=== PATIENT | male | born 1960 | race Caucasian/White ===

== ENCOUNTER 2017-03-07 12:27 | Emergency (ER) | payer MEDICARE, MEDICAID ==
[~2017-03-07] VITALS: Ht 167.6 cm; Wt 54.4 kg
[~2017-03-07 12:27] MED LIST: ALBUTEROL-200 PUFFS/ IH; ETODOLAC400 MG PO; FLEXERIL10 MG PO; KEPPRA 500 MG500 MG PO; LEVAQUIN 750 M750 MG PO; LEXAPRO 20 MG T20 MG PO; LISINOPRIL 10MG10 MG PO; NAPROSYN500 M1 PO; NEURONTIN 300M300 MG PO; NEURONTIN800 MG PO; OXYCODONE HCL10 M1 PO; PERCOCET 10 MG1 EACH PO; PERCOCET 325 MG1 TA3 PO; PRILOSEC40 MG PO; SIMVASTATIN20 MG PO; WELLBUTRIN 75MG75 MG PO; XANAX 1MG TABLET1 MG PO
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
[2017-03-07 12:58] LABS: LYMPH # 2.4 K/mm3 (0.7-4.5); LYMPH % 20.5 % (10-50)
[2017-03-07 13:08] LABS: BUN 14 mg/dL (7-18); GFR (ESTIMATED) 77 ML/MIN (>60)
--- OUTSIDE RECORDS SUMMARY | 2017-03-07 13:51 | External Medical Summary Rpt | CCD ---
Author Author , MARIE Organization MARIE Address Unknown Phone [email or web address] Care Team Providers Care Inside Wirer Name Role Phone AHMED ADN, AHMED ADN Unavailable Unavailable AHMED, GUY A, Unavailable Unavailable AHMED, GUY A [facility], Unavailable Unavailable [employer] AIKAT SHA, AIKAT SHA Unavailable Unavailable ALHAJERI ABD, Unavailable Unavailable ALHAJERI ABD ALLRAN JR HANK, ALLRAN Unavailable Unavailable JR HANK SAMMARINESE AMBULETT & Unavailable Unavailable AMBULANC, SAMMARINESE AMBULETT & AMBULANC SAMMARINESE AMBULETT & Unavailable Unavailable AMBULANC, SAMMARINESE AMBULETT & AMBULANC DERIK MARAVILLA Unavailable Unavailable OMAR ROSENBERG Unavailable Unavailable OMAR MAXWELL, Unavailable Unavailable ,PSC, OMAR MAXWELL MD,PSC SKY HINSON Unavailable Unavailable JAKE BENSALEM DOMNIIK, Unavailable Unavailable BENSALEM DOMINIK HAMILTON, HAMILTON Unavailable Unavailable HAMILTON ALL, HAMILTON ALL Unavailable Unavailable [facility] Unavailable Unavailable [facility] [place] Unavailable Unavailable [facility] Unavailable Unavailable SERVICE, [facility] Unavailable Unavailable [facility], [facility] Unavailable Unavailable CONSULTANTS O, [facility] AMARJIT TIJERINA, Unavailable Unavailable AMARJIT TIJERINA KAITYKAITY LONGORIA Unavailable Unavailable RYA DANO COATES Unavailable Unavailable FABRICE GATES, Unavailable Unavailable FABRICE MATSON [facility], Unavailable Unavailable [facility] HARDING BRONSON, HARDING BRONSON Unavailable Unavailable HARDING, PANCHITO A, Unavailable Unavailable HARDING, PANCHITO A [facility] Unavailable Unavailable AN[facility]ESIA P[facility], [facility] Unavailable Unavailable AND RE[facility], [facility] COOK JESSI, COOK JESSI Unavailable Unavailable NAZANIN REID, Unavailable Unavailable NAZANIN REID NISHI JR MICHAEL, NISHI Unavailable Unavailable JR MICHAEL DISANTIS TIANNA, Unavailable Unavailable DISANTIS TIANNA TONI, G T, TONI, G Unavailable Unavailable T [facility], [facility] Unavailable Unavailable ELEANOR OTOOLE, Unavailable Unavailable ELEANOR OTOOLE GLORIA, BURKE Unavailable Unavailable GLORIA GAL THO, GAL THO Unavailable Unavailable PAWAN CARLITOS, Unavailable Unavailable PAWAN CARLITOS GHALI GALI, GHALI GALI Unavailable Unavailable MCCARTHY DASHA, Unavailable Unavailable MCCARTHY DASHA MARIE HARVEY Unavailable Unavailable DEDRA YARELI RHO, YARELI Unavailable Unavailable RHO YARELI, SOUARV G, Unavailable Unavailable YARELI, SOURAV G SPENCERCHGISSEL, Unavailable Unavailable STAS Chance, STAS HIDALGO BARRY D, Unavailable Unavailable MALVIN DE LA O JASON A, Unavailable Unavailable CLEMONSSONJA MCCLAIN [facility] Unavailable Unavailable INC, [facility] Unavailable Unavailable HOSPITAL P, [facility] P EVELIO CRENSHAW, FRASER Unavailable Unavailable FLOWER VLADIMIR FRASER S, Unavailable Unavailable VLADIMIR FRASER S [facility], Unavailable Unavailable [facility] MILES MCKENNA Unavailable Unavailable JOAQUINA BOWMAN, Unavailable Unavailable JOAQUINA BOWMAN HUBER JUL Unavailable Unavailable CHING ALEMAN, CHING Unavailable Unavailable ASH MITA II ELIAZAR, MITA Unavailable Unavailable II ELIAZAR MELENDEZ-CROW GEOVANNY, Unavailable Unavailable MELENDEZ-CROW GEOVANNY MELENDEZ-CROW GEOVANNY, Unavailable Unavailable MELENDEZ-CROW GEOVANNY [facility] Unavailable Unavailable CLINIC, [facility] Unavailable Unavailable IMAGING [facility], [facility] TORSTEN RADHA, TORSTEN RADHA Unavailable Unavailable DMITRY C, DMITRY C Unavailable [facility]available [facility] Unavailable Unavailable [facility], [facility] Unavailable Unavailable HOLDING, [facility] LORNE JR DWI, LORNE Unavailable Unavailable JR DWI KRISTIAN ARRIOLA, Unavailable Unavailable KRISTIAN ARRIOLA MD, Unavailable Unavailable Tyron Briceño MD SAVANNAH ANT, SAVANNAH Unavailable Unavailable ANT [facility] Unavailable Unavailable SERVICES, [facility] Unavailable Unavailable ASSOCIAT, [facility] MERHAR GAR, MERHAR Unavailable Unavailable [facility] Unavailable Unavailable [facility], [facility] IN [facility]OS ITZ OLIVAREZ, Unavailable Unavailable ITZ OLIVAREZ GRAHAM MELISSA, GRAHAM MELISSA Unavailable Unavailable [facility] Unavailable Unavailable [facility], [facility], Unavailable Unavailable [facility] Unavailable Unavailable AMBULANCE SE, [facility] Unavailable Unavailable AMBULANCE SE, [facility] Unavailable Unavailable HEALTH, [facility] NICKELS TIANNA, NICKELS Unavailable Unavailable TIANNA NICKL III SAMANTHA, NICKL Unavailable Unavailable III SAMANTHA BRONSON MEHDI LOPEZ Unavailable Unavailable CONSULTING SRV, BRONSON HARDING MD CONSULTING SRV [facility], Unavailable Unavailable PLL[facility], [facility] PELLANT FLOWER, PELLANT Unavailable Unavailable FLOWER RENUSCH, RENUSCH Unavailable Unavailable RENUSCH RADHA, RENUSCH Unavailable Unavailable RADHA LUKE, LUCERO Unavailable Unavailable ANT MARCIO LUCERO M, Unavailable Unavailable MARCIO LUCERO M JR. REGINALD WALTON, Unavailable Unavailable JR. REGINALD WALTON GAN SAMANTHA, GAN Unavailable Unavailable SAMANTHA ERIC MAT, Unavailable Unavailable ERIC MAT SOKAN BAB, SOKAN BAB Unavailable Unavailable SOTINGEANU JAKE, Unavailable Unavailable SOTINGEANU [facility] Unavailable Unavailable [facility], Unavailable Unavailable [facility] CLARKE SCO, CLARKE Unavailable Unavailable SCO TAMNILEN, FERMIN, Unavailable Unavailable TAMJOSÉ MIGUEL ALBERTOET BORIS VERONIKA, BORIS Unavailable Unavailable VERONIKA MATTHEWS LUIS, MATTHEWS LUIS Unavailable Unavailable [facility] Unavailable Unavailable ASSIST, [facility], Unavailable Unavailable [facility] Unavailable Unavailable [facility], [facility] INTER VILLAFLOR OSI, Unavailable Unavailable VILLAFLOR OSI VILLAFLOR OSI, Unavailable Unavailable VILLAFLOR OSI VILLAFLOR, JAG M, Unavailable Unavailable VILLAFLOR, JAG M MIRIAM, Unavailable Unavailable MIRIAM WIGNAKUMAR, Unavailable Unavailable VELUPILLAI, WIGNAKUMAR, VELUPILLAI CABRAL JAM, CABRAL JAM Unavailable Unavailable JAMIE MAT, JAMIE MAT Unavailable Unavailable CHELSEA AYALA, Unavailable Unavailable CHELSEA AYALA Purpose Continuity of Care Document - 09-12-2008 through 2016 Problems Code Diagnosis DOS Provider Status I10 ESSENTIAL 10-29-2016 [facility], HYPERTENSIO 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 J441 CHRONIC 03-31-2016 [facility] OBSTRUCTIVE PHYSICIANS, PULMONARY [facility] DZ W/EXACERBAT ION R05 COUGH 03-31-2016 [facility] R079 CHEST PAIN 03-31-2016 [facility] UNSPECIFIED [facility] IM[facility]ING ASS Z720 TOBACCO USE 03-31-2016 [facility] G894 CHRONIC 03-25-2016 [facility] PAIN [facility] SYNDROME INC I2510 ASHD KAIBAB 03-25-2016 [facility] CORONARY [facility] ARTERY W/O INC ANGINA PECTORIS J449 CHRONIC 03-25-2016 [facility] OBSTRUCTIVE [facility] PULMONARY INC DISEASE UNS M549 DORSALGIA 03-14-2016 [facility] UNSPECIFIED PHYSICIANS, [facility] B74194 PERSONAL 03-14-2016 [facility] HISTORY OF [facility] NICOTINE INC DEPENDENCE K8590 ACUTE 02-21-2016 [facility] PANCREATITI SERV S WO FOUNDATION NECROSIS/IN FECTION UNSPEC I714 ABDOMINAL 02-01-2016 [facility] AORTIC [facility]ICAL ANEURYSM IMAGING ASS WITHOUT RUPTURE K838 OTHER 02-01-2016 [facility] SPECIFIED MEDICAL DISEASES OF IMAGING ASS BILIARY TRACT K868 OTHER 02-01-2016 [facility] SPECIFIED MEDICAL DISEASES OF IMAGING ASS PANCREAS B62022 ENCOUNTER 01-30-2016 [facility] FOR [facility] PREPROCEDUR INC AL LABORATORY EXAM G8929 OTHER 01-16-2016 [facility] CHRONIC PHYSICIANS PAIN GROUP M4694 UNS 01-16-2016 [facility] INFLAMMATOR PHYSICIANS Y GROUP SPONDYLOPAT HY THORACIC REGION Z61513 OTHER LONG 01-16-2016 [facility] TERM [facility] CURRENT INC DRUG THERAPY L0390 CELLULITIS 01-08-2016 [facility] UNSPECIFIED PHYSICIANS GROUP M5090 CERVICAL 01-08-2016 [facility] DISC PHYSICIANS DISORDER GROUP UNS UNS CERVICAL REGION R1012 LEFT UPPER 10-22-2015 [facility] QUADRANT SERV PAIN FOUNDATION L50491 PAIN IN ARM 10-14-2015 [facility] UNSPECIFIED AMBULANCE SE R1010 UPPER 10-14-2015 [facility] ABDOMINAL [facility] PAIN INC UNSPECIFIED O614BUG COMP 10-14-2015 [facility] AMBULANCE CARE UNS SE INITIAL ENCNTR M4802 SPINAL 09-22-2015 [facility] STENOSIS PHYSICIANS CERVICAL GROUP REGION M9983 OTHER 09-11-2015 [facility] BIOMECHANIC PHYSICIANS AL LESIONS GROUP OF LUMBAR REGION K8050 CALCULUS BD 09-06-2015 [facility] W/O SERV CHOLANGITIS FOUNDATION /CHOLECYST W/O OBST K831 OBSTRUCTION 09-06-2015 [facility] OF BILE SERV DUCT FOUNDATION R188 OTHER 09-05-2015 [facility] ASCITES SERV FOUNDATION R740 NONSPECIFIC 09-05-2015 [facility] ELEVATION SERV LEVELS FOUNDATION TRANSAMINAS E & LDH K859 ACUTE 09-04-2015 [facility] PANCREATITI N PHYSICIAN S SERVI UNSPECIFIED E785 HYPERLIPIDE 09-03-2015 [facility] UNSPECIFIED K567 ILEUS 09-03-2015 [facility] I259 CHRONIC 09-02-2015 [facility] ISCHEMIC SERV HEART FOUNDATION DISEASE UNSPECIFIED K8020 CALCULUS GB 09-02-2015 [facility] W/O PHYSICIANS, CHOLECYSTIT PLLC IS W/O OBSTRUCTION R7989 OTHER SPEC 09-02-2015 [facility] ABNORMAL MEDICAL FINDINGS IMAGING ASS BLOOD CHEMISTRY I422 OTHER 08-18-2015 [facility] HYPERTROPHI MEM HOSP C INC CARDIOMYOPA THY M488X6 OTHER 08-18-2015 [facility] SPECIFIED PHYSICIANS SPONDYLOPAT GROUP HIES LUMBAR REGION E860 DEHYDRATION 08-04-2015 [facility], PLLC R1033 PERIUMBILIC 08-04-2015 [facility] AL PAIN MEDICAL IMAGING ASS R110 NAUSEA 08-04-2015 [facility] AMBULANCE SE R112 NAUSEA WITH 08-04-2015 [facility] VOMITING PHYSICIANS, UNSPECIFIED PLLC Z955 PRESENCE OF 08-04-2015 [facility] P IMPLANT & GRAFT C54709 SPONDYLOSIS 06-30-2015 [facility] W/O MEDICAL MYELOPATH/R IMAGING ASS ADICULOPATH Y LUMB RGN M5126 OT 06-30-2015 [facility] INTERVERTEB MEDICAL RAL DISC IMAGING ASS DISPLACEMEN T LUMBAR RGN M546 PAIN IN 06-30-2015 [facility] THORACIC MEDICAL SPINE IMAGING ASS R0989 OT SPEC SX 05-25-2015 [facility] & SIGNS MEDICAL INVLV THE IMAGING ASS CIRC & RESP SYS M4692 UNS 05-03-2015 [facility] INFLAMMATOR PHYSICIANS Y GROUP SPONDYLOPAT HY CERVICAL REGION M5030 OT 05-03-2015 [facility] CERVICAL PHYSICIANS DISC GROUP DEGENERATIO N UNS CERV REGION M9981 OTHER 05-03-2015 [facility] BIOMECHANIC PHYSICIANS AL LESIONS GROUP OF CERVICAL REGION R9089 OT 05-03-2015 [facility] ABNORMAL PHYSICIANS FIND ON DX GROUP IMAGING [facility] NERV SYS M5032 [facility] CERV 04-21-2015 [place] DISC MEDICAL DEGENERATIO IMAGING ASS N MID-CERVICA L REGION 58130 BARRETTS 08-06-2013 [facility]OP[facility]AG[facility] PSC 48135 ATROPHIC 08-06-2013 NEW GASTRITIS [place] WITHOUT CLINIC PSC MENTION OF HEMORRHAGE 69178 ABDOMINAL 08-06-2013 [facility] PAIN, H UNSPECIFIED ANESTHESIA SITE PSC 496 CHRONIC 08-03-2013 [facility] OBSTRUCTION ASSOCIAT NEC 15706 SOLITARY 08-03-2013 [facility] PULMONARY RADIOLOGY NODULE ASSOCIAT 4414 ABDOMINAL 08-01-2013 [facility] ANEURYSM RADIOLOGY WITHOUT ASSOCIAT MENTION OF RUPTURE V4579 OTHER 08-01-2013 [facility] ACQUIRED RADIOLOGY ABSENCE OF ASSOCIAT ORGAN 59499 UNSPEC 07-21-2013 [facility] EPILEPSY [facility] WITHOUT RURAL MENTION HEALTH INTRACT EPILEPSY 4619 ACUTE 07-21-2013 [facility] SINUSITIS, [facility] UNSPECIFIED RURAL HEALTH 2724 OTHER AND 07-08-2013 [facility] UNSPECIFIED [facility] RURAL HYPERLIPIDE HEALTH ANGEL 4011 ESSENTIAL 07-08-2013 [facility] HYPERTENSIO [facility] N, BENIGN [facility] 53630 COR 07-08-2013 [facility] ATHEROSLERO [facility] UNSPEC RURAL TYPE VESSEL HEALTH KAIBAB/LUPILLO T 64629 ACUT 07-06-2013 [facility] LAR INFARCT UNS CONSULTANTS SITE EPIS O CARE UNS 304.70 304.70 04-10-2013 [place] OPIOID/OTHE [facility] DEP-UNSPEC 304.71 304.71 04-10-2013 [place] OPIOID/OTHE [facility] DEP-CONTIN 305.00 305.00 04-10-2013 [place] [facility] C 780.39 780.39 04-10-2013 [place] OTHER [facility] 7862 COUGH 04-10-2013 [facility] 7842 SWELLING 03-09-2013 [facility] MASS OR RADIOLOGY LUMP IN ASSOCIAT HEAD AND NECK 3384 CHRONIC 02-17-2013 [facility] PAIN [facility] SYNDROME [facility] 7210 CERVICAL 02-17-2013 [facility] SPONDYLOSIS [facility] WITHOUT [facility] MYELOPATHY [facility] 7231 CERVICALGIA 02-17-2013 [facility] 41663 HYPERTROPHY 10-13-2012 [facility] PROSTATE HEALTH W/O UR OBST CLINIC & OTH LUTS 7804 DIZZINESS 10-13-2012 [facility] GIDDINESS CLINIC 65956 INSOMNIA 10-13-2012 [facility] UNSPECIFIED HEALTH CLINIC 7224 DEGENERATIO 09-24-2012 [facility] N OF H SLEEP AND CERVICAL REHA INTERVERTEB RAL DISC 7234 BRACHIAL 09-24-2012 [facility] NEURITIS OR H SLEEP AND REHA RADICULITIS NOS V5417 AFTERCARE 09-24-2012 [facility] SERV TRAUMATIC FOUNDATIO FRACTURE [place]E V5489 OTHER 09-24-2012 [facility] AFTERCARE E8889 UNSPECIFIED 09-22-2012 [facility]IN[facility] 4400 ATHEROSCLER 09-16-2012 [facility] OSIS OF SERV AORTA FOUNDATIO 82030 PATHOLOGIC 09-16-2012 [facility] FRACTURE OF SERV VERTEBRAE FOUNDATIO 84140 OTHER 09-16-2012 [facility] CONVULSIONS SERV FOUNDATIO 02144 CLOS FX 09-16-2012 [facility] VERTEBRA UNS LEVL W/O SP CRD INJURY 90596 CLOS FX C3 09-16-2012 [facility] [place] SERV W/O MENTION FOUNDATIO SP CRD INJURY 16799 SUBARACH 09-16-2012 [facility] HEMOR [facility] SERV INJR W/O FOUNDATIO OPN ICW UNS SOC 18199 SUBARACH 09-16-2012 [facility] INJR W/O OPN ICW NO LOC 9582 SEC&RECURRE 09-16-2012 SAMMARINESE NT AMBULETT & HEMORRHAGE AMBULANC AN EARLY COMP TRAUMA V454 ARTHRODESIS 09-16-2012 [facility] 21773 OTH FORM 09-15-2012 [facility] RURAL EPILEPSY & HEALTH RECUR CLINIC SEIZUR NO INTRACT EPIL 69745 OTHER 09-15-2012 [facility] DISEASES OF RADIOLOGY LUNG NOT ASSOCIAT ELSEWHERE CLASSIFIED 01915 SWELLING OF 09-15-2012 [facility] LIMB RADIOLOGY ASSOCIAT 51542 ALTERED 09-15-2012 [facility] MENTAL HEALTH STATUS CLINIC 920 CONTUSION 09-15-2012 [facility] OF FACE RADIOLOGY SCALP AND ASSOCIAT NECK EXCEPT EYE 7048 OTHER 05-21-2012 [facility] SPECIFIED HEALTH DISEASE OF CLINIC HAIR&HAIR FOLLICLES 6820 CELLULITIS 05-14-2012 [facility] RURAL AND ABSCESS HEALTH OF FACE CLINIC 2811 OTHER 12-09-2011 [facility] VITAMIN B12 OSI DEFICIENCY ANEMIA 98190 OSTEOARTHRO 12-09-2011 [facility] S UNSPEC OSI WHETHER GEN/LOC UNSPEC SITE 56023 UNSPECIFIED 10-28-2011 [facility] DISORDER RADIOLOGY OF SHOULDER ASSOCIAT JOINT 9057 LATE EFF 10-28-2011 [facility], SPRAIN&STRA ACQUISITIONS LIBRARIAN IN W/O [facility] MENTION HOS TENDON INJURY V4589 OTHER 10-28-2011 [facility], POSTSURGICA ACQUISITIONS LIBRARIAN L STATUS [facility] OTHER HOS 69165 SINOATRIAL 10-07-2011 [facility] NODE OSI DYSFUNCTION 62929 OSTEOARTHRO 07-29-2011 [facility] S UNSPEC OSI WHETHER GEN/LOC SHLDR REGION 24129 PRECORDIAL 03-26-[address] MD CONSULTING SRV 2768 HYPOPOTASSE 12-10-2010 CAROLYNE ANGEL OSI 586 UNSPECIFIED 12-10-2010 [facility] FAILURE V1551 PERSONAL 12-10-2010 O[facility] HISTORY OF OSI TRAUMATIC FRACTURE 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 W/O MENTION SP CRD INJURY 7028 OTHER 11-21-2010 [facility] SPECIFIED SERV DERMATOSES FOUNDATIO 14863 CLOSED 11-12-2010 [facility] FRACTURE OF OSI HEAD OF RADIUS 7384 ACQUIRED 11-02-2010 [facility] SPONDYLOLIS SERV THESIS FOUNDATIO 42368 CLOS FX C6 11-02-2010 [facility]RA PHYSICIANS W/O MENTION ASSIST SP CRD INJURY 4019 UNSPECIFIED 11-01-2010 [facility] HYPERTENSIO INTER N 4580 ORTHOSTATIC 11-01-2010 [facility] HYPOTENSION INTER E8869 OTH & UNS 11-01-2010 [facility] FALL ON INTER SAME LEVEL 7802 SYNCOPE AND 10-31-2010 [facility] COLLAPSE SERV FOUNDATIO 39642 OTH NONSPC 10-31-2010 [facility] ABN FINDNG SERV RAD&OTH EXM FOUNDATIO BODY STRUCTURE V7281 PRE-OPERATI 10-31-2010 [facility] CARDIOVASCU FOUNDATIO LAR EXAMINATION 2761 HYPOSMOLALI 10-30-2010 [facility] TY AND/OR HOSPITAL HYPONATREMI A 58811 SWELLING OR 10-30-2010 [facility] MASS OF RADIOLOGY EYE ASSOCIAT 41409 OCCLUSION&S 10-30-2010 [facility] TENOS SERV CAROTID ART FOUNDATIO W/O MENTION INFARCT 44047 OCCLUSION&S 10-30-2010 [facility] TENOS VERT SERV ART W/O FOUNDATIO MENTION INFARCT 93558 OTHER 10-30-2010 [facility] DISEASES OF SERV NASAL FOUNDATIO CAVITY AND SINUSES 08526 DEGEN 10-30-2010 [facility] LUMBAR/LUMB SERV OSACRAL FOUNDATIO INTERVERTEB RAL DISC 7226 DEGENERATIO 10-30-2010 [facility] RAL DISC SITE UNSPEC 7230 SPINAL 10-30-2010 [facility] [place] STENOSIS IN RADIOLOGY CERVICAL REGION 39138 OTHER 10-30-2010 [facility] FATIGUE 7840 HEADACHE 10-30-2010 [facility] ASSOCIAT 42604 SHORTNESS 10-30-2010 [facility] 43047 URINARY 10-30-2010 [facility] 7937 NONSPC ABN 10-30-2010 [facility] FINDNG RAD RADIOLOGY & OTH EXM ASSOCIAT MUSCULSKELT L SYS 9210 BLACK EYE, 10-30-2010 [facility] NOT RADIOLOGY OTHERWISE ASSOCIAT SPECIFIED 12142 HEAD 10-30-2010 [facility] INJURY, RADIOLOGY UNSPECIFIED ASSOCIAT 58773 INJURY OF 10-30-2010 [facility] FACE AND RADIOLOGY NECK OTHER ASSOCIAT AND UNSPECIFIED 09245 OTHER 10-30-2010 [facility] INJURY OF RADIOLOGY OTHER SITES ASSOCIAT OF TRUNK E8490 PLACE OF 10-30-2010 [facility] OCCURRENCE, HOSPITAL HOME E8888 OTHER FALL 10-30-2010 [facility] 7869 OTH 08-27-2010 [facility] SYMPTOMS HOSPITAL INVOLVING RESPIRATORY SYSTEM&CHES T V5869 LONG-TERM 08-27-2010 [facility] (CURRENT) HOSPITAL USE OF OTHER MEDICATIONS 4739 UNSPECIFIED 08-17-2010 [facility] SINUSITIS [facility] 61223 HEMATURIA 08-17-2010 [place] UNSPECIFIED EMERGENCY SERVICES 47959 CHEST PAIN 08-17-2010 [facility] [place] UNSPECIFIED RADIOLOGY 02281 PAINFUL 08-17-2010 [place] RESPIRATION EMERGENCY SERVICES 7944 NONSPECIFIC 08-17-2010 [facility] HOSPITAL KIDNEY FUNCTION STUDY 7931 NONSPEC 07-09-2010 [facility] [place] FIND RAD RADIOLOGY OTH EXAM BODY STRUCT LUNG FIELD 9635 POISONING 04-19-2010 [facility] BY VITAMINS OSI NOT ELSEWHERE CLASSIFIED V0481 NEED 02-16-2010 [facility] PROPHYLACTI OSI C VACCINATION &INOCULATIO N FLU 49721 LOSS OF 02-14-2010 [facility] NKLIN GEOVANNY 04531 NAUSEA WITH 02-14-2010 [facility] VOMITING NKLIN GEOVANNY 78898 TRANSIENT 01-27-2010 [facility] IN ALTERATION [facility] 4139 OTHER AND 12-25-2009 CARDIOLOG[facility] UNSPECIFIED ASSOCIATES ANGINA OF MEGHAN PECTORIS 79589 SPONDYLOSIS 12-22-2009 [facility] UNSPEC OSI SITE W/O MENTION MYELOPATHY 2722 MIXED 12-20-2009 [facility] HYPERLIPIDE HOSPITAL ANGEL 3278 OTHER 12-07-2009 BRON[facility] ANDRADE MD SLEEP CONSULTING DISORDERS SRV 85393 HYPERSOMNIA 12-07-2009 [facility] HARDING MD UNSPECIFIED CONSULTING SRV 24320 DYSFNCT 12-05-2009 [facility] W/SLEEP HOSPITAL STGES/AROUS AL FRM SLEEP 58161 UNSPECIFIED 12-05-2009 [facility] V851 BODY MASS 12-05-2009 [facility] 19[facility]24 ADULT 91854 GENERALIZED 12-04-2009 [facility], ANXIETY JAG M DISORDER V173 FAMILY 11-14-2009 [facility] MEHDI HISTORY OF ISCHEMIC CONSULTING HEART SRV PSC DISEASE 2720 PURE 11-07-2009 [facility] 4920 EMPHYSEMATO 11-07-2009 [facility] [place] BLEB RADIOLOGY 486 PNEUMONIA, 10-05-2009 [facility]GANISM [facility] UNSPECIFIED ASSOCIATES PSC 514 PULMONARY 07-03-2009 [facility]AT HYPOSTASIS 3699 UNSPECIFIED 04-14-2009 [facility] VISUAL HOSPITAL LOSS 75208 UNSPECIFIED 04-14-2009 [facility] [place]ITAL [place]CTIVI TIS 23184 PAIN IN OR 04-14-2009 [place] [facility] FOUNDAT[facility] 34736 UNSPECIFIED 04-13-2009 [facility] SCLER[facility]IS [facility]OSPITAL 7220 DISPLCMT 03-14-2009 [facility] [place] CERV RADIOLOGY INTERVERT DISC WITHOUT MYELOPATHY 84676 DEGEN 03-14-2009 [facility]/TH [facility] INTERVERTEB [facility]AL [facility]C 7241 PAIN IN 03-14-2009 [facility] [place] THORACIC RADIOLOGY SPINE 2763 ALKALOSIS 01-14-2009 K[facility]STIAN ARRIOLA 74645 [facility] 01-14-2009 ABIDA ARRIOLA ACUT/CHRN W/O HEMOR PERF/OBST 5770 ACUTE 01-14-2009 [facility] PANCREATITI KRISTIAN Faye S 91572 DEHYDRATION 10-09-2008 WIGNAKUMAR, VELUPILLAI 5771 CHRONIC 10-09-2008 WIGNAKUMAR, PANCREATITI VELUPILLAI S 38351 ABDOMINAL 10-09-2008 WIGNAKUMAR, PAIN, VELUPILLAI EPIGASTRIC 60334 UNSPECIFIED 10-08-2008 [facility]OP[facility]AG[facility]IS [facility]OSPITAL 20124 CHRON/UNS 10-08-2008 [facility] W[facility] W/O MENTION OBST 10862 ACUT DUOD 10-08-2008 [facility] W/[facility] W/O MENTION ASSOC OBSTRUCTION 54700 UNS 10-08-2008 [facility] GASTRITIS&G [facility] ASTRODUODIT [facility] IS W/O MENTION HEMORR 5362 PERSISTENT 10-08-2008 [facility] MEDICINE [facility]OC 5368 DYSPEPSIA&O 10-08-2008 [facility] DISORDERS [facility] FUNCTION STOMACH 5533 DIAPHRAGMAT 10-08-2008 [facility] [place] [facility] W/O RADIOLOGY MENTION OBSTRUCTION /GANGREN 00341 OTHER 09-14-2008 [facility] SPECIFIED RADIOLOGY DISORDER OF ASSOCIATES INTESTINES PSC Allergies, Adverse Reactions, Alerts Type Allergy to substance Adverse Reaction to Substance Substance Reaction Severity STEROIDS Unknown Unknown Medications Na ND Rx Da Fi Fi Am Da Di Ph RX Ph St me C No te ll ll ou ys ag ar # ys at rm s nt no ma ic us Or Da si cy ia de te s n re d CL 00 11 0 No ON 90 -2 ID 45 3- Lo IN 65 20 ng E 66 13 er HC 1 L Ac 0. ti 1 ve MG TA BL ET Immunization Name Date Rout CVX Reac Dose Comm Prov Is Faci e tion ent ider Refu lity Give sed n IIV3 10-0 141 VILL No VILL 1-20 AFLO AFLO VACC 10 R R INE OSI SPLI T VIRU OSI S 0.5 ML DOSA GE IM USE Vital Signs 04-10-2013 17:13 Name Value Interpretat Reference Comment ion Range BP 84 mm[Hg] Diastolic BP Systolic 125 mm[Hg] Heart 90 /min Rate/Pulse O2% 97 % Respiratory 20 /min Rate 04-10-2013 14:51 Name Value Interpretat Reference Comment ion Range BP 92 mm[Hg] Diastolic BP Systolic 149 mm[Hg] Heart 90 /min Rate/Pulse O2% 97 % Respiratory 20 /min Rate Results Labs Lab Lab Date Result Refere Interp Status Commen Order Detail nces retati t Range on SYPHILIS IGG TEST (EIA) (02-15-2014 08:00) Test Kitchen Home Economist: Zenaida Ordonez MD FCAP Lab: [facility] [place] [facility] Services Lab Address: [address] [place] [address], [address] [place] [address] 02-15-2014 8:00 am Specimen Collection Start Date/Time: Assistant Plant Controller: Specimen [email or web address] 02-18-2014 9:14 am Date/Time: [facility]-18-2014 2:37 pm Results Rpt/Status Change Date/Time: This report contains patient information that must be protected in accordance with the Health Insurance Portability and Accountability Act. COLLECT NA complet OR 014 ed 08:00 ETHNICI W complet TY 014 ed 08:00 PURPOSE ROUTINE complet OF 014 ed EXAM 08:00 SPECIME BLOOD complet N 014 ed SOURCE 08:00 CHART [id number] complet NUMBER 014 ed 08:00 SYPHILI NON-ROBERTO complet S IGG 014 CTIVE ed TEST 08:00 (EIA) Comment: METHOD OF ANALYSIS: EIA Comment: NORMAL RANGE: NON-REACTIVE Comment: \E\.br\E\This report contains patient information that must be protected in accordance with the Health Insurance Portability and Accountability Act. Treponema pallidum IgG Ab [Presence] in Serum by Immunoassay (02-15-2014 08:00) Trepone NON-ROBERTO complet ma 014 CTIVE ed pallidu 08:00 m IgG Ab [Presen ce] in Serum by Immunoa ssay Treponema pallidum IgG Ab [Presence] in Serum by Immunoassay (02-15-2014 08:00) COLLECT NA complet OR 014 ed 08:00 ETHNICI W complet TY 014 ed 08:00 PURPOSE ROUTINE complet OF 014 ed EXAM 08:00 SPECIME BLOOD complet N 014 ed SOURCE 08:00 CHART [id number] complet NUMBER 014 ed 08:00 Trepone Pending complet ma 014 ed pallidu 08:00 m IgG Ab [Presen ce] in Serum by Immunoa ssay COMPREHENSIVE METABOLIC PANEL (04-10-2013 13:50) Glucose 97 74-106 complet 013 mg/dL ed Bld-mCn 13:50 c BUN 7 mg/dL 7-18 complet Bld-mCn 013 ed c 13:50 Creat 0.9 0.8-1.3 complet SerPl-m 013 mg/dL ed Cnc 13:50 Creat 79 50-200 complet Cl 013 ML/MIN ed predict 13:50 ed SerPl C-G-vRa te GFR/BSA 89 Greater complet .pred 013 ML/MIN than ed SerPl 13:50 60 Schwart z-vRate Sodium 138 136-145 complet SerPl-s 013 mmoL/L ed Cnc 13:50 Potassi 4.3 3.5-5.1 complet um 013 mmoL/L ed SerPl-s 13:50 Cnc Chlorid 101 98-107 complet e 013 mmoL/L ed SerPl-s 13:50 Cnc CO2 11-23-2 29 21.0-32 complet SerPl-s 013 mmoL/L .0 ed Cnc 13:50 Calcium 11-23-2 8.5 8.5-10. complet 013 mg/dL 1 ed SerPl-m 13:50 Cnc Prot 11-23-2 8.0 6.4-8.2 complet SerPl-m 013 gm/dL ed Cnc 13:50 Albumin 11-23-2 3.2 3.4-5.0 complet 013 gm/dL ed SerPl-m 13:50 Cnc Globuli 11-23-2 4.8 1.3-3.2 complet n 013 gm/dL ed Ser-mCn 13:50 c Albumin 11-23-2 0.7 UNK 1.1-1.8 complet /Glob 013 ed SerPl-m 13:50 Rto Bilirub 11-23-2 0.2 0.2-1.0 complet 013 mg/dL ed SerPl-m 13:50 Cnc AST 11-23-2 33 U/L 15-37 complet SerPl-c 013 ed Cnc 13:50 ALT 11-23-2 60 U/L 30-65 complet SerPl-c 013 ed Cnc 13:50 ALP 11-23-2 147 U/L 50-136 complet SerPl-c 013 ed Cnc 13:50 Acetamin SerPl-mCnc (04-10-2013 13:50) Acetami 11-23-2 0 ug/mL 10-30 complet n 013 ed SerPl-m 13:50 Cnc Ethanol Bld-mCnc (04-10-2013 13:50) Ethanol 11-23-2 0 mg/dL 0-99 complet 013 ed Bld-mCn 13:50 c Salicylates SerPl-mCnc (04-10-2013 13:50) Salicyl 11-23-2 5.0 2.8-20. complet ates 013 mg/dL 0 ed SerPl-m 13:50 Cnc CBC with AUTO DIFF (04-10-2013 13:50) WBC # 11-23-2 10.7 4.8-10. complet Bld 013 K/MM3 8 ed Auto 13:50 RBC # 11-23-2 4.61 4.6-6.2 complet Bld 013 M/mm3 ed Auto 13:50 Hgb 11-23-2 14.0 14.1-18 complet Bld-mCn 013 g/dL .0 ed c 13:50 Hct Fr 11-23-2 42.1 % 42.0-52 complet Bld 013 .0 ed 13:50 MCV RBC 11-23-2 91.1 fl 82.2-97 complet 013 .8 ed 13:50 MCH RBC 11-23-2 30.3 pg 27-31.2 complet Qn 013 ed Auto 13:50 MEAN 11-23-2 33.3 31.8-35 complet CORPUSC 013 g/dl .4 ed ULAR 13:50 HGB CONC RDW RBC 11-23-2 15.6 % 11.5-17 complet Auto 013 .5 ed 13:50 Platele 11-23-2 300 142-424 complet t Bld 013 K/mm3 ed Ql 13:50 Manual MEAN 11-23-2 7.2 fl 7.4-10. complet PLATELE 013 4 ed T 13:50 VOLUME Granulo 11-23-2 72.6 % 37.0-80 complet cytes 013 .0 ed Fr Bld 13:50 Auto LYMPH % 11-23-2 17.6 % 10-50 complet 013 ed 13:50 Monocyt 11-23-2 6.0 % 1.7-9.3 complet es Fr 013 ed Bld 13:50 Auto Eosinop 11-23-2 3.3 % 0.1-12. complet hil Fr 013 0 ed Bld 13:50 Auto Basophi 11-23-2 0.5 % 0.1-2.0 complet ls Fr 013 ed Bld 13:50 Auto Granulo 11-23-2 7.8 1.3-8.0 complet cytes # 013 K/mm3 ed Bld 13:50 Auto Lymphoc 11-23-2 1.9 0.7-4.5 complet ytes Fr 013 K/mm3 ed Bld 13:50 Auto Monocyt 11-23-2 0.6 0.1-1.0 complet es # 013 K/mm3 ed Bld 13:50 Auto Eosinop 11-23-2 0.4 0.0-0.4 complet hil # 013 K/mm3 ed Bld 13:50 Auto Basophi 11-23-2 0.1 0-0.2 complet ls # 013 K/MM3 ed Bld 13:50 Auto URINALYSIS/COMPLETE (04-10-2013 13:50) URINE 11-23-2 YELLOW YELLOW complet COLOR 013 ed 13:50 URINE 11-23-2 CLEAR CLEAR complet APPEARA 013 ed NCE 13:50 URINE 11-23-2 NEGATIV NEG complet GLUCOSE 013 E ed - 13:50 DIPSTIC K URINE 11-23-2 NEGATIV NEG complet BILIRUB 013 E ed IN - 13:50 DIPSTIC K URINE 11-23-2 NEGATIV NEG complet KETONE 013 E mg/dL ed 13:50 URINE 11-23-2 Less 1.005-1 complet SPECIFI 013 than or .030 ed C 13:50 equal GRAVITY to 1.005 URINE 11-23-2 1+ NEG complet BLOOD 013 ed 13:50 URINE 11-23-2 6.5 UNK 5.0-8.5 complet PH 013 ed 13:50 URINE 11-23-2 NEGATIV NEG complet PROTEIN 013 E mg/dL ed - 13:50 DIPSTIC K URINE 11-23-2 0.2 NEG complet UROBILI 013 E.U./dL ed NOGEN - 13:50 DIPSTIC K URINE 11-23-2 NEGATIV NEG complet NITRATE 013 E ed - 13:50 DIPSTIC K URINE 11-23-2 NEGATIV NEG complet LEUK 013 E ed ESTERAS 13:50 E URINE 11-23-2 OCC 0 complet RBC 013 rbc/hpf ed 13:50 URINE 11-23-2 OCC OCC complet SQUAMOU 013 #/hpf ed S CELLS 13:50 Procedures Procedure [place] [address] [place] ABDOMEN & 7 MEDICAL PELVIS IMAGING W/[place] [address] [facility] LIPASE 7 [facility] INC INC BLOOD 93219 [facility] COUNT 7 [facility] COMPLETE INC INC AUTO&[place] [address] [facility] B[facility] AMYLASE 7 [facility] INC INC COMPREHEN 07030 [facility] SIVE 7 [facility] METABOLIC INC INC PANEL DRUG TEST 95608 OMAR NELSON PRSMV 7 SHANE MAXWELL MD,PSC CHEMISTRY ANALYZERS COMPREHEN 41003 OMAR NAVARRO 7 CELIA [place] [address] NELSON NELSON GLUTAMYLT 7 EMILY MAXWELL MD,PSC GAMMA BLOOD 13707 NELSON NELSON COUNT 7 EM MAXWELL MD,PSC AUTO&AUTO DIFRNTL WBC COLLECTIO 91327 NELSON NELSON N VENOUS 7 ART MAXWELL [place] [address] NELSON NELSON PHOSPHORU 7 Thomas MAXWELL MD,PSC INORGANIC BILIRUBIN 55451 NELSON NELSON DIRECT 7 MD ALISSA,[place] [address] NELSON PELLANT TESTOSTER 6 FLOWER MAXWELL TOTAL ,PSC COLLECTIO 10614 NELSON PELLANT N VENOUS 6 FLOWER MAXWELL MD,PSC VENIPUNCT URE BLOOD 01735 NELSON PELLANT COUNT 6 FLOWER MAXWELL MD,PSC AUTO&[place] [address] NELSON PELLANT GLUTAMYLT 6 FLOWER MAXWELL MD,PSC GAMMA COMPREHEN 09894 NELSON PELLANT SIVE 6 FLOWER MAXWELL MD,PSC PANEL DRUG TEST G0479 NELSON PELLANT 6 FLOWER MAXWELL PRESUMP;I ,PSC NSTRUMENT ED CHEMISTRY ANLYZER COMPREHEN 63600 [facility] B[facility] SIVE 6 [facility] [place] [address] [facility] INFUSION 6 [facility] THER INC INC PROPH ADDL SEQUENTIA L TO 1 HR PRESSURIZ 28570 [facility] ED/NONPRE 6 [facility] SSURIZED [place] [address] [facility] INFUSION 6 [facility] THERAPY/P INC INC ROPHYLAXI S /DX 1ST TO 1 HR BLOOD 49918 [facility] COUNT 6 [facility] COMPLETE INC INC AUTO&AUTO DIFRNTL WBC RADIOLOGI 31156 [facility] C EXAM 6 [facility] CHEST 2 INC INC VIEWS FRONTAL&L ATERAL INJECTION J2405 [facility] 6 [facility] ONDANSETR INC INC ON HCL PER 1 MG THERAPEUT 85035 [facility] IC 6 [facility] PROPHYLAC INC INC TIC/DX INJECTION SUBQ/IM THERAPEUT 09117 [facility] IC 6 [facility] PROPHYLAC INC INC TIC/DX INJECTION SUBQ/IM LOCM Q9967 [facility] [phone] 6 [facility] MG/ML INC [place] [address] [facility] ANGIOGRAP 6 [facility] HY INC INC ABDOMEN W/CONTRAS T/[place] [address] ESSENCE HAMILTON ALL ABDOMEN 6 MEDICAL W/O IMAGING CONTRAST ASS MATERIAL COLLECTIO 11422 [facility] B[facility] N VENOUS 6 [facility] BLOOD INC INC VENIPUNCT URE BASIC 86567 [facility] METABOLIC 6 [facility] [place] [address] [facility] RETROPERI 6 [facility] TONEAL INC [place] W/[place] [address] ESSENCE HAM[place] ALL RETROPERI 6 MEDICAL TONEAL IMAGING REAL TIME ASS W/IMAGE LIMITED DRUG TST G0477 [facility] PRESUMP;C 6 [facility] PBL BEING INC INC READ DC OPT OBV ONLY GROUND A0425 [facility] [address] PER AMBULANCE AMBULANCE STATUTE SE SE MILE AMBULANCE A0429 [facility] SERVICE [address] [place] [address] AMBULANCE AMBULANCE EMERGENCY SE SE TRANSPORT GROUND A0425 [facility] [address] PER AMBULANCE AMBULANCE STATUTE SE SE MILE AMBULANCE A0429 [facility] [address] [place] [address] AMBULANCE AMBULANCE EMERGENCY SE SE TRANSPORT THERAPEUT 87659 [facility] IC 6 [facility] PROPHYLAC INC INC TIC/DX INJECTION SUBQ/IM DRUG TST G0477 [facility] PRESUMP;C 6 [facility] PBL BEING INC INC READ DC OPT OBV ONLY DRUG TST G0477 [facility] B[facility] PRESUMP;C 6 [facility] PBL BEING INC INC READ DC OPT OBV ONLY HOSPITAL 10416 [facility] DISCHARGE 6 DM DAY PHYSICIAN MANAGEMEN SERVI T > 30 MIN SBSQ 99875 [facility] 6 DM CARE/DAY PHYSICIAN 25 SERVI MINUTES SBSQ 73967 [facility] 6 DM CARE/DAY PHYSICIAN 25 SERVI MINUTES DIL PANC [id number] [facility] DUCT 6 Y Y [facility] DEV ASHLEY/ART OPENING ENDO EXCISION [id number] [facility] BILE 6 Y Y DUCT [facility] ASHLEY/ART OPENING ENDO DX DILATION [id number] [facility] BILE 6 Y Y DUCT [facility] DEVC ASHLEY/ART OP ENDO CMBN NDSC 05554 [facility] CATHJ 6 MEDICAL SCO BILIARY&P SERV NCRTC FOUNDATIO DUCTAL N SYS RS&I ERCP 35901 [place] NICKL III STENT 6 MEDICAL SAMANTHA PLACEMENT SERV FOUNDATIO BILIARY/P N ANCREATIC DUCT MRI 10406 [place] MELISSA ABDOMEN 6 MEDICAL W/O & SERV W/CONTRAS FOUNDATIO T N MATERIAL SBSQ 16746 [facility] 6 DM CARE/DAY PHYSICIAN 25 SERVI MINUTES SBSQ 00599 [facility] 6 DM CARE/DAY PHYSICIAN 35 SERVI MINUTES INITIAL 43333 [facility] 6 MEDICAL CARE/DAY SERV [place] [address] [place] ABDOMINAL 6 MEDICAL GLORIA REAL SERV TIME FOUNDATIO W/IMAGE N LIMITED INITIAL 28055 [facility] 6 DM MICHAEL CARE/DAY PHYSICIAN 70 SERVI MINUTES THER 24716 [facility] PROPH/DX 6 [facility] NJX EA INC INC SEQL IV PUSH SBST/[place] [address] [facility] INFUSION 6 [facility] THERAPY/P INC INC ROPHYLAXI S /DX 1ST TO 1 HR THERAPEUT 70577 [facility] IC 6 [facility] INJECTION INC INC IV PUSH EACH NEW DRUG LOCM Q9967 [facility] [phone] 6 [facility] MG/ML INC INC IODINE CONCENTRA TION PER ML INJECTION J2405 [facility] 6 [facility] ONDANSETR INC INC ON HCL PER 1 MG COMPREHEN 60606 [facility] SIVE 6 [facility] [place] [address] [facility] AMYLASE 6 [facility] INC INC BLOOD 82034 [facility] B[facility] COUNT 6 [facility] COMPLETE INC INC AUTO&[place] [address] [facility] PURCELLINEKE ABDOMEN & 6 MEDICAL JAKE PELVIS IMAGING W/[place] [address] [facility] LIPASE 6 [facility] INC INC AMBULANCE A0428 [facility] SERVICE 6 AMBULANCE AMBULANCE [facility] SERVICE SERVICE [facility] TRANSPORT GROUND A0425 [facility] MILEAGE 6 AMBULANCE AMBULANCE PER SERVICE SERVICE STATUTE MILE AMBULANCE A0429 [facility] SERVICE 6 [facility] AMBULANCE AMBULANCE EMERGENCY SE [place] [address] ESSENCE BACK ABDOMEN 6 MEDICAL REID W/O IMAGING CONTRAST ASS MATERIAL BLOOD 48743 [facility] COUNT 6 [facility] COMPLETE INC INC AUTO&AUTO DIFRNTL WBC COLLECTIO 38440 [facility] B[facility] N VENOUS 6 [facility] [place] [address] [facility] FREE 6 [facility] [place] [address] [facility] B[facility] THYROID 6 [facility] HOSP STIMULATI INC INC NG HORMONE TSH 3D 92015 ESSENCE NAZANIN RENDERING 6 MEDICAL REID W/INTERP IMAGING & ASS POSTPROCE SS SUPERVISI ON LIPID 88763 [facility] B[facility] PANEL 6 [facility] INC INC HEPATIC 87159 [facility] FUNCTION 6 [facility] PANEL INC INC BASIC 13410 [facility] METABOLIC 6 [facility] PANEL INC INC CALCIUM TOTAL ECG 12906 [facility] ROUTINE 6 [facility] ECG INC INC W/LEAST 12 LDS TRCG ONLY W/O I&R DRUG TST G0477 [facility] B[facility] PRESUMP;C 6 [facility] PBL BEING INC INC READ DC OPT OBV ONLY DRUG TEST G0481 [facility] DEFINITV [address] [address] ID INC INC METH P DAY 8-14 DRUG CL CV STRS 89341 [facility] TST 6 PHYSICIAN XERS&/OR S GROUP RX CONT ECG W/O I&R MYOCARDIA 07347 ESSENCE H[facility] ALL L SPECT 6 MEDICAL MULTIPLE IMAGING STUDIES ASS SBSQ 31294 [place] [address] PHYSICIAN GLORIA CARE/DAY S GROUP 15 MINUTES INITIAL [address] [place] [address] PHYSICIAN GLORIA CARE/DAY S GROUP [address] [place] [address] [facility] [place] ALL ABDOMEN & 6 MEDICAL PELVIS IMAGING W/CONTRAS ASS T MATERIAL ECG 19970 [facility] PRADHAN JR ROUTINE 6 [facility] W/LEAST P 12 LDS I&R ONLY ECG 14595 [facility] PRADHAN JR ROUTINE 6 [facility] W/LEAST P 12 LDS I&[place] [address] [facility] ALL ABDOMEN & 6 MEDICAL PELVIS IMAGING W/O ASS CONTRAST MATERIAL INITIAL 32751 [facility] 6 PHYSICIAN HANK CARE/DAY S GROUP 50 MINUTES GROUND A0425 [facility] MILEAGE [address] [place] [address] PER AMBULANCE AMBULANCE STATUTE SE SE MILE AMB A0427 [facility] SERVICE [address] [place] [address] ALS AMBULANCE AMBULANCE EMERGENCY SE SE TRANSPORT LEVEL 1 DRUG TST G0483 [facility] DEFINITV [address] [facility] [address] ID INC INC METH P DAY 22/MORE DR CL DRUG TST G0477 [facility] B[facility] PRESUMP;C 6 [facility] PBL BEING INC INC READ DC OPT OBV ONLY 3D 07594 ESSENCE BACK RENDERING 6 MEDICAL REID W/INTERP IMAGING & ASS POSTPROCE SS SUPERVISI ON MRI 07092 [place] NAZANIN SPINAL 6 MEDICAL REID CANAL IMAGING THORACIC ASS W/O CONTRAST MATRL MRI 87281 ESSENCE BACK SPINAL 6 MEDICAL REID CANAL IMAGING LUMBAR ASS W/O CONTRAST MATERIAL DRUG TST G0477 [facility] PRESUMP;C 6 [facility] PBL BEING INC INC READ DC OPT OBV ONLY F2 GENE 46094 [employer] ANALYSIS [employer] , [employer] , [employer] 61730X >A VARIANT ECG 20504 [facility] ROUTINE 6 [facility] ECG INC INC W/LEAST 12 LDS TRCG ONLY W/O I&R MTHFR 38917 [employer] GENE [employer] , [employer] ANALYSIS COMMON VARIANTS F5 55616 [employer] COAGULATI [employer] , [employer] ON FACTOR V ANAL LEIDEN VARIANT DUPLEX 87228 [facility] SCAN 6 [facility] EXTRACRAN INC INC IAL ART COMPL BI STUDY DRUG TST G0477 [facility] PRESUMP;C 6 [facility] PBL BEING INC INC READ DC OPT OBV ONLY E-STIM G0283 [facility] 1/> AREAS 5 [facility] OTH THAN INC INC WND CARE PART TX PLAN THERAPEUT 32700 [facility] IC PX 1/> 5 [facility] AREAS INC INC EACH 15 MIN EXERCISES APPL 23682 [facility] MODALITY 5 [facility] 1/> AREAS INC INC ELEC STIMJ UNATTENDE D APPLICATI 04186 [facility] ON 5 [facility] MODALITY INC INC 1/> AREAS HOT/COLD PACKS MANUAL 64371 [facility] THERAPY 5 [facility] TQS 1/> INC INC REGIONS EACH 15 MINUTES APPL 59136 [facility] MODALITY 5 [facility] 1/> AREAS INC INC ELEC STIMJ UNATTENDE D PHYSICAL 78508 [facility] B[facility] THERAPY 5 [facility] EVALUATIO INC INC N THERAPEUT 09670 [facility] IC PX 1/> 5 [facility] AREAS INC INC EACH 15 MIN EXERCISES E-STIM G0283 [facility] B[facility] 1/> AREAS 5 [facility] OTH THAN INC INC WND CARE PART TX PLAN CARRY MOV G8984 [facility] HANDLNG 5 [facility] OBJ FCN INC INC LERMA CUR TX REP INTRVL CAR MOV G8985 [facility] HDLG OBJ 5 [facility] PROJ GOAL INC INC TX OUTSET&RE P INTRVL 3D 58052 [facility] RENDERING 5 [facility] W/INTERP INC INC & POSTPROCE SS SUPERVISI ON MRI 08243 [facility] SPINAL 5 [facility] CANAL INC INC CERVICAL W/O CONTRAST MATRL ANES 61129 [facility] GAN UPPER GI 4 LTH SAMANTHA ENDOSCOPY ANESTHESI PROXIMAL A PSC TO DUODENUM SPECIAL 85970 GUDELIA ESCALANTE STAIN 4 [facility] 1 CLINIC MICROORGA PSC NISMS I&[place] [address] GUDELIA ESCALANTE SURG 4 [facility]INIC PSC GROSS&GLORIA ROSCOPIC EXAM RADEX ABD 00586 [facility] COMPL 4 FLOWER AQT ABD RADIOLOGY W/S/E/D ASSOCIAT V[place] [place] [address] [facility] ABDOMEN & 4 FLOWER PELVIS RADIOLOGY W/[place] PRQ 69693 [facility] ERIC TRLU 4 CULAR MAT CORONARY CONSULTAN STENT TS O W/ANGIO ONE ART/BRNCH ECHO 90966 [facility] TTHRC R-T 4 CULAR MAT 2D CONSULTAN W/WOM-MOD TS O E COMPL SPEC&COLR D CATH PLMT 51569 C[facility] ERIC L HRT & 4 CULAR MAT ARTS CONSULTAN W/NJX & TS O ANGIO IMG S&I INITIAL 94551 [facility] 4 CULAR MAT CARE/DAY CONSULTAN 70 TS O MINUTES RADIOLOGI 04790 ESSENCE Gotti 3 MEDICAL REID EXAMINATI IMAGING ON CHEST ASS SINGLE VIEW FRONTAL RADIOLOGI 42075 [facility] [place] YARELI C EXAM 3 RADIOLOGY RHO CHEST 2 VIEWS FRONTAL&L ATERAL RADIOLOGI 71286 [facility] C EXAM 3 FLOWER CHEST 2 RADIOLOGY VIEWS ASSOCIAT FRONTAL&[place] [address] [facility] HEAD/BRAI 3 FLOWER N W/O RADIOLOGY CONTRAST ASSOCIAT MATERIAL ELECTROEN 85815 MHC INC, MHC INC, CEPHALOGR 3 ACQUISITIONS LIBRARIAN ACQUISITIONS LIBRARIAN AM W/REC [facility] AWAKE&ASL CO HOS CO HOS EEP RADEX 43299 [facility] SPINE 3 Y Y CERVICAL [facility] 2 OR 3 VIEWS RADEX 08160 [place] SPINE 3 MEDICAL TIANNA CERVICAL SERV 2 [place] [address] [place] [address] [place] MERHAR THORACIC 3 MEDICAL GAR SPINE W/O SERV CONTRAST FOUNDATIO MATERIAL INJECTION J1953 [facility] 3 Y Y LEVETIRAC [facility] ETAM 10 MG INFUSION J7050 [facility] NORMAL 3 Y Y SALINE [facility] SOLUTION [address] [place] [address] [facility] INFUSION 3 Y Y THERAPY/P [facility] ROPHYLAXI S /DX 1ST TO 1 HR GROUND A0425 SAMMARINESE SAMMARINESE MILEAGE 3 AMBULETT AMBULETT PER & & STATUTE AMBULANC AMBULANC MILE INJECTION J2270 [facility] MORPHINE 3 Y Y SULFATE [facility] UP TO 10 MG THERAPEUT 67451 [facility] IC 3 Y Y INJECTION [facility] [place] [address] TITI MCCARTHY HEAD/BRAI 3 MEDICAL DASHA N W/[place] [address] [place] [facility] CERVICAL 3 MEDICAL GAR SPINE W/O SERV CONTRAST FOUNDATIO MATERIAL CT LUMBAR 137[address] [place] [facility] SPINE 3 MEDICAL GAR W/O SERV CONTRAST FOUNDATIO MATERIAL AMB [id number] [facility] SAM[facility]INESE SERVICE 3 [facility] AMBULETT ALS & & EMERGENCY AMBULANC AMBULANC TRANSPORT LEVEL 1 RADIOLOGI 63278 [facility] 3 JESSI CHEST 2 RADIOLOGY VIEWS ASSOCIAT FRONTAL&L ATERAL CT ORBIT 42985 [facility] SELLA/POS 3 JESSI T RADIOLOGY FOSSA/EAR ASSOCIAT W/[place] [address] ERVIN MATSON CERVICAL 3 JESSI SPINE W/O RADIOLOGY CONTRAST ASSOCIAT MATERIAL [facility] R[facility] 12 LDS I&[place] [address] ERVIN MATSON HEAD/BRAI 3 JESSI N W/O RADIOLOGY CONTRAST ASSOCIAT MATERIAL FLUOR 28155 [facility] II NEEDLE/CA 3 LTH SLEEP ELIAZAR TH AND REHA SPINE/PAR ASPINAL DX/THER ADDON MODERATE 00371 [facility] II SEDATJ 3 LTH SLEEP ELIAZAR SAME AND REHA PHYS/QHP 5/>YRS INIT 30 MIN NJX 34938 [facility] II DX/THER 3 LTH SLEEP ELIAZAR SBST AND REHA EPIDURAL/ SUBRACH CERV/THOR ACIC NJX 52417 [facility] II DX/THER 3 LTH SLEEP ELIAZAR SBST AND REHA EPIDURAL/ SUBRACH CERV/THOR ACIC MODERATE 56874 [facility]A II SEDATJ 3 LTH SLEEP ELIAZAR SAME AND REHA PHYS/QHP 5/>YRS INIT 30 MIN LOCM Q9966 [facility] [phone] [facility] MG/ML IODINE CONCENTRA TION PER ML FLUOR 23319 [facility]ON[facility] MITA II NEEDLE/CA 3 LTH SLEEP ELIAZAR TH AND REHA SPINE/PAR ASPINAL DX/THER ADDON TENS E0730 EMPI INC EMPI INC DEVICE 3 4/MORE LEADS MULTI NERVE STIMULATI ON TENS E0730 EMPI INC EMPI INC DEVICE 2 4/MORE LEADS MULTI NERVE STIMULATI ON RADIOLOGI 60363 ERVIN MATSON C EXAM 2 JESSI CHEST 2 RADIOLOGY VIEWS ASSOCIAT FRONTAL&L ATERAL FLUOR 37678 [facility] MITA II NEEDLE/CA 2 LTH SLEEP ELIAZAR TH AND REHA SPINE/PAR ASPINAL DX/[place] NJX 62663 [facility]A II DX/THER 2 LTH SLEEP ELIAZAR SBST AND REHA EPIDURAL/ SUBRACH CERV/THOR ACIC INJECTION J1030 [facility]OR VILLAFLOR 2 OSI OSI METHYLPRE DNISOLONE ACETATE 40 MG INJECTION J3420 VILLAFLOR VILLAFLOR VIT B-12 2 OSI OSI CYANOCOBA KAREN TO 1000 MCG THERAPEUT 38862 [facility] VILLAFLOR IC 2 OSI OSI PROPHYLAC TIC/DX INJECTION SUBQ/IM RADEX 55525 [facility] [place] NOW! [employer], [facility] [place] [facility], SHOULDER 2 ACQUISITIONS LIBRARIAN ACQUISITIONS LIBRARIAN COMPLETE SURESH SURESH MINIMUM 2 CO HOS CO HOS VIEWS INJECTION J1885 [employer], [facility] [place] [facility], 2 ACQUISITIONS LIBRARIAN ACQUISITIONS LIBRARIAN KETOROLAC SURESH SURESH CO HOS CO HOS TROMETHAM INE PER 15 MG INJECTION J1030 VILLAFLOR VILLAFLOR 2 OSI OSI METHYLPRE DNISOLONE ACETATE 40 MG INJECTION J3420 VILLAFLOR VILLAFLOR VIT B-12 2 OSI OSI CYANOCOBA KAREN TO 1000 MCG THERAPEUT 27530 V[facility]OR VILLAFLOR IC 2 OSI OSI PROPHYLAC TIC/DX INJECTION SUBQ/IM THERAPEUT 48528 VILLAFLOR VILLAFLOR IC 2 OSI OSI PROPHYLAC TIC/DX INJECTION SUBQ/IM INJECTION J3420 VILLAFLOR VILLAFLOR VIT B-12 2 OSI OSI CYANOCOBA KAREN TO 1000 MCG INJECTION J1030 VILLAFLOR VILLAFLOR 2 OSI OSI METHYLPRE DNISOLONE ACETATE 40 MG MODERATE 89146 [facility]A II SEDATJ 2 LTH SLEEP ELIAZAR SAME AND REHA PHYS/QHP 5/>YRS INIT 30 MIN NJX 04404 COMMONMICHELLE MITA II DX/THER 2 LTH SLEEP ELIAZAR SBST AND REHA EPIDURAL/ SUBRACH CERV/THOR ACIC ECG 83005 [facility] HARDING HARDING BRONSON ROUTINE 1 ECG CONSULTIN W/LEAST G SRV 12 LDS I&R ONLY THERAPEUT 61697 V[facility]AFLOR VILLAFLOR IC 1 OSI OSI PROPHYLAC TIC/DX INJECTION SUBQ/IM INJECTION J3420 [facility]OR VILLAFLOR VIT B-12 1 OSI OSI CYANOCOBA KAREN TO 1000 MCG INJECTION J3420 VILLAFLOR VILLAFLOR VIT B-12 1 OSI OSI CYANOCOBA KAREN TO 1000 MCG THERAPEUT 34550 VILLAFLOR VILLAFLOR IC 1 OSI OSI PROPHYLAC TIC/DX INJECTION SUBQ/IM RENAL 39347 SURESH PRINCE FUNCTION 1 CO [facility] COLLECTIO 24469 SURESH PRINCE N VENOUS 1 [facility] VENIPUNCT URE RADEX 79089 [place] TORSTEN RADHA SPINE 1 MEDICAL CERVICAL SERV 2 OR 3 FOUNDATIO VIEWS NASOPHARY 16516 [place] GAL THO NGOSCOPY 1 MEDICAL W/ENDOSCO SERV PE SPX FOUNDATIO ELECTROLY 86426 SURESH PRINCE TE PANEL 1 [facility] COLLECTIO 56263 SURESH PRINCE N VENOUS 1 [facility] VENIPUNCT URE RADEX 95384 TITI DISANTIS SPINE 1 MEDICAL TIANNA CERVICAL SERV 2 OR 3 FOUNDATIO VIEWS ANESTHESI 53942 [place] MARIE A 1 MEDICAL DEDRA EXTENSIVE SERV SPINE & FOUNDATIO SPINAL CORD OPTX&/RDC 45000 [facility] TJ VRT 1 [place] ASH FX&/DISLC PHYSICIAN PST 1 S ASSIST VRT SGM CR POSTERIOR 61332 [facility] 1 [place] [facility]SH SEGMENTAL PHYSICIAN S ASSIST INSTRUMEN TATION 3-6 VRT SEG OPTX&/RDC 28214 [facility] TJ VRT 1 [place] [facility]SH FX&/DISLC PHYSICIAN PST 1 S ASSIST VRT SGM EA ARTHRODES 49986 [facility] 1 [place] ASH PST/PSTLA PHYSICIAN T S ASSIST CERVICAL BELW C2 SGM ARTHRODES 43044 [facility] 1 [place] [facility] POSTERIOR PHYSICIAN /POSTEROL S ASSIST ATERAL EA ADDL INSJ 92774 [place] MARIE NON-TUNNE 1 MEDICAL DEDRA LED SERV CENTRAL FOUNDATIO VENOUS CATH AGE 5 YR/> ARTL 72666 [place] MARIE CATHJ/CAN 1 MEDICAL DEDRA NULJ SERV MNTR/FORBES FOUNDATIO SFUSION SPX PRQ RADEX 61143 TITI CABRAL JAM SPINE 1 1 MEDICAL VIEW SERV SPECIFY FOUNDATIO LEVEL SBSQ 27548 [facility] 1 Y OF N CARLITOS CARE/DAY [facility] 25 INTER MINUTES INITIAL 90806 [place] [facility] 1 MEDICAL CARE/DAY SERV 70 FOUNDATIO MINUTES ECHO 76281 [place] DERIK TTHRC R-T 1 MEDICAL ALI 2D SERV W/WOM-MOD FOUNDATIO E COMPL SPEC&COLR D ELECTROEN 93689 [place] CEPHALOGR 1 MEDICAL DOMINIK AM W/REC SERV AWAKE&GILBERT FOUNDATIO WSY INITIAL 54844 [facility] 1 MEDICAL RYA CARE/DAY SERV 30 [place] [address] SURESH PRINCE INFUSION 1 CO CO HYDRATION [facility] INITIAL 31 MIN-[address] [place] [address] [facility] HEAD/BRAI 1 FLOWER N W/[place] [address] [facility] CERVICAL 1 FLOWER SPINE W/O RADIOLOGY CONTRAST ASSOCIAT MATERIAL ECG 53788 [place] DMITRY C ROUTINE 1 MEDICAL ECG SERV W/LEAST FOUNDATIO 12 LDS I&R ONLY COLLECTIO 34994 SURESH PRINCE N VENOUS 1 CO CO BLOOD [facility] [place] [address] TITI ALHAJERI ANGIOGRAP 1 MEDICAL ABD HY NECK SERV W/CONTRAS FOUNDATIO T/[place] [address] [facility] MAXILLOFA 1 FLOWER CIAL W/O RADIOLOGY CONTRAST ASSOCIAT MATERIAL MRI 86783 [place] [facility] SPINAL 1 [facility] CERVICAL W/O CONTRAST [place] LUMBAR 93685 [place] NICKELS SPINE 1 MEDICAL TIANNA W/O SERV CONTRAST FOUNDATIO MATERIAL BLOOD 37143 SURESH PRINCE COUNT 1 CO CO COMPLETE [facility] AUTO&[place] W[place] [address] SURESH PRINCE INFUSION 1 CO CO THERAPY/P HOSPITAL HOSPITAL ROPHYLAXI S /DX 1ST [place] [address] [place] [address] [place] NICKELS THORACIC 1 MEDICAL TIANNA SPINE W/O SERV CONTRAST FOUNDATIO MATERIAL BLOOD 00868 SURESH PRINCE COUNT 1 [facility] MCRSCP W/MNL DIFRNTL WBC COUNT THER 26281 SURESH PRINCE PROPH/DX 1 [facility] NJX IV HOSPITAL HOSPITAL PUSH SINGLE/1S T SBST/DRUG COMPREHEN 36590 SURESH PRINCE SIVE 1 [facility] METABOLIC [facility] PANEL COMPREHEN 35880 BOJOSIE LEONEON SIVE 1 [facility] [place] [address] SULEMAON SULEMAON INFUSION 1 [facility] THERAPY/P HOSPITAL HOSPITAL ROPHYLAXI S /DX 1ST TO 1 HR THERAPEUT 18232 SHAUN LEONEON IC 1 [facility] INJECTION [facility] IV PUSH EACH NEW DRUG BLOOD 30906 SULE[facility]ON SULEMAON COUNT 1 [facility] HOSPITAL AUTO&[place] [address] SULE[facility] SULEMAON TROPONIN 1 [facility] FARTUN URNLS DIP 01163 BONAVJOTON [place] 1 [facility] STICK/TAB HOSPITAL HOSPITAL LET REAGENT AUTO MICROSCOP Y RADIOLOGI 34588 SULEMAON SULEMAON C EXAM 1 [facility] CHEST 2 [facility] VIEWS FRONTAL&L ATERAL DEMO&/GLENNY 83774 SULEMAON SULEMAON L OF PT 1 [facility] UTILIZ [facility] AERSL GEN/NEB/I NHLR/IP ECG 93181 [place] ROUTINE 1 [facility] W/LEAST 12 LDS TRCG ONLY W/O I&R CREATINE 74647 SULE[facility]ON SULEMAON KINASE 1 [facility] TOTAL [facility] COLLECTIO 16153 [place] SULEMAON N VENOUS 1 [facility] VENIPUNCT URE ECG 23796 MOOKIE DICKINSON ROUTINE 1 EMERGENCY ECG SERVICES W/LEAST 12 LDS I&R ONLY CREATINE 61715 [facility] DUNN KINASE MB 1 [facility] FRACTION [facility] [place] [place] [address] SHAUN DUNN INFUSION 1 [facility] HYDRATION [facility] EACH ADDITIONA L HOUR CT THORAX 14332 CNTR[place] JAMIE MAT W/O & 1 RADIOLOGY W/CONTRAS T MATERIAL LOCM Q9967 SHAUN DUNN 300-399 1 [facility] MG/ML [facility] IODINE CONCENTRA TION PER ML THERAPEUT 46126 VILLAFLOR VILLAFLOR IC 0 OSI OSI PROPHYLAC TIC/DX INJECTION SUBQ/IM THERAPEUT 77690 VILLAFLOR VILLAFLOR IC 0 OSI OSI PROPHYLAC TIC/DX INJECTION SUBQ/IM INJECTION J3420 VILLAFLOR VILLAFLOR VIT B-12 0 OSI OSI CYANOCOBA KAREN TO 1000 MCG ADMINISTR G0008 VILLAFLOR VILLAFLOR ATION OF 0 OSI OSI INFLUENZA VIRUS VACCINE IIV3 10173 VILLAFLOR VILLAFLOR VACCINE 0 OSI OSI SPLIT VIRUS 0.5 ML DOSAGE IM USE LIPID 86056 SURESH PRINCE PANEL 0 CO CO [facility] HEPATIC 18078 SURESH PRINCE FUNCTION 0 CO CO PANEL [facility] COLLECTIO 14414 SURESH PRINCE N VENOUS 0 CO CO BLOOD [facility] [place] [address] SURESH PRINCE THYROID 0 CO CO STIMULATI [facility] [place] [address] SURESH PRINCE FREE 0 CO CO THYROXINE [facility] CT THORAX 21385 SHAUN DUNN W/O 0 [facility] CONTRAST [facility] HOSPITAL MATERIAL INJECTION J3420 VILLAFLOR VILLAFLOR VIT B-12 0 OSI OSI CYANOCOBA KAREN TO 1000 MCG INJECTION 89257 CARDIOLOG SAVANNAH CARDIAC 0 Y ANT CATHJ L ASSOCIATE VENTR/L S OF [place] ATR ANGIOGRAP H L HRT 18208 CARDIOLOG SAVANNAH CATHETERI 0 Y ANT ZATION ASSOCIATE RETROGRAD [place] [address] CARDIOLOG SAVANNAH C-CATHJ 0 Y ANT F/SLCTV C ASSOCIATE ANGRPH S OF [place] I SI&R 80829 CARDIOLOG SAVANNAH F/NJX PX 0 Y ANT DURING ASSOCIATE C-CATHJ S OF [place] VENTR&/AT R ANGRPH I SI&R 52285 CARDIOLOG SAVANNAH F/NJX PX 0 Y ANT DURING ASSOCIATE C-CATHJ S OF [place] PULM&/OR SELECT INJECTION J1030 VILLAFLOR VILLAFLOR 0 OSI OSI METHYLPRE DNISOLONE ACETATE 40 MG BASIC 30879 SURESH PRINCE METABOLIC 0 CO [facility] CALCIUM TOTAL BLOOD 96421 SURESH PRINCE COUNT 0 CO [facility] MCRSCP W/MNL DIFRNTL WBC COUNT COLLECTIO 90450 SURESH PRINCE N VENOUS 0 [facility] VENIPUNCT URE BLOOD 43543 SURESH PRINCE COUNT 0 CO [facility] AUTO&AUTO DIFRNTL WBC ECG 50991 BRONSON HARDING HARDING BRONSON ROUTINE 0 MD ECG CONSULTIN W/LEAST G SRV 12 LDS W/I&R ECG 35690 BRONSON HARDING HARDING BRONSON ROUTINE 0 MD ECG CONSULTIN W/LEAST G SRV 12 LDS W/I&R POLYSOM 77405 BRONSON HARDING HARDING BRONSON 6/>YRS 0 MD SLEEP 4/> CONSULTIN ADDL G SRV NAY ATTND POLYSOM 59817 [place] 6/>YRS 0 COMMUNITY [facility] SLEEP 4/> [facility] ADDL NAY ATTND MYOCARDIA 37720 BRONSON HARDING HARDING, L SPECT 0 MD PANCHITO Treviño MULTIPLE CONSULTIN STUDIES G SRV PSC INJECTION J2785 BRONSON HARDING HARDING, 0 MD PANCHITO Treviño REGADENOS CONSULTIN ON 0.1 MG G SRV PSC CV STRS 31802 BRONSON HARDING HARDING, TST 0 MD PANCHITO Treviño XERS&/OR CONSULTIN RX CONT G SRV PSC ECG W/SI&R TECHNETIU A9500 BRONSON HARDING HARDING, M TC-99M 0 MD PANCHITO Treviño SESTAMIBI CONSULTIN DX [place] [address] [facility] REBOLLEDOGENERAL [facility] HEAD/BRAI 0 [facility] N W/O & HOSPITAL HOSPITAL W/CONTRAS T MATERIAL CREATININ 44554 [facility] E BLOOD 0 [facility] COLLECTIO 85265 [facility] N VENOUS 0 [facility] VENIPUNCT URE ECG 86548 BRONSON HARDING HARDING, ROUTINE 0 MD PANCHITO Treviño ECG CONSULTIN W/LEAST G SRV PSC 12 LDS I&[place] [address] [facility] UREA 0 [facility] QUANTITAT FARTUN CT THORAX 94427 [facility] 0 [facility] W/TRISTAR [facility] T MATERIAL LOCM Q9967 [facility] [phone] 0 [facility] MG/ML [facility] IODINE CONCENTRA TION PER ML ECG 66395 BRONSON HARDING HARDING BRONSON ROUTINE 0 MD ECG CONSULTIN W/LEAST G SRV 12 LDS W/I&R ECHO 44587 BRONSON HARDING HARDING BRONSON TTHRC R-T 0 2D CONSULTIN W/WOM-MOD G SRV E COMPL SPEC&COLR D RADIOLOGI 75492 [place] EVELIO EXAM 0 VLADIMIR S CHEST 2 RADIOLOGY VIEWS FRONTAL&L ASSOCIATE ATERAL S [facility] CT THORAX 76832 [place] FRASER, W/O 0 VLADIMIR S CONTRAST RADIOLOGY MATERIAL ASSOCIATE S [facility] 3D 48806 [facility], RENDERING 0 VLADIMIR S W/INTERP RADIOLOGY & POSTPROCE ASSOCIATE S PSC SUPERVISI ON RADIOLOGI 92014 [place] EVELIO EXAM 0 VLADIMIR S CHEST 2 RADIOLOGY VIEWS FRONTAL&L ASSOCIATE ATERAL S PSC RADIOLOGI 50686 [facility] EXAM 0 EIDER, CHEST 2 RADIOLOGY STAS VIEWS K FRONTAL&L ASSOCIATE ATERAL S PSC RADIOLOGI 87781 [facility] C EXAM 0 [place], CHEST 2 RADIOLOGY STAS VIEWS K FRONTAL&L ASSOCIATE ATERAL S PSC RADIOLOGI 93108 [place] Shen MATSON EXAM 0 FABRICE C CHEST 2 RADIOLOGY VIEWS FRONTAL&L ASSOCIATE ATERAL S PSC RADIOLOGI 13671 [place] DANO Gotti EXAM 0 JESSI CHEST 2 RADIOLOGY VIEWS ASSOCIAT FRONTAL&L ATERAL OBSERVATI 63398 [facility] BOWMAN, ON CARE 0 INPATIENT JOAQUINA H DISCHARGE MEDICINE ASSOC MANAGEMEN T INITIAL 94064 [facility] BOWMAN, OBSERVATI 0 INPATIENT JOAQUINA H ON MEDICINE CARE/DAY ASSOC 50 MINUTES RADIOLOGI 73142 [facility] Shen HUIZAR 0 RADIOLOGY SOURAV G EXAMINATI ON CHEST SINGLE VIEW FRONTAL RADIOLOGI 98746 [place] Shen MATSON EXAM 0 FABRICE Gotti CHEST 2 RADIOLOGY VIEWS FRONTAL&L ASSOCIATE ATERAL S PSC RADIOLOGI 93921 MARTINSDALEShen MARTÍNEZ 0 FABRICE Gotti EXAMINATI RADIOLOGY ON CHEST SINGLE ASSOCIATE VIEW S PSC FRONTAL MRI 89881 [facility] SPINAL [address] [place] [address] THORACIC W/O CONTRAST MATRL MRI [address] CERVICAL W/[place] [address] [place] CLEMONS, CERVICAL 9 RADIOLOGY SONJA A SPINE W/O CONTRAST MATERIAL BLOOD 39109 LAB AMANDA LAB AMANDA COUNT 9 AMERIC AMERIC COMPLETE HOLDING HOLDING AUTO&AUTO DIFRNTL WBC COLLECTIO 18422 LAB AMANDA LAB AMANDA N VENOUS 9 AMERIC AMERIC BLOOD [place] [address] LAB AMANDA LAB AMANDA GLUTAMYLT 9 AMERIC AMERIC RASE HOLDING HOLDING GAMMA TRANSFERA 34320 LAB AMANDA LAB AMANDA SE 9 AMERIC AMERIC ASPARTATE HOLDING HOLDING AMINO AST SGOT TRANSFERA 46315 LAB AMANDA LAB AMANDA SE 9 AMERIC AMERIC ALANINE HOLDING [place] [address] LAB AMANDA LAB AMANDA PHOSPHATA 9 AMERIC AMERIC SE HOLDING HOLDING ALKALINE BASIC 03967 LAB AMANDA LAB AMANDA METABOLIC 9 AMERIC AMERIC PANEL HOLDING HOLDING CALCIUM TOTAL RADEX ABD 52389 MARTINSDALEEVANGELISTA FRASER, COMPL 9 VLADIMIR S AQT ABD RADIOLOGY W/S/E/D VIEWS 1 ASSOCIATE VIEW S PSC RADIOLOGI 95290 AVELEVANGELISTA EVELIO, C EXAM 9 VLADIMIR S CHEST 2 RADIOLOGY VIEWS FRONTAL&L ASSOCIATE ATERAL [place] ABD 13083 [place] YARELI, COMPL 9 RADIOLOGY SOURAV G AQT ABD W/S/E/D VIEWS 1 [facility] [address] [place] FLAKO, DISCHARGE 9 [facility] DAY [facility] MIN/< SBSQ 70658 [facility] 9 [facility] CARE/DAY 35 MINUTES INITIAL 02948 [place] [facility] 9 [facility] CARE/DAY [address] [facility] W/O 9 [place], CONTRAST RADIOLOGY STAS MATERIAL K ASSOCIATE S [facility] RADEX ABD [address]60 [facility] COMPL 9 [place], AQT ABD RADIOLOGY TSAS W/S/E/D K VIEWS 1 ASSOCIATE VIEW [place] [address] [facility] ABDOMEN 9 E[place], W/O RADIOLOGY STAS CONTRAST K MATERIAL ASSOCIATE S [facility] ECG 86345 [facility] ROUTINE 9 [facility] W/LEAST 12 LDS TRCG ONLY W/O I&R ANES 16232 TITI OLIVAREZ, UPPER GI 9 ANESTHESI ITZ ENDOSCOPY A GROUP PROXIMAL PSC TO DUODENUM EGD 57273 WIGNAKUMA WIGNAKUMA TRANSORAL 9 R, R, CONTROL VELUPILLA VELUPILLA BLEEDING I I ANY METHOD OBSERVATI 62736 ESSENCE BOWMAN, ON CARE 9 INPATIENT JOAQUINA H DISCHARGE MEDICINE ASSOC [facility] G0378 [facility] DUNN OBSERVATI 9 [facility]OSPITAL SERVICE PER HOUR THERAPEUT 84757 [facility] IC 9 [facility] IV PUSH EACH NEW DRUG THER 08008 [facility] PROPH/DX 9 [facility] NJX IV HOSPITAL HOSPITAL PUSH SINGLE/1S T SBST/DRUG PROTHROMB 76171 SHAUN DUNN IN TIME 9 [facility] BLOOD 47069 WHEELER SULEMA COUNT 9 [facility] MCRSCP W/MNL DIFRNTL WBC COUNT INITIAL 12766 DAVID NAYLOR 9 INPATIENT JOAQUINA H ON MEDICINE CARE/DAY ASSOC 70 MINUTES COMPREHEN 76271 WHEELER SHAUN SIVE 9 [facility] PANEL INJECTION J2765 WHEELER [address] [facility] AMIDE HCL UP TO 10 [place] [address] [facility] LIPASE [address] [place] [address] [place] [address] CNTRL TITI JAIRON, ABDOMEN 9 RADIOLOGY MALVIN D W/CONTRAS T MATERIAL CREATINE 53704 WHEELER [facility] KINASE [address] [place] [address] HOSPITAL RADIOLOGI 22978 CNTRL TITI TUBBSICK, C EXAM 9 RADIOLOGY CHELSEA D CHEST 2 VIEWS FRONTAL&[place] [address] WHEELER [facility] TROPONIN 9 [facility] FARTUN CREATINE 24480 WHEELER [facility] KINASE MB 9 [facility] HOSPITAL ONLY CT PELVIS [address] W/[facility] [place] [address] WHEELER [facility] AMYLASE [address] [place] [address] [place] [address] WHEELER [facility] INFUSION [address] [place] [address] HOSPITAL EACH ADDITIONA L HOUR COLLECTIO 72788 [facility]EL[facility] N VENOUS 9 [facility] VENIPUNCT URE BLOOD 86553 WHEELER SHAUN COUNT [address] [place] [address] HOSPITAL AUTOMATED HI OSM Q9963 [facility] CONTRST [address] [place] [address] HOSPITAL [phone] MG/ML IODINE CONC ML RADEX ABD 00410 [facility] COM[facility] 9 [facility], AQT ABD RADIOLOGY STAS W/S/E/D K VIEWS 1 ASSOCIATE VIEW CH S PSC RADIOLOGI 54954 [facility] C EXAM 9 [place], CHEST 2 RADIOLOGY STAS VIEWS K FRONTAL&L ASSOCIATE ATERAL S PSC Encounters Encounter Start End Date Code Location Performer Type Date EMERGENCY 31506 [facility] 7 7 [facility] DEPARTMEN INC T VISIT MODERATE SEVERITY HOSPITAL [facility] 7 7 [facility] OUTPATIEN INC T EMERGENCY 28314 EDDIE KAPLANUSC DEPT 7 7 PHYSICIAN VISIT S, [facility] HIGH SEVERITY& THREAT FUNJ OFFICE 84918 OMAR WATSON OUTPATIEN 7 7 DEDRA MAXWELL T VISIT MD,[facility] 25 MINUTES OFFICE 75809 OMAR NELSON OUTPATIEN 7 7 Yunier MAXWELL VISIT ,[facility] 25 MINUTES OFFICE 86055 OMAR WATSON OUTPATIEN 7 7 DEDRA MAXWELL T VISIT ,[facility] 25 MINUTES OFFICE 30176 OMAR OSORIO OUTPATIEN 6 6 FLOWER MAXWELL MD,[facility] MINUTES EMERGENCY 90058 [facility] 6 6 [facility] VISIT MODERATE SEVERITY [facility]OSPITAL [facility] - 6 6 [facility] OUTPATIEN INC T EMERGENCY 40908 EDDIE LEDESMA 6 6 PHYSICIAN U [facility] S, [facility] T VISIT HIGH/URGE NT SEVERITY EMERGENCY 49366 EDDIE LEDESMA 6 6 PHYSICIAN U [facility] S, [facility] T VISIT HIGH/URGE NT SEVERITY EMERGENCY 37278 [facility] 6 6 [facility] T [facility]ISIT LOW/MODER SEVERITY HOSPITAL [facility] 6 6 [facility] OUTPATIEN INC T EMERGENCY 58435 EDDIE JOHNSON 6 6 PHYSICIAN RADHA [facility] S, [facility] T VISIT HIGH/URGE NT SEVERITY EMERGENCY 12736 [facility] 6 6 [facility] T VISIT LIMITED/M INOR PROB HOSPITAL [facility] - 6 6 [facility] OUTPATIEN [facility] T OFF[facility] 29244 TITI NICKL III OUTPATIEN 6 6 MEDICAL SAMANTHA T VISIT SERV 25 FOUNDATIO MINUTES N HOSPITAL [facility] - 6 6 [facility] OUTPATIEN INC T HOSPITAL [facility] - OTHER 6 6 MEM [facility]OS[facility] INC EMERGENCY 67836 [facility] 6 6 [facility] T VISIT LIMITED/M INOR PROB HOSPITAL [facility] - 6 6 [facility] OUTPATIEN [facility] T EMERGENCY 08778 EDDIE JOHNSON 6 6 PHYSICIAN RADHA NAVA S, [facility] T VISIT MODERATE SEVERITY HOSPITAL [facility] - 6 6 [facility] OUTPATIEN [facility] T OFFICE 74418 [facility]URKE OUTPATIEN 6 6 PHYSICIAN GLORIA T VISIT S GROUP 25 MINUTES HOSPITAL [facility] - OTHER 6 6 [facility] INC OFFICE 10721 [facility] OUTPATIEN 6 6 PHYSICIAN GLORIA T VISIT S GROUP 15 MINUTES EMERGENCY 79669 TITI OMARALI GALI 6 6 MEDICAL DEPARTMEN SERV T VISIT FOUNDATIO MODERATE N SEVERITY EMERGENCY 34653 [facility] 6 6 [facility] T VISIT LOW/MODER SEVERITY HOSPITAL [facility] - 6 6 [facility] OUTPATIEN INC T EMERGENCY 78751 EDDIE GILLESPIE 6 6 PHYSICIAN DEPARTMEN S, [facility] VIS[facility] MODERATE SEVERITY OFFICE 84016 JULIO WALTON, OUTPATIEN 6 6 JR. MONTELONGO T NEW 30 ORTHOPAED MINUTES [facility] SPORT OFFICE 91989 [facility]KE OUTPATIEN 6 6 PHYSICIAN GLORIA T VISIT S GROUP 15 MINUTES HOSPITAL [facility] - OTHER 6 6 [facility] OFF[facility] 74303 [facility] 6 6 PHYSICIAN GLORIA T VISIT S GROUP 25 MINUTES HOSPITAL [facility] - OTHER 6 6 [facility] 6 6 Y INPATIENT [facility] 6 Y INPATIENT HOSPITAL EMERGENCY 49248 [facility] DEPT 6 6 [facility]IT [facility] HIGH SEVERITY& THREAT [facility] - 6 6 [facility] OUTPATIEN [facility] OFFICE 92661 [facility] OUTPATIEN 6 6 PHYSICIAN GLORIA T VISIT S GROUP 15 MINUTES [facility] 6 6 [facility] EMERGENCY 86899 EDDIE LEDESMA DEPT 6 6 PHYSICIAN U JAKE VISIT S, [facility] HIGH SEVERITY& THREAT [facility] OTHER 6 6 [facility] OTHER 6 6 [facility] - 6 6 [facility] OUTPATIEN [facility] - 6 6 [facility] OTHER 6 6 [facility] OFF[facility] 33414 [facility] OUTPATIEN 5 5 PHYSICIAN GLORIA T VISIT S GROUP 15 MINUTES HOSP[facility] - 5 5 [facility] OUTPATIEN [facility] - 5 5 [facility] OUTPATIEN [facility] OFFICE 50349 [facility] [address], [place] [address] 4 [facility] OFFICE 89654 [facility] 4 4 [facility] T VISIT RURAL 15 HEALTH MINUTES CLINIC, [facility] 4 4 [facility] Emergency CARLOS Briceño MD (ER) 3 15:27 3 17:16 [facility] CLINIC, [facility] 3 3 [facility] OFFICE 92304 [facility] 3 3 [facility] T VISIT RURAL 15 HEALTH MINUTES CL[facility]IC, [facility] RURAL 3 3 [facility] OFFICE 66148 [facility] 3 3 [facility] T [facility]ISIT HEALTH 15 CLINIC MINUTES CRITICAL [facility], ACCESS [address] [place] [address] OFFICE 69714 [facility] 3 3 [facility] SLEEP ELIAZAR T VISIT AND [facility]HA 15 MINUTES HOSPITAL UNIVERSIT - 3 3 [facility] CLINIC, [facility] RURAL 3 3 [facility] OFFICE 34317 [facility] 3 3 [facility] T VISIT HEALTH 15 CLINIC MINUTES EMERGENCY 96159 TITI ANNE 3 3 MEDICAL SET DEPARTMEN SERV T VISIT FOUNDATIO HIGH/URGE NT SEVERITY [facility] - 3 3 [facility] - 3 3 [facility] T OFFICE 17179 [facility] 3 3 [facility] T [facility]ISIT HEALTH 15 CLINIC MINUTES CLINIC, [facility] 3 3 [facility] CL[facility], [facility] RURAL 2 2 [facility] OFFICE 99075 [facility] 2 2 [facility] T VISIT HEALTH 15 CLINIC MINUTES OFFICE 15388 [facility] 2 2 [facility] SLEEP ELIAZAR T VISIT AND REHA 15 MINUTES OFFICE 71329 [facility]UCERO OUTPATIEN 2 2 ULAR & ANT T VISIT THORACIC 15 ASS MINUTES CRITICAL [facility], ACCESS 2 2 [facility] OFFICE 26900 [facility] OUTPATIEN 2 2 LT SLEEP ELIAZAR T VISIT AND REHA 15 MINUTES EMERGENCY 32762 [facility], 2 2 ACQUISITIONS LIBRARIAN [facility] SURES[facility] T VISIT CO HOS MODERATE SEVERITY CRITICAL [facility] ACCESS 2 2 [facility] OFFICE 52506 [facility] 2 2 OSI OSI T VISIT 15 MINUTES OFFICE 51892 [facility] 1 1 [facility] SLEEP ELIAZAR T NEW 30 AND REHA MINUTES OFFICE 34862 [facility] OUT[facility] 1 1 OSI OSI T VISIT 25 MINUTES CRITICAL [facility] ACCESS 1 1 [facility] UNIVERSIT - 1 1 [facility] T OFFICE [address]34 [place] [facility] OUTPATIEN 1 1 MEDICAL T NEW 30 SERV MINUTES FOUNDATIO OFFICE 58732 [facility] OUT[facility] 1 1 OSI OSI T VISIT 40 MINUTES CRITICAL [facility] ACCESS 1 1 [facility] SURES[facility] - 1 1 [facility] [facility] T EMERGENCY 17757 [facility] DEPT 1 1 [facility] HIGH SEVERITY& THREAT FUNCJ EMERGENCY 23844 [facility] 1 1 [facility] T VISIT LIMITED/M INOR PROB CRITICAL [facility] ACCESS 1 1 [facility] EMERGENCY 03101 MOOKIE LEROY BAB DEPT 1 1 EMERGENCY VISIT SERVICES HIGH SEVERITY& THREAT [facility] T EMERGENCY 75670 [facility] 1 1 [facility] T VISIT HIGH/URGE NT SEVERITY OFFICE 10801 CARDIOVAS LUCERO OUTPATIEN 1 1 ULAR & ANT T VISIT THORACIC 15 ASS [facility] - 1 1 [facility] T [facility]ICE 68409 [facility] 0 0 OSI OSI T VISIT 15 MINUTES OFFICE 22199 MELENDEZ- MELENDEZ- OUTPATIEN 0 0 CROW CROW T NEW 45 GEOVANNY GEOVANNY MINUTES CRITICAL [facility] ACCESS 0 0 [facility] CRITICAL SURESH ACCESS 0 0 [facility] OFFICE 31086 CARDIOVAS LUCERO OUTPATIEN 0 0 ULAR & ANT T NEW 60 THORACIC MINUTES [facility] - 0 0 [facility] T CRITICAL SURESH ACCESS 0 0 [facility] OFFICE 87853 [facility] OUTPATIEN 0 0 MD T VISIT CONSULTIN 15 G SRV MINUTES OFFICE 85626 [facility] OUTPATIEN 0 0 MD T VISIT CONSULTIN 15 G SRV MINUTES [facility] - 0 0 [facility] T OFFICE 87855 [facility]ILL[facility]OR OUTPATIEN 0 0 , JAG M JAG M T VISIT 15 MINUTES OFFICE 34526 [facility]ILL[facility] OUTPATIEN 0 0 , JAG M , JAG M T VISIT 15 MINUTES OFFICE 49795 [facility] MD PANCHITO Treviño T VISIT CONSULTIN 15 G SRV PSC MINUTES [facility]OSP[facility] 0 [facility] T OFFICE 19645 [facility] OUTPATIEN 0 0 MD T VISIT CONSULTIN 25 G SRV MINUTES HOSPITAL UNIVERSIT - 9 9 [facility] T EMERGENCY 79365 [facility] 9 9 [facility] T VISIT LOW/MODER SEVERITY EMERGENCY 04654 TITI ITJERINA, 9 9 [facility] T VISIT FOUNDATIO MODERATE SEVERITY EMERGENCY 53647 [facility] 9 9 [facility] T VISIT LOW/MODER SEVERITY CRITICAL [facility] ACCESS 9 9 [facility] EMERGENCY 90870 [facility] ARRIOLA, 9 9 [facility] T VISIT MODERATE SEVERITY OFFICE 15932 [facility] 9 ELEANOR MAXWELL T VISIT 5 [facility] MINUTES . HOSPITAL WHEELER - 9 9 [facility] T OFF[facility] 63545 [facility] 9 9 MARCIO MAXWELL NEW 30 M.D.[facility] MINUTES . EMERGENCY 31258 [facility] ROHINI, DEPT 9 9 DM GUY VISIT EMERGENCY A [facility] [employer] [facility] SEVERITY& THREAT FUN [facility] 06248 [facility] 9 [facility] T VISIT HIGH/URGE NT SEVERITY [facility] 9 9 [facility] T EMERGENCY 93152 MELBA TSAI, 9 9 [facility] T VISIT HIGH/URGE NT SEVERITY
--- OUTSIDE RECORDS SUMMARY | 2017-03-07 13:51 | External Medical Summary Rpt | CCD ---
Author Author , MARIE Organization MARIE Address Unknown Phone [email or web address] Care Team Providers Care Housing Court Judge Name Role Phone AHMED ADN, AHMED ADN Unavailable Unavailable AHMED, GUY A, Unavailable Unavailable AHMED, GUY A [employer], Unavailable Unavailable [employer] AIKAT SHA, AIKAT SHA Unavailable Unavailable ALHAJERI ABD, Unavailable Unavailable ALHAJERI ABD ALLRAN JR HANK, ALLRAN Unavailable Unavailable JR HANK ARMENIAN AMBULETT & Unavailable Unavailable AMBULANC, ARMENIAN AMBULETT & AMBULANC ARMENIAN AMBULETT & Unavailable Unavailable AMBULANC, ARM[facility] AM[facility]TT & AMBULANC DERIK MARAVILLA Unavailable Unavailable OMAR ROSENBERG Unavailable Unavailable OMAR MAXWELL, Unavailable Unavailable ,PSC, OMAR MAXWELL MD,PSC SKY HINSON Unavailable Unavailable JAKE BENSALEM DOMINIK, Unavailable Unavailable BENSALEM DOMINIK HAMILTON, HAMILTON Unavailable Unavailable HAMILTON ALL, HAMILTON ALL Unavailable Unavailable [facility] Unavailable Unavailable [facility] [place] Unavailable Unavailable [facility]available Unavailable SERVICE, [facility] Unavailable Unavailable [...] YARELI RHO, YARELI Unavailable Unavailable RHO YARELI, SOURAV G, Unavailable Unavailable YARELI, SOURAV G SPENCERCHGISSEL, Unavailable Unavailable STAS Chance, STAS HIDALGO BARRY D, Unavailable Unavailable MALVIN DE LA O JASON A, Unavailable Unavailable CLEMONSSONJA MCCLAIN [facility] Unavailable Unavailable INC, [facility] Unavailable Unavailable HOSPITAL P, [facility] EVELIO CRENSHAW, FRASER Unavailable Unavailable FLOWER VLADIMIR FRASER S, Unavailable Unavailable VLADIMIR FRASER S [facility], Unavailable Unavailable [facility] MILES MCKENNA Unavailable Unavailable JOAQUINA BOWMAN, Unavailable Unavailable JOAQUINA BOWMAN HUBER JUL Unavailable Unavailable CHING ALEMAN, CHING Unavailable Unavailable ASH MITA II ELIAZAR, MITA Unavailable Unavailable II ELIAZAR MELENDEZ-CROW GEOVANNY, Unavailable Unavailable MELENDEZ-CROW GEOVANNY MELENDEZ-CROW GEOVANNY, Unavailable Unavailable MELENDEZ-CROW GEOVANNY [facility] Unavailable Unavailable CLINIC, [facility] Unavailable Unavailable IMAGING ASS, [facility] TORSTEN RADHA, TORSTEN RADHA [...] MD SAVANNAH ANT, SAVANNAH Unavailable Unavailable [facility] Unavailable Unavailable SERVICES, [facility] Unavailable Unavailable ASSOCIAT, [facility] MERHAR GAR, MERHAR Unavailable Unavailable [facility] Unavailable Unavailable [facility], [facility] ITZ OLIVAREZ, Unavailable Unavailable ITZ OLIVAREZ GRAHAM MELISSA, GRAHAM MELISSA Unavailable Unavailable [facility] Unavailable Unavailable [facility], [facility], Unavailable Unavailable [facility] Unavailable Unavailable AMBULANCE SE, [facility] Unavailable Unavailable AMBULANCE SE, [facility] Unavailable Unavailable HEALTH, [facility] NICKELS TIANNA, NICKELS Unavailable [...] Unavailable PH[facility]ICIAN [facility], [facility] Unavailable Unavailable [facility], Unavailable Unavailable [facility], CLARKE Unavailable Unavailable [facility]CO TAMNILEN, FERMIN, Unavailable Unavailable TAMJOSÉ MIGUEL ALBERTOET BORIS VERONIKA, BORIS Unavailable Unavailable VERONIKA MATTHEWS LUIS, MATTHEWS LUIS Unavailable Unavailable [facility] Unavailable Unavailable ASSIST, [facility], Unavailable Unavailable [facility] Unavailable [facility]available [facility], [facility] INTER VILLAFLOR OSI, Unavailable Unavailable VILLAFLOR OSI [...] I10 ESSENTIAL 10-29-2016 [facility] PRIMARY PHYSICIANS, HYPERTENSIO [facility] N K861 OTHER 10-29-2016 [place] CHRONIC [facility] PANCREATITI IMAGING ASS S R1032 LEFT LOWER 10-29-2016 [facility] QUADRANT PHYSICIANS, PAIN PLL R109 UNSPECIFIED 10-29-2016 [place] ABDOMINAL [facility]ICAL PAIN IMAGING ASS 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 ,PSC NEC [id number] FIELD GEOLOGIST 07-30-2016 OMAR CURRENT USE ALISSA OF OPIATE ,PSC ANALGESIC M542 CERVICALGIA 04-01-2016 OMAR MAXWELL MD,PSC M545 LOW BACK 04-01-2016 OMAR PAIN MD ALISSA,PSC M6250 MUSCLE 04-01-2016 OMAR WASTING & ALISSA, ATROPHY KENJI LOPEZ,PSC UNSPECIFIED SITE J189 PNEUMONIA 03-31-2016 [facility] UNSPECIFIED PHYSICIANS, ORGANISM [facility] J441 CHRONIC 03-31-2016 [facility] OBSTRUCTIVE PHYSICIANS, PULMONARY [facility] DZ W/EXACERBAT ION R05 COUGH 03-31-2016 [facility] R079 CHEST PAIN 03-31-2016 [place] UNSPECIFIED MEDICAL IMAGING ASS Z720 TOBACCO USE 03-31-2016 [facility] G894 CHRONIC 03-25-2016 [facility] PAIN [facility] SYNDROME INC I2510 ASHD YAVAPAI-APACHE 03-25-2016 [facility] CORONARY [facility] ARTERY W/O INC ANGINA PECTORIS J449 CHRONIC 03-25-2016 [facility] OBSTRUCTIVE [facility] PULMONARY INC DISEASE UNS M549 DORSALGIA 03-14-2016 [facility] UNSPECIFIED PHYSICIANS, [facility] M60700 PERSONAL 03-14-2016 [facility] HISTORY OF [facility] NICOTINE INC DEPENDENCE K8590 ACUTE 02-21-2016 [facility] MEDICAL PANCREATITI SERV S WO FOUNDATION NECROSIS/IN FECTION UNSPEC I714 ABDOMINAL 02-01-2016 [place] AORTIC MEDICAL ANEURYSM IMAGING ASS WITHOUT RUPTURE K838 OTHER 02-01-2016 [place] SPECIFIED MEDICAL DISEASES OF IMAGING ASS BILIARY TRACT K868 OTHER 02-01-2016 [place] SPECIFIED MEDICAL DISEASES OF IMAGING ASS PANCREAS S25541 ENCOUNTER 01-30-2016 [facility] FOR [facility] PREPROCEDUR INC AL LABORATORY EXAM G8929 OTHER 01-16-2016 [facility] CHRONIC PHYSICIANS PAIN GROUP M4694 UNS 01-16-2016 [facility] INFLAMMATOR PHYSICIANS Y GROUP SPONDYLOPAT HY THORACIC REGION M18838 OTHER LONG 01-16-2016 [facility] TERM [facility] CURRENT INC DRUG THERAPY L0390 CELLULITIS 01-08-2016 [facility] UNSPECIFIED PHYSICIANS GROUP M5090 CERVICAL 01-08-2016 [facility] DISC PHYSICIANS DISORDER GROUP UNS UNS CERVICAL REGION R1012 LEFT UPPER 10-22-2015 [facility] QUADRANT SERV PAIN FOUNDATION L25748 PAIN IN ARM 10-14-2015 [facility] UNSPECIFIED AMBULANCE SE R1010 UPPER 10-14-2015 [facility] ABDOMINAL [facility] PAIN INC UNSPECIFIED U618QUI COMP 10-14-2015 [facility] AMBULANCE CARE UNS SE INITIAL ENCNTR M4802 SPINAL 09-22-2015 [facility] STENOSIS PHYSICIANS CERVICAL GROUP REGION M9983 OTHER 09-11-2015 [facility] BIOMECHANIC PHYSICIANS AL LESIONS GROUP OF LUMBAR REGION K8050 CALCULUS BD 09-06-2015 [facility] W/O SERV CHOLANGITIS FOUNDATION /CHOLECYST W/O OBST K831 OBSTRUCTION 09-06-2015 [facility] MEDICAL OF BILE SERV DUCT FOUNDATION R188 OTHER 09-05-2015 [facility] ASCITES SERV FOUNDATION R740 NONSPECIFIC 09-05-2015 [facility] MEDICAL ELEVATION SERV LEVELS FOUNDATION TRANSAMINAS E & LDH K859 ACUTE 09-04-2015 [facility] N PHYSICIAN S SERVI UNSPECIFIED E785 HYPERLIPIDE 09-03-2015 [facility] UNSPECIFIED K567 ILEUS 09-03-2015 [facility] I259 CHRONIC 09-02-2015 [facility] MED[facility] ISCHEMIC SERV HEART FOUNDATION DISEASE UNSPECIFIED K8020 CALCULUS GB 09-02-2015 [facility] W/O PHYSICIANS, CHOLECYSTIT PLLC IS W/O OBSTRUCTION R7989 OTHER SPEC 09-02-2015 [place] ABNORMAL MEDICAL FINDINGS IMAGING ASS BLOOD CHEMISTRY I422 OTHER 08-18-2015 [facility] HYPERTROPHI [facility] HOS[facility] C INC CARDIOMYOPA THY M488X6 OTHER 08-18-2015 [facility] SPECIFIED PHYSICIANS SPONDYLOPAT GROUP HIES LUMBAR REGION E860 DEHYDRATION 08-04-2015 [facility] PHYSICIANS, PLLC R1033 PERIUMBILIC 08-04-2015 [place] AL PAIN MEDICAL IMAGING ASS R110 NAUSEA 08-04-2015 [facility] AMBULANCE SE R112 NAUSEA WITH 08-04-2015 [facility] VOMITING PHYSICIANS, UNSPECIFIED PLLC Z955 PRESENCE OF 08-04-2015 [facility] P IMPLANT & GRAFT Q52372 SPONDYLOSIS 06-30-2015 [place] W/O MEDICAL MYELOPATH/R IMAGING ASS ADICULOPATH Y LUMB RGN M5126 OT 06-30-2015 [place] INTERVERTEB MEDICAL RAL DISC IMAGING ASS DISPLACEMEN T LUMBAR RGN M546 PAIN IN 06-30-2015 [place] THORACIC MEDICAL SPINE IMAGING ASS R0989 OT SPEC SX 05-25-2015 [place] & SIGNS MEDICAL INVLV THE IMAGING ASS CIRC & RESP SYS M4692 UNS 05-03-2015 [facility] INFLAMMATOR PHYSICIANS Y GROUP SPONDYLOPAT HY CERVICAL REGION M5030 OT 05-03-2015 [facility] CERVICAL PHYSICIANS DISC GROUP DEGENERATIO N UNS CERV REGION M9981 OTHER 05-03-2015 [facility] BIOMECHANIC PHYSICIANS AL LESIONS GROUP OF CERVICAL REGION R9089 OT 05-03-2015 [facility] ABNORMAL PHYSICIANS FIND ON DX GROUP IMAGING [facility] NERV SYS M5032 [facility] CERV 04-21-2015 [place] DISC MEDICAL DEGENERATIO IMAGING ASS N MID-CERVICA L REGION 56134 BARRETTS 08-06-2013 [facility] PSC 64300 ATROPHIC 08-06-2013 NEW GASTRITIS [place] WITHOUT CLINIC PSC MENTION OF HEMORRHAGE 71075 ABDOMINAL 08-06-2013 [facility] PAIN, H UNSPECIFIED ANESTHESIA SITE PSC 496 CHRONIC 08-03-2013 [place] [facility] OBSTRUCTION ASSOCIAT NEC 10121 SOLITARY 08-03-2013 [place] PULMONARY RADIOLOGY NODULE ASSOCIAT 4414 ABDOMINAL 08-01-2013 [place] ANEURYSM RADIOLOGY WITHOUT ASSOCIAT MENTION OF RUPTURE V4579 OTHER 08-01-2013 [place] ACQUIRED RADIOLOGY ABSENCE OF ASSOCIAT ORGAN 14146 UNSPEC 07-21-2013 [facility] EPILEPSY PENDING SALE [facility] WITHOUT RURAL MENTION HEALTH INTRACT EPILEPSY 4619 ACUTE 07-21-2013 [facility] SINUSITIS, PENDING SALE TO [facility] UNSPECIFIED RURAL HEALTH 2724 OTHER AND 07-08-2013 [facility] UNSPECIFIED PENDING SALE TO [facility] RURAL HYPERLIPIDE HEALTH ANGEL 4011 ESSENTIAL 07-08-2013 [facility] HYPERTENSIO PENDING SALE TO [facility] N, BENIGN [facility] 38194 COR 07-08-2013 [facility] ATHEROSLERO PENDING SALE TO [facility] UNSPEC RURAL TYPE VESSEL HEALTH YAVAPAI-APACHE/LUPILLO T 92087 ACUT 07-06-2013 [facility] LAR INFARCT UNS CONSULTANTS SITE EPIS O CARE UNS 304.70 304.70 04-10-2013 [place] OPIOID/OTHE [facility] DEP-UNSPEC 304.71 304.71 04-10-2013 [place] OPIOID/OTHE [facility] DEP-CONTIN 305.00 305.00 04-10-2013 [place] [facility] C 780.39 780.39 04-10-2013 [place] OTHER [facility] 7862 COUGH 04-10-2013 [facility] 7842 SWELLING 03-09-2013 [place] MASS OR RADIOLOGY LUMP IN ASSOCIAT HEAD AND NECK 3384 CHRONIC 02-17-2013 [facility] PAIN PENDING SALE [facility] SYNDROME [facility] 7210 CERVICAL 02-17-2013 [facility] SPONDYLOSIS PENDING SALE [facility] WITHOUT [facility] FOR INCURABLES MYELOPATHY [facility] 7231 CERVICALGIA 02-17-2013 [facility] 74551 HYPERTROPHY 10-13-2012 [facility] PROSTATE HEALTH W/O UR OBST CLINIC & OTH LUTS 7804 DIZZINESS 10-13-2012 [facility] GIDDINESS CLINIC 84901 INSOMNIA 10-13-2012 [facility] UNSPECIFIED HEALTH CLINIC 7224 DEGENERATIO 09-24-2012 [facility] N OF H SLEEP AND CERVICAL REHA INTERVERTEB RAL DISC 7234 BRACHIAL 09-24-2012 [facility] NEURITIS OR H SLEEP AND REHA RADICULITIS NOS V5417 AFTERCARE 09-24-2012 [facility] HEALING SERV TRAUMATIC FOUNDATIO FRACTURE VERTEBRAE V5489 OTHER 09-24-2012 [facility] AFTERCARE E8889 UNSPECIFIED 09-22-2012 [facility] 4400 ATHEROSCLER 09-16-2012 [facility] OSIS OF SERV AORTA FOUNDATIO 59793 PATHOLOGIC 09-16-2012 [facility] FRACTURE OF SERV VERTEBRAE FOUNDATIO 03992 OTHER 09-16-2012 [facility] CONVULSIONS SERV FOUNDATIO 79703 CLOS FX 09-16-2012 [facility] VERTEBRA UNS LEVL W/O SP CRD INJURY 12011 CLOS FX C3 09-16-2012 [facility] VERTEBRA SERV W/O MENTION FOUNDATIO SP CRD INJURY 01498 SUBARACH 09-16-2012 [facility]ICAL HEMOR [facility] SERV INJR W/O FOUNDATIO OPN ICW UNS SOC 55037 SUBARACH 09-16-2012 [facility] INJR W/O OPN ICW NO LOC 9582 SEC&RECURRE 09-16-2012 ARMENIAN NT AMBULETT & HEMORRHAGE AMBULANC AN EARLY COMP TRAUMA V454 ARTHRODESIS 09-16-2012 [facility] 05795 OTH FORM 09-15-2012 [facility] EPILEPSY & HEALTH RECUR CLINIC SEIZUR NO INTRACT EPIL 38637 OTHER 09-15-2012 [place] DISEASES OF RADIOLOGY LUNG NOT ASSOCIAT ELSEWHERE CLASSIFIED 16529 SWELLING OF 09-15-2012 [place] LIMB RADIOLOGY ASSOCIAT 85120 ALTERED 09-15-2012 [facility] MENTAL HEALTH STATUS CLINIC 920 CONTUSION 09-15-2012 [place] OF FACE RADIOLOGY SCALP AND ASSOCIAT NECK EXCEPT EYE 7048 OTHER 05-21-2012 [facility] SPECIFIED HEALTH DISEASE OF CLINIC HAIR&HAIR FOLLICLES 6820 CELLULITIS 05-14-2012 [facility] AND ABSCESS HEALTH OF FACE CLINIC 2811 OTHER 12-09-2011 V[facility] VITAMIN B12 OSI DEFICIENCY ANEMIA 15838 OSTEOARTHRO 12-09-2011 [facility] S UNSPEC OSI WHETHER GEN/LOC UNSPEC SITE 42135 UNSPECIFIED 10-28-2011 [place] DISORDER RADIOLOGY OF SHOULDER ASSOCIAT JOINT 9057 LATE EFF 10-28-2011 [facility] SPRAIN&STRA ANIMAL BREEDER IN W/O [facility] MENTION HOS TENDON INJURY V4589 OTHER 10-28-2011 [facility], POSTSURGICA ANIMAL BREEDER L STATUS [facility] OTHER HOS 48091 SINOATRIAL 10-07-2011 [facility] NODE OSI DYSFUNCTION 19818 OSTEOARTHRO 07-29-2011 [facility] S UNSPEC OSI WHETHER GEN/LOC SHLDR REGION 11455 PRECORDIAL 03-26-[address] MD CONSULTING SRV 2768 HYPOPOTASSE 12-10-2010 CAROLYNE ANGEL OSI 586 UNSPECIFIED 12-10-2010 [facility] FAILURE V1551 PERSONAL 12-10-2010 OZ[facility] HISTORY OF OSI TRAUMATIC FRACTURE 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 58925 CLOS FX C5 11-30-2010 [facility] W/O MENTION SP CRD INJURY 7028 OTHER 11-21-2010 [facility] MEDICAL SPECIFIED SERV DERMATOSES FOUNDATIO 92484 CLOSED 11-12-2010 [facility] FRACTURE OF OSI HEAD OF RADIUS 7384 ACQUIRED 11-02-2010 [facility] MEDICAL SPONDYLOLIS SERV THESIS FOUNDATIO 01818 CLOS FX C6 11-02-2010 [facility] VERTEBRA PHYSICIANS W/O MENTION ASSIST SP CRD INJURY 4019 UNSPECIFIED 11-01-2010 [facility] HYPERTENSIO INTER N 4580 ORTHOSTATIC 11-01-2010 [facility] HYPOTENSION INTER E8869 OTH & UNS 11-01-[address] [facility] FALL ON INTER SAME LEVEL 7802 SYNCOPE AND 10-31-2010 [facility] COLLAPSE SERV FOUNDATIO 84270 OTH NONSPC 10-31-2010 [facility] MEDICAL ABN FINDNG SERV RAD&OTH EXM FOUNDATIO BODY STRUCTURE V7281 PRE-OPERATI 10-31-2010 [place] [facility] VE SERV CARDIOVASCU FOUNDATIO LAR EXAMINATION 2761 HYPOSMOLALI 10-30-2010 [facility] TY AND/OR HOSPITAL HYPONATREMI A 61302 SWELLING OR 10-30-2010 [place] MASS OF RADIOLOGY EYE ASSOCIAT 73953 OCCLUSION&S 10-30-2010 [facility] MEDICAL TENOS SERV CAROTID ART FOUNDATIO W/O MENTION INFARCT 14691 OCCLUSION&S 10-30-2010 [facility] MEDICAL TENOS VERT SERV ART W/O FOUNDATIO MENTION INFARCT 19547 OTHER 10-30-2010 [facility] MEDICAL DISEASES OF SERV NASAL FOUNDATIO CAVITY AND SINUSES 43609 DEGEN 10-30-2010 [facility] MEDICAL LUMBAR/LUMB SERV OSACRAL FOUNDATIO INTERVERTEB RAL DISC 7226 DEGENERATIO 10-30-2010 [facility] RAL DISC SITE UNSPEC 7230 SPINAL 10-30-2010 [facility] [place] STENOSIS IN RADIOLOGY CERVICAL REGION 75513 OTHER 10-30-2010 [facility] FAT[facility]UE 7840 HEADACHE 10-30-2010 [place] [facility] ASSOCIAT 79131 SHORTNESS 10-30-2010 [facility] 70695 URINARY 10-30-2010 [facility] 7937 NONSPC ABN 10-30-2010 [place] FINDNG RAD RADIOLOGY & OTH EXM ASSOCIAT MUSCULSKELT L SYS 9210 BLACK EYE, 10-30-2010 [place] NOT RADIOLOGY OTHERWISE ASSOCIAT SPECIFIED 96634 HEAD 10-30-2010 [place] INJURY, RADIOLOGY UNSPECIFIED ASSOCIAT 58412 INJURY OF 10-30-2010 [place] FACE AND RADIOLOGY NECK OTHER ASSOCIAT AND UNSPECIFIED 87561 OTHER 10-30-2010 [place] INJURY OF RADIOLOGY OTHER SITES ASSOCIAT OF TRUNK E8490 PLACE OF 10-30-2010 [facility] OCCURRENCE, HOSPITAL HOME E8888 OTHER FALL 10-30-2010 [facility] 7869 OTH 08-27-2010 [facility] SYMPTOMS HOSPITAL INVOLVING RESPIRATORY SYSTEM&CHES T V5869 LONG-TERM 08-27-2010 [facility] (CURRENT) HOSPITAL USE OF OTHER MEDICATIONS 4739 UNSPECIFIED 08-17-2010 [facility] 72398 HEMATURIA 08-17-2010 [facility] UNSPECIFIED EMERGENCY SERVICES 34220 CHEST PAIN 08-17-2010 [facility] [place] UNSPECIFIED RADIOLOGY 97309 PAINFUL 08-17-2010 [facility] RESPIRATION EMERGENCY SERVICES 7944 NONSPECIFIC 08-17-2010 [facility] HOSPITAL KIDNEY FUNCTION STUDY 7931 NONSPEC 07-09-2010 [facility] [place] FIND RAD RADIOLOGY OTH EXAM BODY STRUCT LUNG FIELD 9635 POISONING 04-19-2010 [facility] BY VITAMINS OSI NOT ELSEWHERE CLASSIFIED V0481 NEED 02-16-2010 [facility] PROPHYLACTI OSI C VACCINATION &INOCULATIO N FLU 35562 LOSS OF 02-14-2010 [facility] NKLIN GEOVANNY 92749 NAUSEA WITH 02-14-2010 [facility] VOMITING NKLIN GEOVANNY 03070 TRANSIENT 01-27-2010 [facility] 4139 OTHER AND 12-25-2009 CARDIOLOGY UNSPECIFIED ASSOCIATES ANGINA OF [place] 04711 SPONDYLOSIS 12-22-2009 [facility] UNSPEC OSI SITE W/O MENTION MYELOPATHY 2722 MIXED 12-20-2009 [facility] HYPERLIPIDE HOSPITAL ANGEL 3278 OTHER 12-07-2009 [facility] ANDRADE MD SLEEP CONSULTING DISORDERS SRV 69235 HYPERSOMNIA 12-07-2009 [facility] HARDING MD UNSPECIFIED CONSULTING SRV 23202 DYSFNCT 12-05-2009 [facility] W/SLEEP HOSPITAL STGES/AROUS AL FRM SLEEP 10546 UNSPECIFIED 12-05-2009 [facility] V851 BODY MASS 12-05-2009 [facility]OSPITAL 19-24 ADULT 88029 GENERALIZED 12-04-2009 V[facility], ANXIETY JAG M DISORDER V173 FAMILY 11-14-2009 [facility] MEHDI HISTORY OF ISCHEMIC CONSULTING HEART SRV PSC DISEASE 2720 PURE 11-07-2009 [facility] 4920 EMPHYSEMATO 11-07-2009 [facility] [place] US BLEB RADIOLOGY 486 PNEUMONIA, 10-05-2009 [place] ORGANISM RADIOLOGY UNSPECIFIED ASSOCIATES PSC 514 PULMONARY 07-03-2009 [place] CONGESTION RADIOLOGY AND ASSOCIAT HYPOSTASIS 3699 UNSPECIFIED 04-14-2009 [facility] VISUAL HOSPITAL LOSS 55331 UNSPECIFIED 04-14-2009 [facility] HOSPITAL CONJUNCTIVI TIS 43381 PAIN IN OR 04-14-2009 [place] [facility] AROUND EYE SERV FOUNDATIO 76290 UNSPECIFIED 04-13-2009 [facility] SCLERITIS HOSPITAL 7220 DISPLCMT 03-14-2009 [facility] [place] CERV RADIOLOGY INTERVERT DISC WITHOUT MYELOPATHY 91969 DEGEN 03-14-2009 [facility] THORACIC/TH [facility] ORACOLUST. [facility] INTERVERTEB RAL DISC 7241 PAIN IN 03-14-2009 [facility] [place] THORACIC RADIOLOGY SPINE 2763 ALKALOSIS 01-14-2009 KRISTIAN ARRIOLA 50314 [facility] 01-14-2009 ABIDA ARRIOLA ACUT/CHRN W/O HEMOR PERF/OBST 5770 ACUTE 01-14-2009 [facility] PANCREATITI KRISTIAN Faye S 78979 DEHYDRATION 10-09-2008 WIGNAKUMAR, VELUPILLAI 5771 CHRONIC 10-09-2008 WIGNAKUMAR, PANCREATITI VELUPILLAI S 33331 ABDOMINAL 10-09-2008 WIGNAKUMAR, PAIN, VELUPILLAI EPIGASTRIC 44293 UNSPECIFIED 10-08-2008 [facility] ESOPHAGITIS HOSPITAL 63744 CHRON/UNS 10-08-2008 [facility] W/[facility] W/O MENTION OBST 34616 ACUT DUOD 10-08-2008 [place] [facility] INPATIENT W/[facility] MEDICINE W/O MENTION ASSOC OBSTRUCTION 92405 UNS 10-08-2008 [facility]IS[facility] ASTRODUODIT [facility] IS W/O MENTION HEMORR 5362 PERSISTENT 10-08-2008 [place] VOMITING INPATIENT MEDICINE ASSOC 5368 DYSPEPSIA&O 10-08-2008 [facility] DISORDERS [facility] FUNCTION STOMACH 5533 DIAPHRAGMAT 10-08-2008 [facility] [place]EN W/O RADIOLOGY MENTION OBSTRUCTION /GANGREN 13880 OTHER 09-14-2008 [place] SPECIFIED RADIOLOGY DISORDER OF ASSOCIATES INTESTINES PSC [...] on SYPHILIS IGG TEST (EIA) (02-15-2014 08:00) Psychiatric Clinical Nurse Specialist: Zenaida Ordonez MD FCAP Lab: [facility] Division of Laboratory Services Lab Address: [address] [place] [address], [address] [place] [address] 02-15-2014 8:00 am Specimen Collection Start Date/Time: Case Finishing Machine Adjuster: Specimen [email or web address] 02-18-2014 9:14 am Date/Time: [facility]ing Physician[facility] 02-18-2014 2:37 pm Results Rpt/Status Change Date/Time: This report contains patient information that must be protected in accordance with the Health Insurance Portability and Accountability Act. COLLECT NA complet OR 014 ed 08:00 ETHNICI W complet TY 014 ed 08:00 PURPOSE ROUTINE complet OF 014 ed EXAM 08:00 SPECIME BLOOD complet N 014 ed SOURCE 08:00 CHART [id number] complet NUMBER 014 ed 08:00 SYPHILI NON-ROBERTO [...] complet N 014 ed SOURCE 08:00 CHART [id number] complet NUMBER 014 ed 08:00 Trepone Pending [...] Procedure [place] [address] [place] ABDOMEN & 7 MEDICAL PELVIS IMAGING W/[place] [address] [facility] L[facility]ASE 7 [facility] INC INC BLOOD 55702 [facility] COUNT 7 [facility] COMPLETE INC INC AUTO&[place] [address] [facility] B[facility] AMYLASE 7 [facility] INC INC COMPREHEN 49549 [facility] SIVE 7 [facility] METABOLIC INC INC PANEL DRUG TEST 47956 OMAR NELSON PRSMV 7 SHANE MAXWELL MD,PSC CHEMISTRY ANALYZERS COMPREHEN 25520 OMAR NAVARRO 7 CELIA MAXWELL [place] [address] NELSON NELSON GLUTAMYLT 7 EMILY MAXWELL MD,PSC GAMMA BLOOD 96390 NELSON NELSON COUNT 7 EM MAXWELL MD,PSC AUTO&AUTO DIFRNTL WBC COLLECTIO 83633 NELSON NELSON N VENOUS 7 ART MAXWELL [place] [address] NELSON NELSON PHOSPHORU 7 Thomas MAXWELL MD,PSC INORGANIC BILIRUBIN 10912 NELSON NELSON DIRECT 7 MD ALISSA,[place] [address] NELSON PELLANT TESTOSTER 6 FLOWER MAXWELL TOTAL ,PSC COLLECTIO 06050 NELSON PELLANT N VENOUS 6 FLOWER MAXWELL MD,PSC VENIPUNCT URE BLOOD 98301 NELSON PELLANT COUNT 6 FLOWER MAXWELL MD,PSC AUTO&[place] [address] NELSON PELLANT GLUTAMYLT 6 FLOWER MAXWELL MD,PSC GAMMA COMPREHEN 56413 NELSON PELLANT SIVE 6 FOLWER MAXWELL MD,PSC PANEL DRUG TEST G0479 NELSON PELLANT 6 FLOWER MAXWELL PRESUMP;I ,PSC NSTRUMENT ED CHEMISTRY ANLYZER COMPREHEN 75611 [facility] SIVE 6 [facility] [place] [address] [facility] INFUSION 6 [facility] THER INC INC PROPH ADDL SEQUENTIA L TO 1 HR PRESSURIZ 69126 [facility] ED/NONPRE 6 [facility] SSURIZED [place] [address] [facility] INFUSION 6 [facility] THERAPY/P INC INC ROPHYLAXI S /DX 1ST TO 1 HR BLOOD 27135 [facility] COUNT 6 [facility] COMPLETE INC INC AUTO&AUTO DIFRNTL WBC RADIOLOGI 47927 [facility] C EXAM 6 [facility] CHEST 2 INC INC VIEWS FRONTAL&L ATERAL INJECTION J2405 [facility] 6 [facility] ONDANSETR INC INC ON HCL PER 1 MG THERAPEUT 83422 [facility] IC 6 [facility] PROPHYLAC INC INC TIC/DX INJECTION SUBQ/IM THERAPEUT 59552 [facility] IC [facility] PROPHYLAC INC INC TIC/DX INJECTION SUBQ/IM LOCM Q9967 [facility] [phone] [facility] MG/ML INC [place] [address] [facility] ANGIOGRAP 6 [facility] HY INC INC ABDOMEN W/CONTRAS T/[place] [address] ESSENCE HAMILTON ALL ABDOMEN 6 MEDICAL W/O IMAGING CONTRAST ASS MATERIAL COLLECTIO 97687 [facility] B[facility] N VENOUS 6 [facility] BLOOD INC INC VENIPUNCT URE BASIC 75303 [facility] METABOLIC 6 [facility] [place] [address] [facility] B[facility] RETROPERI 6 [facility] TONEAL INC [place] W/[place] [address] ESSENCE HAMILTON ALL RETROPERI 6 MEDICAL TONEAL IMAGING REAL TIME ASS W/IMAGE LIMITED DRUG TST G0477 [facility] PRESUMP;C 6 [facility] PBL BEING INC INC READ DC OPT OBV ONLY GROUND A0425 [facility] [address] PER AMBULANCE AMBULANCE STATUTE SE SE MILE AMBULANCE A0429 [facility] SERVICE [address] [place] [address] AMBULANCE AMBULANCE EMERGENCY SE SE TRANSPORT GROUND A0425 [facility] [address] PER AMBULANCE AMBULANCE STATUTE SE SE MILE AMBULANCE A0429 [facility] SERVICE [address] [place] [address] AMBULANCE AMBULANCE EMERGENCY SE SE TRANSPORT THERAPEUT 86893 [facility] IC 6 [facility] PROPHYLAC INC INC TIC/DX INJECTION SUBQ/IM DRUG TST G0477 [facility] PRESUMP;C 6 [facility] PBL BEING INC INC READ DC OPT OBV ONLY DRUG TST G0477 [facility] B[facility] PRESUMP;C 6 [facility] PBL BEING INC INC READ DC OPT OBV ONLY HOSPITAL [address] [facility] DISCHARGE 6 DM DAY PHYSICIAN MANAGEMEN SERVI T > 30 MIN SBSQ 12190 [facility] 6 DM CARE/DAY PHYSICIAN 25 SERVI MINUTES SBSQ 16806 [facility] 6 DM CARE/DAY PHYSICIAN 25 SERVI MINUTES DIL PANC [id number] [facility] DUCT 6 Y Y [facility] DEV ASHLEY/ART OPENING ENDO EXCISION [id number] [facility] BILE 6 Y Y DUCT [facility] ASHLEY/ART OPENING ENDO DX DILATION [id number] [facility] BILE 6 Y Y DUCT [facility] ASHLEY/ART OP ENDO CMBN NDSC 36730 PR [facility] CATHJ 6 MEDICAL SCO BILIARY&P SERV NCRTC FOUNDATIO DUCTAL N SYS RS&I ERCP 69535 [place] NICKL III STENT 6 MEDICAL SAMANTHA PLACEMENT SERV FOUNDATIO BILIARY/P N ANCREATIC DUCT MRI 66503 [place] MELISSA ABDOMEN 6 MEDICAL W/O & SERV W/CONTRAS FOUNDATIO T N MATERIAL SBSQ 94983 [facility] 6 DM CARE/DAY PHYSICIAN 25 SERVI MINUTES SBSQ 07310 [facility] 6 DM CARE/DAY PHYSICIAN 35 SERVI MINUTES INITIAL 30680 [facility] 6 MEDICAL CARE/DAY SERV 30 [place] [address] [place] ABDOMINAL 6 MEDICAL GLORIA REAL SERV TIME FOUNDATIO W/IMAGE N LIMITED INITIAL 42454 [facility] 6 DM MICHAEL CARE/DAY PHYSICIAN 70 SERVI MINUTES THER 05196 [facility] PROPH/DX 6 [facility] NJX EA INC INC SEQL IV PUSH SBST/[place] [address] [facility] INFUSION 6 [facility] THERAPY/P INC INC ROPHYLAXI S /DX 1ST TO 1 HR THERAPEUT 64942 [facility] IC 6 [facility] INJECTION INC INC IV PUSH EACH NEW DRUG LOCM Q9967 [facility] [phone] [facility] MG/ML INC INC IODINE CONCENTRA TION PER ML INJECTION J2405 [facility] 6 [facility] ONDANSETR INC INC ON HCL PER 1 MG COMPREHEN 92361 [facility] SIVE 6 [facility] [place] [address] [facility] AMYLASE 6 MEM H[facility] INC INC BLOOD 93019 [facility] COUNT 6 [facility] H[facility] COMPLETE INC INC AUTO&[place] [address] [facility] PURCELLINEKE ABDOMEN & 6 MEDICAL JAKE PELVIS IMAGING [place] [address] [facility] LIPASE 6 [facility] HOSP INC INC AMBULANCE A0428 [facility] SERVICE 6 AMBULANCE AMBULANCE [facility] SERVICE SERVICE [facility] TRANSPORT GROUND A0425 [facility] MILEAGE 6 AMBULANCE AMBULANCE PER SERVICE SERVICE STATUTE MILE AMBULANCE A0429 [facility] SERVICE 6 [facility] AMBULANCE AMBULANCE EMERGENCY SE SE TRANSPORT MRI 41942 ESSENCE BACK ABDOMEN 6 MEDICAL REID W/O IMAGING CONTRAST ASS MATERIAL BLOOD 31418 [facility] COUNT 6 [facility] COMPLETE INC INC AUTO&AUTO DIFRNTL WBC COLLECTIO 13001 [facility] B[facility] N VENOUS 6 [facility] HOSP [place] [address] [facility] BER[facility] FREE 6 [facility] [place] [address] [facility] B[facility] THYROID 6 [facility] HOSP STIMULATI INC INC NG HORMONE TSH 3D 85069 ESSENCE NAZANIN RENDERING 6 MEDICAL REID W/INTERP IMAGING & ASS POSTPROCE SS SUPERVISI ON LIPID 79048 [facility] B[facility] PANEL 6 [facility] INC INC HEPATIC 62216 [facility] FUNCTION 6 [facility] PANEL INC INC BASIC 30254 [facility] METABOLIC 6 [facility] PANEL INC INC CALCIUM TOTAL ECG 20496 [facility] ROUTINE 6 [facility] ECG INC INC W/LEAST 12 LDS TRCG ONLY W/O I&R DRUG TST G0477 [facility] PRESUMP;C 6 [facility] PBL BEING INC INC READ DC OPT OBV ONLY DRUG TEST G0481 [facility] DEFINITV [address] [facility] [address] ID INC INC METH P DAY 8-14 DRUG CL CV STRS 50301 [facility] TST 6 PHYSICIAN XERS&/OR S GROUP RX CONT ECG W/O I&R MYOCARDIA 97543 ESSENCE HAMILTON ALL L SPECT 6 MEDICAL MULTIPLE IMAGING STUDIES ASS SBSQ 51042 [place] [address] PHYSICIAN GLORIA CARE/DAY S GROUP 15 MINUTES INITIAL 57263 [place] [address] PHYSICIAN GLORIA CARE/DAY S GROUP [address] [place] [address] [facility] HAMILTON ALL ABDOMEN & 6 MEDICAL PELVIS IMAGING W/CONTRAS ASS T MATERIAL ECG 26976 [facility] PRADHAN JR ROUTINE 6 [facility] W/LEAST P 12 LDS I&R ONLY ECG 91852 [facility] PRADHAN JR ROUTINE 6 [facility] W/LEAST P 12 LDS I&[place] [address] [facility] JO[facility] ALL ABDOMEN & 6 MEDICAL PELVIS IMAGING W/O ASS CONTRAST MATERIAL INITIAL 49459 [facility] 6 PHYSICIAN HANK CARE/DAY S GROUP 50 MINUTES GROUND A0425 [facility] PRINCE MILEAGE [address] [place] [address] PER AMBULANCE AMBULANCE STATUTE SE SE MILE AMB A0427 [facility] PRINCE SERVICE [address] [place] [address] ALS AMBULANCE AMBULANCE EMERGENCY SE SE TRANSPORT LEVEL 1 DRUG TST G0483 [facility] DEFINITV [address] [facility] [address] ID INC INC METH P DAY 22/MORE DR CL DRUG TST G0477 [facility] PRESUMP;C 6 [facility] PBL BEING INC INC READ DC OPT OBV ONLY 3D 15528 ESSENCE BACK RENDERING 6 MEDICAL REID W/INTERP IMAGING & ASS POSTPROCE SS SUPERVISI ON MRI 54474 [place] NAZANIN SPINAL 6 MEDICAL REID CANAL IMAGING THORACIC ASS W/O CONTRAST MATRL MRI 14403 ESSENCE BACK SPINAL 6 MEDICAL REID CANAL IMAGING LUMBAR ASS W/O CONTRAST MATERIAL DRUG TST G0477 [facility] PRESUMP;C 6 [facility] PBL BEING INC INC READ DC OPT OBV ONLY F2 GENE 05736 [employer]NALYS[employer] , [employer] [id number] >A VARIANT ECG 42535 [facility] ROUTINE 6 [facility] ECG INC INC W/LEAST 12 LDS TRCG ONLY W/O I&R MTHFR 70817 [employer] GENE [employer] , [employer] ANALYSIS COMMON VARIANTS F5 33401 [employer] COAGULATI [employer] , [employer] ON FACTOR V ANAL LEIDEN VARIANT DUPLEX 06051 [facility] SCAN 6 [facility] EXTRACRAN INC INC IAL ART COMPL BI STUDY DRUG TST G0477 [facility] PRESUMP;C 6 [facility] PBL BEING INC INC READ DC OPT OBV ONLY E-STIM G0283 [facility] B[facility] 1/> AREAS 5 [facility] OTH THAN INC INC WND CARE PART TX PLAN THERAPEUT 09498 [facility] IC PX 1/> 5 [facility] AREAS INC INC EACH 15 MIN EXERCISES APPL 12329 [facility] MODALITY 5 [facility] 1/> AREAS INC INC ELEC STIMJ UNATTENDE D APPLICATI 85463 [facility] ON 5 [facility] MODALITY INC INC 1/> AREAS HOT/COLD PACKS MANUAL 21439 [facility] THERAPY 5 [facility] TQS 1/> INC INC REGIONS EACH 15 MINUTES APPL 78288 [facility] MODALITY 5 [facility] 1/> AREAS INC INC ELEC STIMJ UNATTENDE D PHYSICAL 54558 [facility] THERAPY 5 [facility] EVALUATIO INC INC N THERAPEUT 39239 [facility] B[facility] IC PX 1/> 5 MEM [...] INC INC TX OUTSET&RE P INTRVL 3D 25078 [facility] RENDERING 5 [facility] W/INTERP INC INC & POSTPROCE SS SUPERVISI ON MRI 15774 [facility] SPINAL 5 [facility] CANAL INC INC CERVICAL W/O CONTRAST MATRL ANES 41310 [facility] GAN UPPER GI 4 LTH SAMANTHA ENDOSCOPY ANESTHESI PROXIMAL A PSC TO DUODENUM SPECIAL 87233 GUDELIA ESCALANTE STAIN 4 [facility] GROUP 1 CLINIC MICROORGA PSC NISMS I&[place] [address] GUDELIA ESCALANTE SURG 4 [facility] PATHOLOGY CLINIC PSC GROSS&GLORIA ROSCOPIC EXAM RADEX ABD 53095 [facility] COMPL 4 FLOWER AQT ABD RADIOLOGY W/S/E/D ASSOCIAT VIEWS [address] [place] [address] [facility] ABDOMEN & 4 FLOWER PELVIS RADIOLOGY W/CONTRAS ASSOCIAT T MATERIAL PRQ 54475 CARDIOVAS ERIC TRLU 4 CULAR MAT CORONARY CONSULTAN STENT TS O W/ANGIO ONE ART/BRNCH ECHO 35397 CARDIOVAS [facility] TTHRC R-T 4 CULAR MAT 2D CONSULTAN W/WOM-MOD TS O E COMPL SPEC&COLR D CATH PLMT 11896 CARDIOVAS ERIC L HRT & 4 CULAR MAT ARTS CONSULTAN W/NJX & TS O ANGIO IMG S&I INITIAL 42121 [facility] 4 CULAR MAT CARE/DAY CONSULTAN 70 TS O MINUTES RADIOLOGI 25328 ESSENCE Gotti 3 MEDICAL REID EXAMINATI IMAGING ON CHEST ASS SINGLE VIEW FRONTAL RADIOLOGI 72330 [facility] [place] YARELI C EXAM 3 RADIOLOGY RHO CHEST 2 VIEWS FRONTAL&L ATERAL RADIOLOGI 26066 [facility] C EXAM 3 FLOWER CHEST 2 RADIOLOGY VIEWS ASSOCIAT FRONTAL&[place] [address] [facility] HEAD/BRAI 3 FLOWER N W/O RADIOLOGY CONTRAST ASSOCIAT MATERIAL ELECTROEN 03727 MHC INC, MHC INC, CEPHALOGR 3 ANIMAL BREEDER ANIMAL BREEDER AM W/REC SURESH PRINCE AWAKE&ASL CO HOS CO HOS EEP RADEX 73852 [facility] SPINE 3 Y Y CERVICAL [facility] 2 OR 3 VIEWS RADEX 45448 [place] NICKELS SPINE 3 MEDICAL TIANNA CERVICAL SERV 2 [place] [address] [place] MERHAR THORACIC 3 MEDICAL GAR SPINE W/O SERV CONTRAST FOUNDATIO MATERIAL INJECTION J1953 [facility] 3 Y Y LEVETIRAC [facility] ETAM 10 MG INFUSION J7050 [facility] NORMAL 3 Y Y SALINE [facility] SOL[place] 250 [place] [address] [facility] INFUSION 3 Y Y THERAPY/P [facility] ROPHYLAXI S /DX 1ST TO 1 HR GROUND A0425 ARMENIAN ARMENIAN MILEAGE 3 AMBULETT AMBULETT PER & & STATUTE AMBULANC AMBULANC MILE INJECTION J2270 [facility] MORPHINE 3 Y Y SULFATE [facility] UP TO 10 MG THERAPEUT 06940 [facility] IC 3 Y Y INJECTION [facility] [place] [address] TITI MCCARTHY HEAD/BRAI 3 MEDICAL DASHA N W/[place] [address] [place] MERHAR CERVICAL 3 MEDICAL GAR SPINE W/O SERV CONTRAST FOUNDATIO MATERIAL CT LUMBAR [address]172 [place] MERHAR SPINE 3 MEDICAL GAR W/O SERV CONTRAST FOUNDATIO MATERIAL AMB A0427 ARMENIAN ARMENIAN SERVICE 3 AMBULETT AMBULETT ALS & & EMERGENCY AMBULANC AMBULANC TRANSPORT LEVEL 1 RADIOLOGI 73408 [facility] 3 JESSI CHEST 2 RADIOLOGY VIEWS ASSOCIAT FRONTAL&L ATERAL CT ORBIT 47155 [facility] SELLA/POS 3 JESSI T RADIOLOGY FOSSA/EAR ASSOCIAT W/[place] [address] ERVIN MATSON CERVICAL 3 JESSI SPINE W/O RADIOLOGY CONTRAST ASSOCIAT MATERIAL ECG 88938 [facility] R[facility] 3 [facility] HEALTH W/LEAST CLINIC 12 LDS I&[place] [address] ERVIN MATSON HEAD/BRAI 3 JESSI N W/O RADIOLOGY CONTRAST ASSOCIAT MATERIAL FLUOR 52585 COMMONWEA MITA II NEEDLE/CA 3 LTH SLEEP ELIAZAR TH AND REHA SPINE/PAR ASPINAL DX/THER ADDON MODERATE 50620 COMMON[facility]A MITA II SEDATJ 3 LTH SLEEP ELIAZAR SAME AND REHA PHYS/QHP 5/>YRS INIT 30 MIN NJX 62758 COMMONWEA MITA II DX/THER 3 LTH SLEEP ELIAZAR SBST AND REHA EPIDURAL/ SUBRACH CERV/THOR ACIC NJX 99996 COMMONWEA MITA II DX/THER 3 LTH SLEEP ELIAZAR SBST AND REHA EPIDURAL/ SUBRACH CERV/THOR ACIC MODERATE 31624 COMMONWEA MITA II SEDATJ 3 LTH SLEEP ELIAZAR SAME AND REHA PHYS/QHP 5/>YRS INIT [address] [facility] 200-299 3 [facility] MG/ML IODINE CONCENTRA TION PER ML FLUOR 17584 COMMONWEA MITA II NEEDLE/CA 3 LTH SLEEP ELIAZAR TH AND REHA SPINE/PAR ASPINAL DX/THER ADDON TENS E0730 EMPI INC EMPI INC DEVICE 3 4/MORE LEADS MULTI NERVE STIMULATI ON TENS E0730 EMPI INC EMPI INC DEVICE 2 4/MORE LEADS MULTI NERVE STIMULATI ON RADIOLOGI 72493 ERVIN MATSON C EXAM 2 JESSI CHEST 2 RADIOLOGY VIEWS ASSOCIAT FRONTAL&L ATERAL FLUOR 99117 COMMONWEA MITA II NEEDLE/CA 2 LTH SLEEP ELIAZAR TH AND REHA SPINE/PAR ASPINAL DX/[place]X 29167 COMMONWEA MITA II DX/THER 2 LTH SLEEP ELIAZAR SBST AND REHA EPIDURAL/ SUBRACH CERV/THOR ACIC INJECTION J1030 VILLAFLOR VILLAFLOR 2 OSI OSI METHYLPRE DNISOLONE ACETATE 40 MG INJECTION J3420 VILLAFLOR VILLAFLOR VIT B-12 2 OSI OSI CYANOCOBA KAREN TO 1000 MCG THERAPEUT 73198 VILLAFLOR VILLAFLOR IC 2 OSI OSI PROPHYLAC TIC/DX INJECTION SUBQ/IM RADEX 42820 [facility] [employer], [facility] INC, SHOULDER 2 ANIMAL BREEDER ANIMAL BREEDER COMPLETE SURESH SURESH MINIMUM 2 CO HOS CO HOS VIEWS INJECTION J1885 [employer], [facility] INC, 2 ANIMAL BREEDER ANIMAL BREEDER KETOROLAC SURESH SURESH CO HOS CO HOS TROMETHAM INE PER 15 MG INJECTION J1030 VILLAFLOR VILLAFLOR 2 OSI OSI METHYLPRE DNISOLONE ACETATE 40 MG INJECTION J3420 VILLAFLOR VILLAFLOR VIT B-12 2 OSI OSI CYANOCOBA KAREN TO 1000 MCG THERAPEUT 53138 VILLAFLOR VILLAFLOR IC 2 OSI OSI PROPHYLAC TIC/DX INJECTION SUBQ/IM THERAPEUT 24283 VILLAFLOR VILLAFLOR IC 2 OSI OSI PROPHYLAC TIC/DX INJECTION SUBQ/IM INJECTION J3420 VILLAFLOR VILLAFLOR VIT B-12 2 OSI OSI CYANOCOBA KAREN TO 1000 MCG INJECTION J1030 VILLAFLOR VILLAFLOR 2 OSI OSI METHYLPRE DNISOLONE ACETATE 40 MG MODERATE 09681 COMMONWEA MITA II SEDATJ 2 LTH SLEEP ELIAZAR SAME AND REHA PHYS/QHP 5/>YRS INIT 30 MIN NJX 18407 COMMONMICHELLE MITA II DX/THER 2 LTH SLEEP ELIAZAR SBST AND REHA EPIDURAL/ SUBRACH CERV/THOR ACIC ECG 58182 [facility]ON[facility] HARDING HARDING BRONSON ROUTINE 1 ECG CONSULTIN W/LEAST G SRV 12 LDS I&R ONLY THERAPEUT 08853 VILLAFLOR VILLAFLOR IC 1 OSI OSI PROPHYLAC TIC/DX INJECTION SUBQ/IM INJECTION J3420 VILLAFLOR VILLAFLOR VIT B-12 1 OSI OSI CYANOCOBA KAREN TO 1000 MCG INJECTION J3420 VILLAFLOR VILLAFLOR VIT B-12 1 OSI OSI CYANOCOBA KAREN TO 1000 MCG THERAPEUT 28702 VILLAFLOR VILLAFLOR IC 1 OSI OSI PROPHYLAC TIC/DX INJECTION SUBQ/IM RENAL 76843 SURESH PRINCE FUNCTION 1 CO CO [facility]PITAL COLLECTIO 25565 SURESH PRINCE N VENOUS 1 [facility] VENIPUNCT URE RADEX 10137 [place] TORSTEN RADHA SPINE 1 MEDICAL CERVICAL SERV 2 OR 3 FOUNDATIO VIEWS NASOPHARY 34043 [place] GAL THO NGOSCOPY 1 MEDICAL W/ENDOSCO SERV PE SPX FOUNDATIO ELECTROLY 99029 SURESH PRINCE TE PANEL 1 [facility] COLLECTIO 62651 SURESH PRINCE N VENOUS 1 [facility] VENIPUNCT URE RADEX 07297 TITI DISANTIS SPINE 1 MEDICAL TIANNA CERVICAL SERV 2 OR 3 FOUNDATIO VIEWS ANESTHESI 58228 [place] MARIE A 1 MEDICAL DEDRA EXTENSIVE SERV SPINE & FOUNDATIO SPINAL CORD OPTX&/RDC 17011 [facility] TJ VRT 1 [place] ASH FX&/DISLC PHYSICIAN PST 1 S ASSIST VRT SGM CR POSTERIOR 65368 [facility] 1 [place] ASH SEGMENTAL PHYSICIAN S ASSIST INSTRUMEN TATION 3-6 VRT SEG OPTX&/RDC 44476 [facility] TJ VRT 1 [place] ASH FX&/DISLC PHYSICIAN PST 1 S ASSIST VRT SGM EA ARTHRODES 41358 [facility] IS 1 [place] ASH PST/PSTLA PHYSICIAN T S ASSIST CERVICAL BELW C2 SGM ARTHRODES 19266 [facility] IS 1 [place] ASH POSTERIOR PHYSICIAN /POSTEROL S ASSIST ATERAL EA ADDL INSJ 19984 [place] MARIE NON-TUNNE 1 MEDICAL DEDRA LED SERV CENTRAL FOUNDATIO VENOUS CATH AGE 5 YR/> ARTL 39144 [place] MARIE CATHJ/CAN 1 MEDICAL DEDRA NULJ SERV MNTR/FORBES FOUNDATIO SFUSION SPX PRQ RADEX 04343 TITI CABRAL JAM SPINE 1 1 MEDICAL VIEW SERV SPECIFY FOUNDATIO LEVEL SBSQ 57138 [facility] 1 Y OF N CARLITOS CARE/DAY [facility] 25 INTER MINUTES INITIAL 77960 [place] [facility] 1 MEDICAL CARE/DAY SERV 70 FOUNDATIO MINUTES ECHO 01417 [place] DERIK TTHRC R-T 1 MEDICAL ALI 2D SERV W/WOM-MOD FOUNDATIO E COMPL SPEC&COLR D ELECTROEN 45902 [place] BENSAL[place] CEPHALOGR 1 MEDICAL DOMINIK AM W/REC SERV AWAKE&GILBERT FOUNDATIO WSY INITIAL 04343 [facility] 1 MEDICAL RYA CARE/DAY SERV 30 [place] [address] SURESH PRINCE INFUSION 1 CO CO HYDRATION [facility]OSPITAL INITIAL 31 MIN-[address] [place] [address] [facility] HEAD/BRAI 1 FLOWER N W/[place] [address] [facility] CERVICAL 1 FLOWER SPINE W/O RADIOLOGY CONTRAST ASSOCIAT MATERIAL ECG 78438 [place] DMITRY C ROUTINE 1 MEDICAL ECG SERV W/LEAST FOUNDATIO 12 LDS I&R ONLY COLLECTIO 63858 SURESH PRINCE N VENOUS 1 CO CO BLOOD [facility] [place] [address] TITI ALHAJERI ANGIOGRAP 1 MEDICAL ABD HY NECK SERV W/CONTRAS FOUNDAT[place] T/[place] [address] [facility] MAXILLOFA 1 FLOWER CIAL W/O RADIOLOGY CONTRAST ASSOCIAT MATERIAL MRI 34095 [place] [facility] SPINAL 1 [facility] CERVICAL W/O CONTRAST MATRL CT LUMBAR 49624 [place] NICKELS SPINE 1 MEDICAL TIANNA W/O SERV CONTRAST FOUNDATIO MATERIAL BLOOD 52135 SURESH PRINCE COUNT 1 CO CO COMPLETE [facility] AUTO&[place] [address] SURESH PRINCE INFUSION 1 CO CO THERAPY/P HOSPITAL HOSPITAL ROPHYLAXI S /DX [address] [place] [address] [place] [address] [place] NICKELS THORACIC 1 MEDICAL TIANNA SPINE W/O SERV CONTRAST FOUNDATIO MATERIAL BLOOD 13636 SURESH PRINCE COUNT 1 [facility] MCRSCP W/MNL DIFRNTL WBC COUNT THER 39819 SURESH PRINCE PROPH/DX 1 [facility] NJX IV HOSPITAL HOSPITAL PUSH SINGLE/1S T SBST/DRUG COMPREHEN 73222 SURESH PRINCE SIVE 1 [facility] METABOLIC [facility]OSPITAL PANEL COMPREHEN 59674 BOJOSIE LEONEON SIVE [address] [facility] [place] [address] SULEMAON SULEMAON INFUSION 1 [facility] THERAPY/P HOSPITAL HOSPITAL ROPHYLAXI S /DX 1ST TO 1 HR THERAPEUT 23751 SHAUN LEONEON IC 1 [facility] INJECTION [facility] IV PUSH EACH NEW DRUG BLOOD 71746 SULEMAON SULEMAON COUNT 1 [facility] AUTO&[place] [address] SULEMAON SULEMAON TROPONIN 1 [facility] FARTUN URNLS DIP 00390 BONAVJOTON [place] 1 [facility] STICK/TAB HOSPITAL HOSPITAL LET REAGENT AUTO MICROSCOP Y RADIOLOGI 30157 SULEMAON SULEMAON C EXAM 1 [facility] CHEST 2 [facility] VIEWS FRONTAL&L ATERAL DEMO&/GLENNY 19674 SULEMAON SULEMAON L OF PT 1 [facility] UTILIZ [facility]OSPITAL AERSL GEN/NEB/I NHLR/IP ECG 80835 [place] ROUTINE 1 [facility] W/LEAST 12 LDS TRCG ONLY W/O I&R CREATINE 09260 SULEMAON SULEMAON KINASE 1 [facility] [place] TOTAL [facility] COLLECTIO 63266 [place] SULEMAON N VENOUS 1 [facility] VENIPUNCT URE ECG 12212 MOOKIE DICKINSON ROUTINE 1 EMERGENCY ECG SERVICES W/LEAST 12 LDS I&R ONLY CREATINE 81902 [facility] KINASE MB 1 [facility] [place]RA[place] [facility] [place] [place] [address] SHAUN DUNN INFUSION 1 [facility] [place] HYDRATION [facility] EACH ADDITIONA L HOUR CT THORAX 62160 [place]TR[place] JAMIE MAT W/O & 1 RADIOLOGY W/CONTRAS T MATERIAL LOCM Q9967 SHAUN DUNN [phone] [facility] [place] MG/ML [facility] IODINE CONCENTRA TION PER ML THERAPEUT 88140 VILLAFLOR VILLAFLOR IC 0 OSI OSI PROPHYLAC TIC/DX INJECTION SUBQ/IM THERAPEUT 05165 VILLAFLOR VILLAFLOR IC 0 OSI OSI PROPHYLAC TIC/DX INJECTION SUBQ/IM INJECTION J3420 VILLAFLOR VILLAFLOR VIT B-12 0 OSI OSI CYANOCOBA KAREN TO 1000 MCG ADMINISTR G0008 VILLAFLOR VILLAFLOR ATION OF 0 OSI OSI INFLUENZA VIRUS VACCINE IIV3 30895 VILLAFLOR VILLAFLOR VACCINE 0 OSI OSI SPLIT VIRUS 0.5 ML DOSAGE IM USE LIPID 86198 SURESH PRINCE PANEL 0 CO CO [facility] HEPATIC 17427 SURESH PRINCE FUNCTION 0 CO CO PANEL [facility] COLLECTIO 13510 SURESH PRINCE N VENOUS 0 CO CO BLOOD [facility] [place] [address] SURESH PRINCE THYROID 0 CO CO STIMULATI [facility] [place] [address] SURESH PRINCE FREE 0 CO CO THYROXINE [facility] CT THORAX 19659 SHAUN DUNN W/O 0 [facility] [place] CONTRAST [facility] MATERIAL INJECTION J3420 VILLAFLOR VILLAFLOR VIT B-12 0 OSI OSI CYANOCOBA KAREN TO 1000 MCG INJECTION 48231 CARDIOLOG SAVANNAH CARDIAC 0 Y ANT CATHJ L ASSOCIATE VENTR/L S OF [place] ATR ANGIOGRAP H L HRT 40680 CARDIOLOG SAVANNAH CATHETERI 0 Y ANT ZATION ASSOCIATE [place] [address] CARDIOLOG SAVANNAH C-CATHJ 0 Y ANT F/SLCTV C ASSOCIATE ANGRPH S OF [place] I SI&R 74474 CARDIOLOG SAVANNAH F/NJX PX 0 Y ANT DURING ASSOCIATE C-CATHJ S OF [place] VENTR&/AT R ANGRPH I SI&R 37187 CARDIOLOG SAVANNAH F/NJX PX 0 Y ANT DURING ASSOCIATE C-CATHJ S OF [place] PULM&/OR SELECT INJECTION J1030 VILLAFLOR VILLAFLOR 0 OSI OSI METHYLPRE DNISOLONE ACETATE 40 MG BASIC 96586 SURESH PRINCE METABOLIC 0 CO [facility] CALCIUM TOTAL BLOOD 42455 SURESH PRINCE COUNT 0 CO [facility] MCRSCP W/MNL DIFRNTL WBC COUNT COLLECTIO 12750 SURESH PRINCE N VENOUS 0 CO [facility] VENIPUNCT URE BLOOD 83712 SURESH PRINCE COUNT 0 CO [facility] AUTO&AUTO DIFRNTL WBC ECG 40793 BRONSON HARDING HARDING BRONSON ROUTINE 0 MD ECG CONSULTIN W/LEAST G SRV 12 LDS W/I&R ECG 38291 BRONSON HARDING HARDING BRONSON ROUTINE 0 MD ECG CONSULTIN W/LEAST G SRV 12 LDS W/I&R POLYSOM 00979 BRONSON HARDING HARDING BRONSON 6/>YRS 0 MD SLEEP 4/> CONSULTIN ADDL G SRV NAY ATTND POLYSOM 51319 [place] 6/>YRS 0 [facility] SLEEP 4/> [facility] ADDL NAY ATTND MYOCARDIA 78034 BRONSON HARDING HARDING, L SPECT 0 MD PANCHITO Treviño MULTIPLE CONSULTIN STUDIES G SRV PSC INJECTION J2785 BRONSON HARDING HARDING, 0 MD PANCHITO Treviño REGADENOS CONSULTIN ON 0.1 MG G SRV PSC CV STRS 42653 BRONSON HARDING HARDING, TST 0 MD PANCHITO Treviño XERS&/OR CONSULTIN RX CONT G SRV PSC ECG W/SI&R TECHNETIU A9500 BRONSON HARDING HARDING, M TC-99M 0 MD PANCHITO Trevñio SESTAMIBI CONSULTIN [place] [address] [facility] REBOLLEDOS[facility] HEAD/BRAI 0 [facility] [place] [facility] W/O & [facility]PITAL HOSPITAL W/CONTRAS T MATERIAL CREATININ 20321 [facility] E BLOOD 0 [facility] COLLECTIO 34127 [facility] N VENOUS 0 [facility] VENIPUNCT URE ECG 23586 BRONSON HARDING HARDING, ROUTINE 0 MD PANCHITO Treviño ECG CONSULTIN W/LEAST G SRV PSC 12 LDS I&[place] [address] [facility] UREA 0 [facility] QUANTITAT FARTUN CT THORAX 12773 [facility] 0 [facility] W/[facility] T MATERIAL LOCM Q9967 [facility] [phone] [facility] MG/ML [facility] IODINE CONCENTRA TION PER ML ECG 30931 BRONSON HARDING HARDING BRONSON ROUTINE 0 MD ECG CONSULTIN W/LEAST G SRV 12 LDS W/I&R ECHO 49417 BRONSON HARDING HARDING BRONSON TTHRC R-T 0 2D CONSULTIN W/WOM-MOD G SRV E COMPL SPEC&COLR D RADIOLOGI 49319 [place] EVELIO EXAM 0 VLADIMIR S CHEST 2 RADIOLOGY VIEWS FRONTAL&L ASSOCIATE ATERAL S [facility] CT THORAX 86738 [place] FRASER, W/O 0 VLADIMIR S CONTRAST RADIOLOGY MATERIAL ASSOCIATE S [facility] 3D 57167 [facility], RENDERING 0 VLADIMIR S W/INTERP RADIOLOGY & POSTPROCE ASSOCIATE S PSC SUPERVISI ON RADIOLOGI 56502 [place] EVELIO EXAM 0 VLADIMIR S CHEST 2 RADIOLOGY VIEWS FRONTAL&L ASSOCIATE ATERAL S PSC RADIOLOGI 43441 [facility] EXAM 0 EIDER, CHEST 2 RADIOLOGY STAS VIEWS K FRONTAL&L ASSOCIATE ATERAL S PSC RADIOLOGI 40282 [facility] C EXAM 0 EIDER, CHEST 2 RADIOLOGY STAS VIEWS K FRONTAL&L ASSOCIATE ATERAL S PSC RADIOLOGI 58437 [place] Shen MATSON EXAM 0 FABRICE C CHEST 2 RADIOLOGY VIEWS FRONTAL&L ASSOCIATE ATERAL S PSC RADIOLOGI 14203 [place] DANO Gotti EXAM 0 JESSI CHEST 2 RADIOLOGY VIEWS ASSOCIAT FRONTAL&L ATERAL OBSERVATI 77988 [facility] BOWMAN, ON CARE 0 INPATIENT JOAQUINA H DISCHARGE MEDICINE ASSOC MANAGEMEN T INITIAL 09300 [facility] BOWMAN, OBSERVATI 0 INPATIENT JOAQUINA H ON MEDICINE CARE/DAY ASSOC 50 MINUTES RADIOLOGI 81089 [facility] Shen HUIZAR 0 RADIOLOGY SOURAV G EXAMINATI ON CHEST SINGLE VIEW FRONTAL RADIOLOGI 35058 [place] Shen MATSON EXAM 0 FABRICE Gotti CHEST 2 RADIOLOGY VIEWS FRONTAL&L ASSOCIATE ATERAL S PSC RADIOLOGI 11808 [place] CITYShen MARTÍNEZ 0 FABRICE Gotti EXAMINATI RADIOLOGY ON CHEST SINGLE ASSOCIATE VIEW S PSC FRONTAL MRI 71795 [facility] SPINAL [address] [place] [address] THORACIC W/O CONTRAST MATRL MRI [address] CERVICAL W/[place] [address] [place] CLEMONS, CERVICAL 9 RADIOLOGY SONJA A SPINE W/O CONTRAST MATERIAL BLOOD 78650 LAB AMANDA LAB AMANDA COUNT 9 AMERIC AMERIC COMPLETE HOLDING HOLDING AUTO&AUTO DIFRNTL WBC COLLECTIO 70293 LAB AMANDA LAB AMANDA N VENOUS 9 AMERIC AMERIC BLOOD [place] [address] LAB AMANDA LAB AMANDA GLUTAMYLT 9 AMERIC AMERIC RASE HOLDING HOLDING GAMMA TRANSFERA 24368 LAB AMANDA LAB AMANDA SE 9 AMERIC AMERIC ASPARTATE HOLDING HOLDING AMINO AST SGOT TRANSFERA 37570 LAB AMANDA LAB AMANDA SE 9 AMERIC AMERIC ALANINE HOLDING [place] [address] LAB AMANDA LAB AMANDA PHOSPHATA 9 AMERIC AMERIC SE HOLDING HOLDING ALKALINE BASIC 50547 LAB AMANDA LAB AMANDA METABOLIC 9 AMERIC AMERIC PANEL HOLDING HOLDING CALCIUM TOTAL RADEX ABD 18543 [place] CITY[place]ANGELISTA FRASER, COMPL 9 VLADIMIR S AQT ABD RADIOLOGY W/S/E/D VIEWS 1 ASSOCIATE VIEW S PSC RADIOLOGI 85229 AVELEVANGELISTA EVELIO, C EXAM 9 VLADIMIR S CHEST 2 RADIOLOGY VIEWS FRONTAL&L ASSOCIATE ATERAL [place] ABD [address]49 [place] YARELI, COMPL 9 RADIOLOGY SOURAV G AQT ABD W/S/E/D VIEWS 1 [facility] 18357 [facility]EN[facility] FLAKO, DISCHARGE 9 [facility]/< SBSQ 06702 [facility] 9 [facility] CARE/DAY 35 MINUTES INITIAL 12463 [facility] 9 [facility] CARE/DAY [address] PELVIS 94813 [facility] W/O 9 EIDER, CONTRAST RADIOLOGY STAS MATERIAL K ASSOCIATE S [facility] RADEX ABD 84160 [facility] COMPL 9 EIDER, AQT ABD RADIOLOGY STAS W/S/E/D K VIEWS 1 ASSOCIATE [place] [address] [facility] ABDOMEN 9 EIDER, W/O RADIOLOGY STAS CONTRAST K MATERIAL ASSOCIATE S [facility] ECG 11660 [facility] ROUTINE 9 [facility] W/LEAST 12 LDS TRCG ONLY W/O I&R ANES 27690 TITI OLIVAREZ, UPPER GI 9 ANESTHESI ITZ ENDOSCOPY A GROUP PROXIMAL PSC TO DUODENUM EGD 44433 WIGNAKUMA WIGNAKUMA TRANSORAL 9 R, R, CONTROL VELUPILLA VELUPILLA BLEEDING I I ANY METHOD OBSERVATI 34484 ESSENCE BOWMAN, ON CARE 9 INPATIENT JOAQUINA H DISCHARGE MEDICINE ASSOC [facility] G0378 [facility] DUNN OBSERVATI 9 [facility] SERVICE PER HOUR THERAPEUT 25210 [facility] IC 9 [facility] IV PUSH EACH NEW DRUG THER 45871 [facility] PROPH/DX 9 [facility] NJX IV HOSPITAL HOSPITAL PUSH SINGLE/1S T SBST/DRUG PROTHROMB 84359 SHAUN DUNN IN TIME 9 [facility] BLOOD 67023 [facility] SULEMA COUNT 9 [facility]OSP[facility] MCRSCP W/MNL DIFRNTL WBC COUNT INITIAL 00291 DAVID NAYLOR 9 INPATIENT JOAQUINA H ON MEDICINE CARE/DAY ASSOC 70 MINUTES COMPREHEN [address] [place] [address]UN SIVE [address] [facility]OSPITAL PANEL INJECTION J2765 [facility] [address] [facility] AMIDE HCL UP TO 10 [place] [address] [facility] LIPASE [address] [place] [address] [place] [address] CNTRL TITI JAIRON, ABDOMEN 9 RADIOLOGY MALVIN D W/CONTRAS T MATERIAL CREATINE 23204 [facility] KINASE [address] [place] [address] HOSPITAL RADIOLOGI 47303 CNTR[facility] TITI TUBBSICK, C EXAM 9 RADIOLOGY CHELSEA D CHEST 2 VIEWS FRONTAL&[place] [address] [facility] TROPONIN 9 [facility] FARTUN CREATINE 19972 [facility] KINASE MB 9 [facility] H[facility] ONLY CT PELVIS [address] W/[facility] [place] [address] [place] AMYLASE [address] [place] [address] [place] [address] [place] INFUSION [address] [place] [address] HOSPITAL EACH ADDITIONA L HOUR COLLECTIO 19624 [facility] N VENOUS 9 [facility] HOSPITAL VENIPUNCT URE BLOOD 22931 [facility] SHAUN COUNT [address] [place] [address] HOSPITAL AUTOMATED HI OSM Q9963 [facility] CONTRST [address] [place] [address] HOSPITAL [phone] MG/ML IODINE CONC ML RADEX ABD 55927 [facility] 9 E[facility], AQT ABD RADIOLOGY STAS W/S/E/D K VIEWS 1 ASSOCIATE VIEW CH S PSC RADIOLOGI 14855 [facility] C EXAM 9 EIDER, CHEST 2 RADIOLOGY STAS VIEWS K FRONTAL&L ASSOCIATE ATERAL S PSC Encounters Encounter Start End Date Code Location Performer Type Date EMERGENCY 62530 [facility] 7 7 [facility] DEPARTMEN INC T VISIT MODERATE SEVERITY HOSPITAL [facility] 7 7 [facility] OUTPATIEN INC T EMERGENCY 25144 EDDIE KAPLANUSC DEPT 7 7 PHYSICIAN VISIT S, [facility] HIGH SEVERITY& THREAT FUNJ OFFICE 42892 OMAR WATSON OUTPATIEN 7 7 DEDRA MAXWELL T VISIT MD,[facility] 25 MINUTES OFFICE 33721 OMAR NELSON OUTPATIEN 7 7 Yunier MAXWELL VISIT ,[facility] 25 MINUTES OFFICE 98825 OMAR WATSON OUTPATIEN 7 7 DERDA MAXWELL T VISIT ,[facility] 25 MINUTES OFFICE 98020 OMAR OSORIO OUTPATIEN 6 6 FLOWER MAXWELL MD,[facility] MINUTES EMERGENCY 73988 [facility] 6 6 [facility] T VISIT MODERATE SEVERITY HOSPITAL [facility] - 6 6 [facility] OUTPATIEN INC T EMERGENCY 57355 EDDIE LEDESMA 6 6 PHYSICIAN U [facility] S, [facility] T VISIT HIGH/URGE NT SEVERITY EMERGENCY 81014 EDDIE LEDESMA 6 6 PHYSICIAN U [facility] S, [facility] T VISIT HIGH/URGE NT SEVERITY EMERGENCY 68731 [facility] 6 6 [facility] T VISIT LOW/MODER SEVERITY HOSPITAL [facility] - 6 6 [facility] OUTPATIEN INC T EMERGENCY 88532 EDDIE JOHNSON 6 6 PHYSICIAN RADHA [facility] S, [facility] T VISIT HIGH/URGE NT SEVERITY EMERGENCY 91021 [facility] 6 6 [facility] T VISIT LIMITED/M INOR PROB HOSPITAL [facility] - 6 6 [facility] OUTPATIEN [facility] T OFFICE 95593 TITI NICKL III OUTPATIEN 6 6 MEDICAL SAMANTHA T VISIT SERV 25 FOUNDATIO MINUTES N HOSPITAL [facility] - 6 6 [facility] OUTPATIEN INC T HOSPITAL [facility] - OTHER 6 6 MEM [facility]OS[facility] INC EMERGENCY 50688 [facility] 6 6 [facility] T VISIT LIMITED/M INOR PROB HOSPITAL [facility] - 6 6 [facility] OUTPATIEN [facility] T EMERGENCY 71824 EDDIE JOHNSON 6 6 PHYSICIAN RADHA NAVA S, [facility] T VISIT MODERATE SEVERITY HOSPITAL [facility] - 6 6 [facility] OUTPATIEN [facility] T OFFICE 62102 [facility] BURKE OUTPATIEN 6 6 PHYSICIAN GLORIA T VISIT S GROUP 25 MINUTES HOSPITAL [facility] - OTHER 6 6 [facility] INC OFFICE 54497 [facility] OUTPATI[facility] 6 6 PHYSICIAN GLORIA T VISIT S GROUP 15 MINUTES EMERGENCY 72398 TITI OMARALI GALI 6 6 MEDICAL DEPARTMEN SERV T VISIT FOUNDATIO MODERATE N SEVERITY EMERGENCY 43344 [facility] 6 6 [facility] T VISIT LOW/MODER SEVERITY HOSPITAL [facility] - 6 6 [facility] OUTPATIEN INC T EMERGENCY 76918 EDDIE GILLESPIE 6 6 PHYSICIAN DEPARTMEN S, [facility] T VISIT MODERATE SEVERITY OFFICE 78870 JULIO WALTON, OUTPATIEN 6 6 JR. MONTELONGO T NEW 30 ORTHOPAED MINUTES [facility] SPORT OFFICE 53372 [facility] BURKE OUTPATIEN 6 6 PHYSICIAN GLORIA T VISIT S GROUP 15 MINUTES HOSPITAL [facility] - OTHER 6 6 MEM [facility]P [facility] OFFICE 92882 [facility] 6 PHYSICIAN GLORIA T VISIT S GROUP 25 MINUTES HOSPITAL [facility] - OTHER 6 6 [facility] UNIVERSIT 6 6 Y INPATIENT [facility] H[facility]PITAL [facility] 6 Y INPATIENT HOSPITAL EMERGENCY 39823 [facility] DEPT 6 6 MEM [facility]OSP VISIT [facility] HIGH SEVERITY& THREAT [facility] - 6 6 [facility] OUTPATIEN [facility] OFFICE 76243 [facility] 6 6 PHYSICIAN GLORIA T VISIT S GROUP 15 MINUTES [facility] - 6 6 [facility] EMERGENCY 46074 EDDIE LEDESMA DEPT 6 6 PHYSICIAN U JAKE VISIT S, [facility] HIGH SEVERITY& THREAT [facility] - OTHER 6 6 [facility] - OTHER 6 6 [facility] - 6 6 [facility] OUTPATIEN [facility] - 6 6 [facility]PATIEN [facility] HOSPITAL [facility] - OTHER 6 6 [facility] OFFICE 40943 [facility] OUT[facility] 5 5 PHYSICIAN GLORIA T VISIT S GROUP 15 MINUTES HOSPITAL [facility] - 5 5 [facility] OUTPATIEN [facility] HOSPITAL [facility] - 5 5 [facility] OUTPATIEN [facility] OFFICE 82784 [facility] S[facility] TO [facility] T [address], [place] [address] 4 [facility] OFFICE 54001 [facility] 4 4 PENDING [facility] TO [facility] T VISIT RURAL 15 HEALTH MINUTES CLINIC, [facility] 4 4 [facility] Emergency CARLOS Briceño MD (ER) 3 15:27 3 17:16 [facility] CLINIC, [facility] 3 3 [facility] OFFICE 04565 [facility] 3 3 PENDING [facility] T VISIT RURAL 15 HEALTH MINUTES [facility] 3 3 [facility] OFF[facility] 26366 [facility] 3 3 [facility] T VISIT HEALTH 15 CLINIC MINUTES CR[facility]ICAL [facility], ACCESS [address] [place] [address] OFFICE 01136 [facility] 3 3 [facility] SLEEP ELIAZAR T VISIT AND REHA 15 MINUTES HOSPITAL UNIVERSIT - 3 3 [facility] CL[facility], [facility] 3 3 [facility] OFFICE 93063 [facility] 3 3 [facility] T VISIT HEALTH 15 CLINIC MINUTES EMERGENCY 47757 TITI ANNE 3 3 MEDICAL SET DEPARTMEN SERV T VISIT FOUNDATIO HIGH/URGE NT SEVERITY [facility] - 3 3 [facility] 3 3 [facility] T OFFICE 40339 [facility] 3 3 RURAL T VISIT HEALTH 15 CLINIC MINUTES [facility] 3 3 [facility] 2 2 [facility] OFFICE 81655 [facility] 2 2 RURAL T VISIT HEALTH 15 CLINIC MINUTES OFFICE 80339 [facility] OUTPATIEN 2 2 [facility] SLEEP ELIAZAR T VISIT AND REHA 15 MINUTES OFFICE 30837 CARDIOVAS LUCERO OUTPATIEN 2 2 ULAR & ANT T VISIT THORACIC 15 ASS MINUTES CRITICAL [facility], ACCESS 2 2 [facility] OFFICE 85705 [facility] OUTPATIEN 2 2 LT SLEEP ELIAZAR T VISIT AND REHA 15 MINUTES EMERGENCY 99750 [facility], 2 2 ANIMAL BREEDER [facility] SURESH T VISIT CO HOS MODERATE SEVERITY CRITICAL [facility], ACCESS 2 2 [facility] OFFICE 47936 [facility] OUTPATIEN 2 2 OSI OSI T VISIT 15 MINUTES OFFICE 77721 [facility] OUTPATIEN 1 1 [facility] SLEEP ELIAZAR T NEW 30 AND REHA MINUTES OFFICE 16550 [facility] OUTPATIEN 1 1 OSI OSI T VISIT 25 MINUTES CRITICAL SURES[facility] ACCESS 1 1 [facility] UNIVERSIT - 1 1 [facility] T OFFICE 28677 [place] [facility] OUTPATIEN 1 1 MEDICAL T NEW 30 SERV MINUTES FOUNDATIO OFFICE 08114 [facility] OUTPATIEN 1 1 OSI OSI T VISIT 40 MINUTES CRITICAL S[facility] ACCESS 1 1 [facility] SURESH - 1 1 [facility] T EMERGENCY 09599 [facility] DEPT 1 1 [facility] HIGH SEVERITY& THREAT FUNCJ EMERGENCY 94083 [facility] 1 1 [facility] T VISIT LIMITED/M INOR PROB CRITICAL SURESH ACCESS 1 1 [facility] EMERGENCY 01219 MOOKIE LEROY BAB DEPT 1 1 EMERGENCY VISIT SERVICES HIGH SEVERITY& THREAT [facility] 1 [facility] T EMERGENCY 87332 [facility] 1 1 [facility] T VISIT HIGH/URGE NT SEVERITY OFFICE 03175 CARDIOVAS LUCERO OUTPATIEN 1 1 ULAR & ANT T VISIT THORACIC 15 ASS [facility] [place] - 1 1 [facility] T OFFICE 77430 [facility] 0 0 OSI OSI T VISIT 15 MINUTES OFFICE 63144 MELENDEZ- MELENDEZ- OUTPATIEN 0 0 CROW CROW T NEW 45 GEOVANNY GEOVANNY MINUTES CRITICAL S[facility] ACCESS 0 0 [facility] CRITICAL SURESH ACCESS 0 0 [facility] OFFICE 93715 CARDIOVAS LUCERO OUTPATIEN 0 0 ULAR & ANT T NEW 60 THORACIC MINUTES [facility] - 0 0 [facility] T CRITICAL SURESH ACCESS 0 0 [facility] OFFICE 04201 [facility] BRONSON OUTPATIEN 0 0 MD T VISIT CONSULTIN 15 G SRV MINUTES OFFICE 15814 [facility] BRONSON OUTPATIEN 0 0 MD T VISIT CONSULTIN 15 G SRV MINUTES [facility] - 0 0 [facility] T OFFICE 87800 [facility] OUTPATIEN 0 0 , JAG M JAG M T VISIT 15 MINUTES OFFICE 14861 [facility] OUTPATIEN 0 0 , JAG M , JAG M T VISIT 15 MINUTES OFFICE 26640 [facility], [facility] 0 0 MD PANCHITO Treviño T VISIT CONSULTIN 15 G SRV PSC MINUTES [facility] T OFFICE 99863 [facility] BRONSON OUTPATIEN 0 0 MD T VISIT CONSULTIN 25 G SRV MINUTES HOSPITAL UNIVERSIT - 9 9 [facility] T EMERGENCY 81480 [facility] 9 9 [facility] T VISIT LOW/MODER SEVERITY EMERGENCY 30828 TITI TIJERINA, 9 9 [facility] T VISIT FOUNDATIO MODERATE SEVERITY EMERGENCY 92900 [facility] 9 9 [facility] T VISIT LOW/MODER SEVERITY CRITICAL SURES[facility] ACCESS 9 9 [facility] EMERGENCY 88871 SURESH ARRIOLA, 9 9 [facility] T VISIT MODERATE SEVERITY OFFICE 60829 [facility]Y [facility] 9 9 ELEANOR MAXWELL T VISIT 5 M.D.P.S.C MINUTES . HOSPITAL [facility] - 9 9 [facility] T OFFICE 80244 [facility] 9 9 MARCIO MAXWELL NEW 30 M.D.P.S.C MINUTES . EMERGENCY 80821 [facility] ROHINI, DEPT 9 9 DM GUY VISIT EMERGENCY A HIGH PHYS INC SEVERITY& THREAT FUN [facility]GENCY 65704 [facility] 9 [facility] T VISIT HIGH/URGE NT SEVERITY [facility] 9 9 [facility] T EMERGENCY 07103 MELBA TSAI, 9 9 [facility] T VISIT HIGH/URGE NT SEVERITY
--- OUTSIDE RECORDS SUMMARY | 2017-03-07 13:59 | External Medical Summary Rpt | CCD ---
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 Name Role Phone AHMED ADN, AHMED ADN Unavailable Unavailable AHMED, GUY A, Unavailable Unavailable AHMED, GUY A [facility], Unavailable Unavailable [facility] AIKAT SHA, AIKAT SHA Unavailable Unavailable ALHAJERI ABD, Unavailable Unavailable ALHAJERI ABD ALLRAN JR HANK, ALLRAN Unavailable Unavailable JR HANK DJIBOUTIAN AMBULETT & Unavailable Unavailable AMBULANC, DJIBOUTIAN AMBULETT & AMBULANC DJIBOUTIAN AMBULETT & Unavailable Unavailable AMBULANC, DJIBOUTIAN AMBULETT & AMBULANC DERIK MAYER, DERIK Unavailable Unavailable OMAR ROSENBERG Unavailable Unavailable OMAR MAXWELL, Unavailable Unavailable ,PSC, OMAR MAXWELL MD,PSC SKY HINSON Unavailable Unavailable JAKE BENSALEM DOMINIK, Unavailable Unavailable BENSALEM DOMINIK HAMILTON, HAMILTON Unavailable Unavailable HAMILTON ALL, HAMILTON ALL Unavailable Unavailable [facility] Unavailable Unavailable HOSPITAL, [facility] [place] Unavailable Unavailable [facility] Unavailable Unavailable SERVICE, [facility] Unavailable Unavailable [facility], [facility] Unavailable Unavailable CONSULTANTS O, [facility] AMARJIT TIJERINA, Unavailable Unavailable AMARJIT TIJERINA CLARKE Unavailable Unavailable FABRICE GATES, Unavailable Unavailable FABRICE MATSON [facility], Unavailable Unavailable [facility] HARDING BRONSON, HARDING BRONSON Unavailable Unavailable HARDING, PANCHITO A, Unavailable Unavailable HADRING, PANCHITO A [facility] Unavailable Unavailable ANESTHESIA [facility], [facility] Unavailable Unavailable AND REHA, [facility] AND REHA PAM RODRIGEZ Unavailable Unavailable NAZANIN REID, Unavailable Unavailable NAZANIN REID NISHI MICHAEL, NISHI Unavailable Unavailable JR MICHAEL DISANTIS TIANNA, Unavailable Unavailable DISANTIS TIANNA Mary MUÑOZ, Mary MUÑOZ Unavailable Unavailable T [facility], [facility] Unavailable Unavailable ELEANOR OTOOLE, Unavailable Unavailable ELEANOR OTOOLE GLORIA, BURKE Unavailable Unavailable GLORIA GAL THO, GAL THO Unavailable Unavailable PAWAN URBINA, Unavailable Unavailable PAWAN TALBERT, SERVANDO GALI Unavailable Unavailable MARIE HARVEY Unavailable Unavailable DEDRA DOWNS RHO, YARELI Unavailable Unavailable RHO YARELI, SOURAV G, Unavailable Unavailable YARELI, SOURAV G ROCKY BARROS, Unavailable Unavailable SPENCERCHNEBLAIRE HIDALGO, Unavailable Unavailable STAS Chance, STAS HIDALGO BARRY D, Unavailable Unavailable MALVIN DE LA O JASON A, Unavailable Unavailable SONJA CLEMONS [facility] Unavailable Unavailable INC, [facility] Unavailable Unavailable HOSPITAL P, [facility] P EVELIO GARNICA Unavailable Unavailable FLOWER VLADIMIR FRASER, Unavailable Unavailable VLADIMIR FRASER [facility], Unavailable Unavailable [facility] MILES MCKENNA Unavailable Unavailable JOAQUINA BOWMAN, Unavailable Unavailable JOAQUINA BOWMAN HUBER JUL Unavailable Unavailable CHING ASH, CHING Unavailable Unavailable ASH MITA II ELIAZAR, MITA Unavailable Unavailable II ELIAZAR MELENDEZ-CROW GEOVANNY, Unavailable Unavailable MELENDEZ-CROW GEOVANNY MELENDEZ-CROW GEOVANNY, Unavailable Unavailable MELENDEZ-CROW GEOVANNY [facility] Unavailable Unavailable CLINIC, [facility] SHAYNE BELLA CHA Unavailable Unavailable [facility] Unavailable Unavailable IMAGING ASS, [facility] DMITRY C, DMITRY C Unavailable [facility]available [facility] Un[facility], [facility] Unavailable Un[facility], [facility] Unavailable Unavailable HOLDING, [facility] LORNE JR DWI, LORNE Unavailable Unavailable JR DWI KRISTIAN ARRIOLA, Unavailable Unavailable KRISTIAN ARRIOLA ANT, SAVANNAH Unavailable Unavailable ANT [facility] Unavailable Unavailable SERVICES, [facility] Unavailable Unavailable ASSOCIAT, [facility] COST ENGINEER [facility] Unavailable Unavailable CO [facility], [facility] ITZ OLIVAREZ, Unavailable Unavailable ITZ OLIVAREZ MELISSA, SANTOS TORRES Unavailable Unavailable [facility] Unavailable Unavailable [facility], [facility], Unavailable Unavailable [facility] Unavailable Unavailable AMBULANCE SE, [facility] SE [facility] Unavailable Unavailable AMBULANCE SE, [facility]BULANCE SE [facility] Unavailable Unavailable HEALTH, [facility] NICKELS TIANNA, NICKELS Unavailable Unavailable TIANNA NICKL III SAMANTHA, NICKL Unavailable Unavailable III SAMANTHA O'KEEFFE SHA, Unavailable Unavailable O'KEEFFE SHA BRONSON HARDING MD Unavailable Unavailable CONSULTING SRV, BRONSON HARDING MD CONSULTING SRV [facility], Unavailable Unavailable PLL[facility], [facility] PELLANT FLOWER, PELLANT Unavailable Unavailable FLOWER RENUSCH, RENUSCH Unavailable Unavailable RENUSCH RADHA, RENUSCH Unavailable Unavailable RADHAThomas LUCERO ANT, LUCERO Unavailable Unavailable ANT MARCIO LUCERO, Unavailable Unavailable MARCIO LUCERO JR. JAM, Unavailable Unavailable JR. REGINALD WALTON SAMANTHA, GAN Unavailable Unavailable SAMANTHA ERIC MAT, Unavailable Unavailable ERIC MAT SOKAN BAB, SOKAN BAB Unavailable Unavailable SOTINGEANU JAKE, Unavailable Unavailable SOTINGEANU JA[facility] Un[facility] Un[facility]IAN SERVI, [facility] Unavailable Unavailable [facility] SCO, CLARKE Unavailable Unavailable SCO TAMAREN, FERMIN, Unavailable Unavailable TAMNILEN, FERMIN BORIS VERONIKA, BORIS Unavailable Unavailable VERONIKA MATTHEWS LUIS, MATTHEWS LUIS Unavailable Unavailable [facility] Unavailable Unavailable ASSIST, [facility], Unavailable Unavailable [facility] Unavailable Unavailable [facility] INTER VILLAFLOR OSI, Unavailable Unavailable VILLAFLOR OSI VILLAFLOR OSI, Unavailable Unavailable VILLAFLOR OSI VILLAFLOR, JAG M, Unavailable Unavailable VILLAFLOR, JAG M MIRIAM, Unavailable Unavailable MIRIAM WIGNAKUMAR, Unavailable Unavailable VELUPILLAI, WIGNAKUMAR, VELUPILLAI MISHA MONTELONGO, MISHA MONTELONGO Unavailable Unavailable JAMIE MAT, JAMIE MAT Unavailable Unavailable CHELSEA AYALA, Unavailable Unavailable CHELSEA AYALA Purpose Continuity of Care Document - 09-12-2008 through 2016 Problems Code Diagnosis DOS Provider Status I10 ESSENTIAL 10-29-2016 [facility], HYPERTENSIO [facility] N K861 OTHER 10-29-2016 [facility] CHRONIC [facility] PANCREATITI IMAGING ASS S R1032 LEFT LOWER 10-29-2016 [facility], PAIN PLLC R109 UNSPECIFIED 10-29-2016 [facility] ABDOMINAL [facility]ICAL PAIN IMAGING ASS M961 POSTLAMINEC 09-24-2016 LULU KUO MD,PSC NEC X81345 OIL WELL PUMPER 07-30-2016 OMAR CURRENT USE NIKHIL MAXWELL OPIATE ,PSC ANALGESIC M542 CERVICALGIA 04-01-2016 OMAR MAXWELL MD,PSC M545 LOW BACK 04-01-2016 OMAR PAIN MD ALISSA,PSC M6250 MUSCLE 04-01-2016 OMAR WASTING & ALISSA ATROPHY KENJI LOPEZ,[facility] UNSPECIFIED SITE J189 PNEUMONIA 03-31-2016 [facility] UNSPECIFIED PHYSICIANS, ORGANISM PLL J441 CHRONIC 03-31-2016 [facility] OBSTRUCTIVE PHYSICIANS, PULMONARY PLLC DZ W/EXACERBAT ION R05 COUGH 03-31-2016 [facility] R079 CHEST PAIN 03-31-2016 [facility] UNSPECIFIED [facility]ICAL IMAGING ASS Z720 TOBACCO USE 03-31-2016 [facility] INC G894 CHRONIC 03-25-2016 [facility] PAIN [facility] SYNDROME INC I2510 ASHD ROSEBUD 03-25-2016 [facility] CORONARY [facility] ARTERY W/O INC ANGINA PECTORIS J449 CHRONIC 03-25-2016 [facility] OBSTRUCTIVE [facility] PULMONARY INC DISEASE UNS M549 DORSALGIA 03-14-2016 [facility] UNSPECIFIED PHYSICIANS, [facility] Q00385 PERSONAL 03-14-2016 [facility] HISTORY OF [facility] NICOTINE INC DEPENDENCE K8590 ACUTE 02-21-2016 [facility] PANCREATITI SERV S WO FOUNDATION NECROSIS/IN FECTION UNSPEC I714 ABDOMINAL 02-01-2016 [facility] AORTIC MEDICAL ANEURYSM IMAGING ASS WITHOUT RUPTURE K838 OTHER 02-01-2016 [facility] SPECIFIED MEDICAL DISEASES OF IMAGING ASS BILIARY TRACT K868 OTHER 02-01-2016 [facility] SPECIFIED MEDICAL DISEASES OF IMAGING ASS PANCREAS E84456 ENCOUNTER 01-30-2016 [facility] FOR [facility] PREPROCEDUR INC AL LABORATORY EXAM G8929 OTHER 01-16-2016 [facility] CHRONIC PHYSICIANS PAIN GROUP M4694 UNS 01-16-2016 [facility] INFLAMMATOR PHYSICIANS Y GROUP SPONDYLOPAT HY THORACIC REGION B67790 OTHER LONG 01-16-2016 [facility] TERM [facility] CURRENT INC DRUG THERAPY L0390 CELLULITIS 01-08-2016 [facility] UNSPECIFIED PHYSICIANS GROUP M5090 CERVICAL 01-08-2016 [facility] DISC PHYSICIANS DISORDER GROUP UNS UNS CERVICAL REGION R1012 LEFT UPPER 10-22-2015 [facility] SERV PAIN FOUNDATION V21652 PAIN IN ARM 10-14-2015 [facility] UNSPECIFIED AMBULANCE SE R1010 UPPER 10-14-2015 [facility] ABDOMINAL [facility] PAIN INC UNSPECIFIED H312RXE COMP 10-14-2015 [facility] MEDICAL AMBULANCE CARE UNS SE INITIAL ENCNTR M4802 SPINAL 09-22-2015 [facility] STENOSIS PHYSICIANS CERVICAL GROUP REGION M9983 OTHER 09-11-2015 [facility] BIOMECHANIC PHYSICIANS AL LESIONS GROUP OF LUMBAR REGION K8050 CALCULUS BD 09-06-2015 [facility] W/O SERV CHOLANGITIS FOUNDATION /CHOLECYST W/O OBST K831 OBSTRUCTION 09-06-2015 [facility]ICAL OF BILE SERV DUCT FOUNDATION R188 OTHER 09-05-2015 [facility] ASCITES SERV FOUNDATION R740 NONSPECIFIC 09-05-2015 [facility] ELEVATION SERV LEVELS FOUNDATION TRANSAMINAS E & LDH K859 ACUTE 09-04-2015 [facility] PANCREAT[facility]I N PHYSICIAN S SERVI UNSPECIFIED E785 HYPERLIPIDE 09-03-2015 [facility] UNSPECIFIED K567 ILEUS 09-03-2015 [facility] I259 CHRONIC 09-02-2015 [facility] ISCHEMIC SERV HEART FOUNDATION DISEASE UNSPECIFIED K8020 CALCULUS GB 09-02-2015 [facility] W/O PHYSICIANS, CHOLECYSTIT PLLC IS W/O OBSTRUCTION R7989 OTHER SPEC 09-02-2015 [facility] ABNORMAL MEDICAL FINDINGS IMAGING ASS BLOOD CHEMISTRY I422 OTHER 08-18-2015 [facility] INC CARDIOMYOPA THY M488X6 OTHER 08-18-2015 [facility] SPECIFIED PHYSICIANS SPONDYLOPAT GROUP HIES LUMBAR REGION E860 DEHYDRATION 08-04-2015 [facility], PLLC R1033 PERIUMBILIC 08-04-2015 [facility] AL PAIN MEDICAL IMAGING ASS R110 NAUSEA 08-04-2015 [facility] AMBULANCE SE R112 NAUSEA WITH 08-04-2015 [facility] VOMITING PHYSICIANS, UNSPECIFIED PLLC Z955 PRESENCE OF 08-04-2015 [facility] IMPLANT & GRAFT O37728 SPONDYLOSIS 06-30-2015 [facility] W/O MEDICAL MYELOPATH/R IMAGING ASS ADICULOPATH Y LUMB RGN M5126 OTH 06-30-2015 [facility] INTERVERTEB MEDICAL RAL DISC IMAGING ASS DISPLACEMEN T LUMBAR RGN M546 PAIN IN 06-30-2015 [facility] THORACIC MEDICAL SPINE IMAGING ASS R0989 OT SPEC SX 05-25-2015 [place] & SIGNS MEDICAL INVLV THE IMAGING ASS CIRC & RESP SYS M4692 UNS 05-03-2015 [facility] INFLAMMATOR PHYSICIANS Y GROUP SPONDYLOPAT HY CERVICAL REGION M5030 OT 05-03-2015 [facility] CERVICAL PHYSICIANS DISC GROUP DEGENERATIO N UNS CERV REGION M9981 OTHER 05-03-2015 [facility] BIOMECHANIC PHYSICIANS AL LESIONS GROUP OF CERVICAL REGION R9089 OT 05-03-2015 [facility] ABNORMAL PHYSICIANS FIND ON DX GROUP IMAGING [facility] NERV SYS M5032 OT CERV 04-21-2015 [place] DISC MEDICAL DEGENERATIO IMAGING ASS N MID-CERVICA L REGION 28089 BARRETTS 08-06-2013 [facility] PSC 41761 ATROPHIC 08-06-2013 [facility] GASTRITIS [place] WITHOUT CLINIC PSC MENTION OF HEMORRHAGE 05433 ABDOMINAL 08-06-2013 [facility] PAIN, H UNSPECIFIED ANESTHESIA SITE PSC 496 CHRONIC 08-03-[address] [facility] OBSTRUCTION ASSOCIAT NEC 07402 SOLITARY 08-03-2013 [facility] PULMONARY [facility] NODULE ASSOCIAT 4414 ABDOMINAL 08-01-2013 [facility] ANEURYSM RADIOLOGY WITHOUT ASSOCIAT MENTION OF RUPTURE V4579 OTHER 08-01-2013 [facility] ACQUIRED RADIOLOGY ABSENCE OF ASSOCIAT ORGAN 40571 UNSPEC 07-21-2013 [facility] EPILEPSY [facility] WITHOUT RURAL MENTION HEALTH INTRACT EPILEPSY 4619 ACUTE 07-21-2013 [facility] SINUSITIS, [facility] UNSPECIFIED RURAL HEALTH 2724 OTHER AND 07-08-2013 [facility] UNSPECIFIED [facility] RURAL HYPERLIPIDE HEALTH ANGEL 4011 ESSENTIAL 07-08-2013 [facility] HYPERTENSIO [facility] N, BENIGN [facility] 37092 COR 07-08-2013 [facility] ATHEROSLERO [facility] UNSPEC RURAL TYPE VESSEL HEALTH ROSEBUD/LUPILLO T 66751 ACUT 07-06-2013 [facility] LAR INFARCT UNS CONSULTANTS SITE EPIS O CARE UNS 7862 COUGH 04-10-2013 [facility] 7842 SWELLING 03-09-2013 [facility] MASS OR RADIOLOGY LUMP IN ASSOCIAT HEAD AND NECK 3384 CHRONIC 02-17-2013 [facility] PAIN [facility] SYNDROME [facility] 7210 CERVICAL 02-17-2013 [facility] SPONDYLOSIS [facility] WITHOUT RURAL MYELOPATHY HEALTH 7231 CERVICALGIA 02-17-2013 [facility] 43652 HYPERTROPHY 10-13-2012 [facility] W/O UR OBST CLINIC & OTH LUTS 7804 DIZZINESS 10-13-2012 [facility] AND HEALTH GIDDINESS CLINIC 33802 INSOMNIA 10-13-2012 [facility] UNSPECIFIED HEALTH CLINIC 7224 DEGENERATIO 09-24-2012 [facility] N OF H SLEEP AND CERVICAL REHA INTERVERTEB RAL DISC 7234 BRACHIAL 09-24-2012 [facility] NEURITIS OR H SLEEP AND REHA RADICULITIS NOS V5417 AFTERCARE 09-24-2012 [facility]AL[facility] SERV TRAUMATIC FOUNDATIO FRACTURE VERTE[place]RAE V5489 OTHER 09-24-2012 [facility] AFTERCARE E8889 UNSPECIFIED 09-22-2012 [facility] 4400 ATHEROSCLER 09-16-2012 [place] [facility] OSIS OF SERV AORTA FOUNDATIO 63384 PATHOLOGIC 09-16-2012 [facility] FRACTURE OF SERV VERTEBRAE FOUNDATIO 90487 OTHER 09-16-2012 [facility] CONVULSIONS SERV FOUNDATIO 32995 CLOS FX 09-16-2012 [facility] VERTEBRA UNS LEVL W/O SP CRD INJURY 18775 CLOS FX C3 09-16-2012 [facility] [place] SERV W/O MENTION FOUNDATIO SP CRD INJURY 72261 SUBARACH 09-16-2012 [facility] SERV INJR W/O FOUNDATIO OPN ICW UNS SOC 64790 SUBARACH 09-16-2012 [facility] INJR W/O OPN ICW NO LOC 9582 SEC&RECURRE 09-16-2012 [facility] NT AMBULETT & HEMORRHAGE AMB[facility]ANC AN EARLY COMP TRAUMA V454 ARTHRODESIS 09-16-2012 [facility] 52420 OT FORM 09-15-2012 [facility] EPILEPSY & HEALTH RECUR CLINIC SEIZUR NO INTRACT EPIL 63295 OTHER 09-15-2012 [facility] DISEASES OF RADIOLOGY LUNG NOT ASSOCIAT ELSEWHERE CLASSIFIED 91006 SWELLING OF 09-15-2012 [facility] LIMB RADIOLOGY ASSOCIAT 36201 ALTERED 09-15-2012 [facility] MENTAL HEALTH STATUS CLINIC 920 CONTUSION 09-15-2012 [facility] OF FACE RADIOLOGY SCALP AND ASSOCIAT NECK EXCEPT EYE 7048 OTHER 05-21-2012 [facility] SPECIFIED HEALTH DISEASE OF CLINIC HAIR&HAIR FOLLICLES 6820 CELLULITIS 05-14-2012 [facility] OF FACE CLINIC 2811 OTHER 12-09-2011 [facility] VITAMIN B12 OSI DEFICIENCY ANEMIA 13377 OSTEOARTHRO 12-09-2011 [facility] S UNSPEC OSI WHETHER GEN/LOC UNSPEC SITE 41627 UNSPECIFIED 10-28-2011 [facility] DISORDER RADIOLOGY OF SHOULDER ASSOCIAT JOINT 9057 LATE EFF 10-28-2011 [facility], SPRAIN&STRA COST ENGINEER IN W/O [facility] MENTION HOS TENDON INJURY V4589 OTHER 10-28-2011 [facility], POSTSURGICA COST ENGINEER L STATUS [facility] OTHER HOS 08324 SINOATRIAL 10-07-2011 [facility] NODE OSI DYSFUNCTION 79649 OSTEOARTHRO 07-29-2011 [facility] S UNSPEC OSI WHETHER GEN/LOC SHLDR REGION 26386 PRECORDIAL 03-26-[address] MD CONSULTING SRV 2768 HYPOPOTASSE 12-10-2010 [facility] ANGEL OSI 586 UNSPECIFIED 12-10-2010 [facility] FAILURE V1551 PERSONAL 12-10-2010 [facility] HISTORY OF OSI TRAUMATIC FRACTURE 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 79981 CLOS FX C5 11-30-2010 [facility] W/O MENTION SP CRD INJURY 7028 OTHER 11-21-2010 [facility] SPECIFIED SERV DERMATOSES FOUNDATIO 05817 CLOSED 11-12-2010 [facility] FRACTURE OF OSI HEAD OF RADIUS 7384 ACQUIRED 11-02-2010 [facility] SPONDYLOLIS SERV THESIS FOUNDATIO 35219 CLOS FX C6 11-02-2010 [facility]RA PHYSICIANS W/O MENTION ASSIST SP CRD INJURY 4019 UNSPECIFIED 11-01-2010 [facility] HYPERTENSIO INTER N 4580 ORTHOSTATIC 11-01-2010 [facility] HYPOTENSION INTER E8869 OTH & UNS 11-01-2010 [facility] INTER SAME LEVEL 7802 SYNCOPE AND 10-31-2010 [facility] COLLAPSE SERV FOUNDATIO 77591 OTH NONSPC 10-31-2010 [facility] ABN FINDNG SERV RAD&OTH EXM FOUNDATIO BODY STRUCTURE V7281 PRE-OPERATI 10-31-2010 [facility] VE SERV CARDIOVASCU FOUNDATIO LAR EXAMINATION 2761 HYPOSMOLALI 10-30-2010 [facility] TY AND/OR HOSPITAL HYPONATREMI A 27759 SWELLING OR 10-30-2010 [facility] MASS OF RADIOLOGY EYE ASSOCIAT 26745 OCCLUSION&S 10-30-2010 [place] [facility] TENOS SERV CAROTID ART FOUNDATIO W/O MENTION INFARCT 31922 OCCLUSION&S 10-30-2010 [place] [facility] TENOS VERT SERV ART W/O FOUNDATIO MENTION INFARCT 64669 OTHER 10-30-2010 [place] [facility] DISEASES OF SERV NASAL FOUNDATIO CAVITY AND SINUSES 70191 DEGEN 10-30-2010 [place] [facility] LUMBAR/LUMB SERV OSACRAL FOUNDATIO INTERVERTEB RAL DISC 7226 DEGENERATIO 10-30-2010 [facility] INTERVADVENTHEALTH CELEBRATION RAL DISC SITE UNSPEC 7230 SPINAL 10-30-2010 [facility] [place] STENOSIS IN RADIOLOGY CERVICAL REGION 52367 OTHER 10-30-2010 [facility] FATIGUE 7840 HEADACHE 10-30-2010 [facility]AT 98383 SHORTNESS 10-30-2010 [facility] 47474 URINARY 10-30-[address] [facility] 7937 NONSPC ABN 10-30-2010 [facility] FINDNG RAD RADIOLOGY & OTH EXM ASSOCIAT MUSCULSKELT L SYS 9210 BLACK EYE, 10-30-2010 [facility] NOT RADIOLOGY OTHERWISE ASSOCIAT SPECIFIED 58364 HEAD 10-30-2010 [facility] INJURY, RADIOLOGY UNSPECIFIED ASSOCIAT 52569 INJURY OF 10-30-2010 [facility] FACE AND RADIOLOGY NECK OTHER ASSOCIAT AND UNSPECIFIED 73243 OTHER 10-30-2010 [facility] INJURY OF RADIOLOGY OTHER SITES ASSOCIAT OF TRUNK E8490 PLACE OF 10-30-2010 [facility] OCCURRENCE, HOSPITAL HOME E8888 OTHER FALL 10-30-2010 [facility] 7869 OTH 08-27-2010 [facility] INVOLVING RESPIRATORY SYSTEM&CHES T V5869 LONG-TERM 08-27-2010 [facility] (CURRENT) HOSPITAL USE OF OTHER MEDICATIONS 4739 UNSPECIFIED 08-17-2010 [facility] SINUSITIS [facility] 81174 HEMATURIA 08-17-2010 [facility] UNSPECIFIED [facility]ERGENCY SERVICES 24586 CHEST PAIN 08-17-2010 [facility] [place] UNSPECIFIED RADIOLOGY 65453 PAINFUL 08-17-2010 [facility] RESPIRATION EMERGENCY SERVICES 7944 NONSPECIFIC 08-17-2010 [facility] KIDNEY FUNCTION STUDY 7931 NONSPEC 07-09-2010 [facility] [place] FIND RAD RADIOLOGY OTH EXAM BODY STRUCT LUNG FIELD 9635 POISONING 04-19-2010 [facility] BY VITAMINS OSI NOT ELSEWHERE CLASSIFIED V0481 NEED 02-16-2010 [facility] PROP[facility] C VACCINATION &INOCULATIO N FLU 94578 LOSS OF 02-14-2010 [facility] WEIGHT RAMESH SMALL 72508 NAUSEA WITH 02-14-2010 [facility] VOMITING RAMESH SMALL 11421 TRANSIENT 01-27-2010 [facility] 4139 OTHER AND 12-25-2009 [facility] UNSPECIFIED ASSOCIATES ANGINA OF [place] 29154 SPONDYLOSIS 12-22-2009 [facility] UNSPEC OSI SITE W/O MENTION MYELOPATHY 2722 MIXED 12-20-2009 [facility] HYPERLIPIDE HOSPITAL ANGEL 3278 OTHER 12-07-2009 BRONSON ANDRADE MD SLEEP CONSULT[place]ORDERS SRV 44214 HYPERSOMNIA 12-07-2009 BRONSON HARDING MD UNSPECIFIED CONSULTING SRV 08540 DYSFNCT 12-05-2009 [facility] W/SLEEP HOSPITAL STGES/AROUS AL FRM SLEEP 72485 UNSPECIFIED 12-05-2009 [facility] V851 BODY MASS 12-05-2009 [facility] HOSP[facility] 19-24 ADULT 85190 GENERALIZED 12-04-2009 [facility], ANXIETY JAG M DISORDER V173 FAMILY 11-14-2009 BRONSON HARDING HISTORY OF ISCHEMIC CONSULTING HEART SRV PSC DISEASE 2720 PURE 11-07-2009 [facility] HYPERCHOLES [facility] 4920 EMPHYSEMATO 11-07-2009 [facility] [place] US BLEB RADIOLOGY 486 PNEUMONIA, 10-05-2009 [facility] ORGANISM RADIOLOGY UNSPECIFIED ASSOCIATES PSC 514 PULMONARY 07-03-2009 [facility] CONGESTION RADIOLOGY AND ASSOCIAT HYPOSTASIS 3699 UNSPECIFIED 04-14-2009 [facility] VISUAL HOSPITAL LOSS 24387 UNSPECIFIED 04-14-2009 [facility] HOSPITAL CONJUNCTIVI TIS 66645 PAIN IN OR 04-14-2009 [place] [facility] FOUNDATIO 32853 UNSPECIFIED 04-13-2009 [facility] SCLER[facility]IS HOSPITAL 7220 DISPLCMT 03-14-2009 [facility] [place] CERV RADI[facility] INTERVERT DISC WITHOUT MYELOPATHY 99159 DEGEN 03-14-2009 [facility]TE[facility] 7241 PAIN IN 03-14-2009 [facility] [place] THORACIC [facility] SPINE 2763 ALKALOSIS 01-14-2009 [facility] AR[facility] 91402 PEPTC ULCR 01-14-2009 [facility] ACUT/CHRN W/O HEMOR PERF/OBST 5770 ACUTE 01-14-2009 RICA ARRIOLAATITI KRISTIAN Faye S 85009 DEHYDRATION 10-09-2008 WIGNAKSMITA, VELUPILLAI 5771 CHRONIC 10-09-2008 WIG[facility]SM[facility], PANCREATITI VELUPILLAI S 90118 ABDOMINAL 10-09-2008 WIGNAKSMITA, PAIN, VELUPILLAI EPIGASTRIC 78306 UNSPECIFIED 10-08-2008 [facility] ESOPHAGITIS [facility] 74824 CHRON/UNS 10-08-2008 [facility] W/O MENTION OBST 92669 ACUT DUOD 10-08-2008 [facility] W/O MENTION ASSOC OBSTRUCTION 67227 UNS 10-08-2008 [facility]STR[facility]&G [facility] ASTRODUODIT [facility] IS W/O MENTION HEMORR 5362 PERSISTENT 10-08-2008 [facility] 5368 DYSPEPSIA&O 10-08-2008 [facility] FUNCTION STOMACH 5533 DIAPHRAGMAT 10-08-2008 [facility] [place] [facility] W/O RADIOLOGY MENTION OBSTRUCTION /GANGREN 18158 OTHER 09-14-2008 [facility] DISORDER OF [facility]OC[facility] INTESTINES [facility] Immunization Name Date Rout CVX Reac Dose Comm Prov Is Faci e tion ent ider Refu lity Give sed n IIV3 10-0 141 VILL No VILL 1-20 AFLO AFLO VACC 10 R R INE OSI SPLI T VIRU OSI S 0.5 ML DOSA GE IM USE Procedures Procedure [place] [address] [facility] B[facility] 36277 [facility] COUNT [facility] COMPLETE [facility] AUTO&AUTO DIFRNTL WBC COMPREHEN 19318 [facility] SIVE 7 [facility] [place] [address] [facility] & 7 MEDICAL PELVIS IMAGING W/[place] [address] [facility] LIPASE 7 [facility] [facility] INC BILIRUBIN 07940 NELSON NELSON DIRECT 7 MD ALISSA,[place] [address] NELSONVENITA NELSON PHOSPHORU 7 Thomas MAXWELL MD,[facility] INORGANIC COLLECTIO 35465 NELSONVENITA NELSON N VENOUS 7 ART MAXWELL MD,[facility] VENIPUNCT URE DRUG TEST 58629 NELSON NELSON PRSMV 7 SHANE MAXWELL MD,[facility] CHEMISTRY ANALYZERS COMPREHEN 59964 OMAR NELSON SIVE 7 CELIA MAXWELL MD,PSC PANEL BLOOD 39052 OMAR NELSON COUNT 7 EM MAXWELL MD,PSC AUTO&[place] [address] NELSONVENITA NELSON GLUTAMYLT 7 EMILY MAXWELL MD,[facility] GAMMA BLOOD 53062 OMAR PELLANT COUNT 6 FLOWER MAXWELL MD,PSC AUTO&AUTO DIFRNTL WBC COMPREHEN 82626 OMAR PELLANT SIVE 6 FLOWER MAXWELL MD,[facility] PANEL DRUG TEST G0479 NELSON PELLANT 6 FLOWER MAXWELL MD,[facility] NSTRUMENT [place] [address] NELSON PELLANT GLUTAMYLT 6 FLOWER MAXWELL MD,[facility] [place] [address] NELSON PELLANT TESTOSTER 6 FLOWER MAXWELL MD,PSC COLLECTIO 56341 NELSON PELLANT N VENOUS 6 FLOWER MAXWELL MD,PSC VENIPUNCT URE PRESSURIZ 47044 [facility] BERGMAN ED/NONPRE 6 [facility] SSURIZED [place] [address] [facility]ERGM[facility] INFUSION 6 [facility] THERAPY/P INC INC ROPHYLAXI S /DX 1ST TO 1 [place] [address] [facility] INFUSION 6 [facility] THER INC INC PROPH ADDL SEQUENTIA L TO 1 HR RADIOLOGI 25940 [facility] NAZANIN C EXAM 6 MEDICAL REID CHEST 2 IMAGING VIEWS ASS FRONTAL&L ATERAL COMPREHEN 02192 [facility]ERGM[facility] SIVE 6 [facility] METABOLIC INC INC PANEL BLOOD 52352 [facility]GM[facility] COUNT 6 [facility] COMPLETE INC INC AUTO&AUTO DIFRNTL WBC THERAPEUT 57294 [facility]GM[facility] IC 6 [facility] PROPHYLAC INC INC TIC/DX INJECTION SUBQ/IM INJECTION J2405 [facility] BERGMAN 6 [facility] ONDANSETR INC INC ON HCL PER 1 MG THERAPEUT 46736 [facility]GM[facility] IC 6 [facility] PROPHYLAC INC INC TIC/DX INJECTION SUBQ/IM LOCM Q9967 [facility]ERGMAN [phone] 6 [facility] MG/ML INC [place] [address] [facility] BERGMAN ANGIOGRAP 6 [facility] HY INC INC ABDOMEN W/CONTRAS T/[place] [address] ESS[facility] ALL ABDOMEN 6 MEDICAL W/O IMAGING CONTRAST ASS MATERIAL BASIC 07653 PACHECO PACHECO METABOLIC 6 [facility] PANEL INC INC CALCIUM TOTAL COLLECTIO 16308 [facility] BERGMAN N VENOUS 6 [facility] [place] [address] PACHECO PACHECO RETROPERI 6 [facility] TONEAL INC [place] [address] ESSENCE [facility] ALL RETROPERI 6 MEDICAL TONEAL IMAGING REAL TIME ASS W/IMAGE LIMITED DRUG TST G0477 [facility]ERGM[facility] PRESUMP;C 6 [facility] PBL BEING INC INC READ DC OPT OBV ONLY GROUND A0425 SURESH PRINCE MILEAGE [address] [place] [address] PER AMBULANCE AMBULANCE STATUTE SE SE MILE AMBULANCE A0429 [facility] PR[facility] SERVICE [address] [place] [address] AMBULANCE AMBULANCE EMERGENCY SE SE TRANSPORT AMBULANCE A0429 [facility] PR[facility] SERVICE [address] [place] [address] AMBULANCE AMBULANCE EMERGENCY SE SE TRANSPORT THERAPEUT 11621 [facility] BERGMAN IC 6 [facility] PROPHYLAC INC INC TIC/DX INJECTION SUBQ/IM GROUND A0425 SURESH PRINCE MILEAGE [address] [place] [address] PER AMBULANCE AMBULANCE STATUTE SE SE MILE DRUG TST G0477 [facility] BERGMAN PRESUMP;C 6 [facility] PBL BEING INC INC READ DC OPT OBV ONLY DRUG TST G0477 [facility] BERGMAN PRESUMP;C 6 [facility] PBL BEING INC INC READ DC OPT OBV ONLY HOSPITAL [address] [facility] 6 DM DAY PHYSICIAN MANAGEMEN SERVI T > 30 MIN SBSQ 04032 [facility] 6 DM CARE/DAY PHYSICIAN 25 SERVI MINUTES SBSQ 16019 [facility] 6 DM CARE/DAY PHYSICIAN 25 SERVI MINUTES ERCP 54028 [place] NICKL III STENT 6 MEDICAL SAMANTHA PLACEMENT SERV FOUNDATIO BILIARY/P N ANCREATIC DUCT CMBN NDSC 52315 [place] TRICIA CATHJ 6 MEDICAL SCO BILIARY&P SERV NCRTC FOUNDATIO DUCTAL N SYS RS&I DILATION [id number] [facility] COM BILE 6 Y Y DUCT [facility] DE[facility] ASHLEY/ART OP ENDO DIL PANC [id number] [facility] DUCT [address] [facility] DEV ASHLEY/ART OPENING ENDO EXCISION [id number] [facility] BILE [address] [facility] ASHLEY/ART [place] [address] [place] MELISSA ABDOMEN 6 MEDICAL W/O & SERV W/CONTRAS FOUNDATIO T N MATERIAL SBSQ 28435 [place] [address] DM CARE/DAY PHYSICIAN 25 SERVI MINUTES INITIAL 55052 [facility] 6 MEDICAL CARE/DAY SERV 30 FOUNDATIO MINUTES N SBSQ 08685 [place] [address] DM CARE/DAY PHYSICIAN 35 [place] [address] [place] YA ABDOMINAL 6 MEDICAL GLORIA REAL SERV TIME FOUNDATIO W/IMAGE N LIMITED INITIAL 15988 [facility] 6 DM MICHAEL CARE/DAY PHYSICIAN 70 SERVI MINUTES AMBULANCE A0428 [facility] SERVICE 6 AMBULANCE AMBULANCE [facility] SERVICE SERVICE [place] [address] [facility] BERGMAN LIPASE 6 [facility] INC INC BLOOD 37464 [facility] BERGM[facility] COUNT 6 [facility] COMPLETE INC INC AUTO&AUTO DIFRNTL WBC COMPREHEN 01184 [facility]ERGMAN SIVE 6 [facility] METABOLIC INC INC PANEL LOCM Q9967 [facility] BERGMAN [phone] 6 [facility] MG/ML INC INC IODINE CONCENTRA TION PER ML GROUND A0425 [facility] 6 AMBULANCE AMBULANCE PER SERVICE SERVICE STATUTE MILE AMBULANCE A0429 SURES[facility] PRINCE SERVICE 6 [facility] AMBULANCE AMBULANCE EMERGENCY SE SE TRANSPORT THER 22654 PAC[facility] BERGMAN PROPH/DX 6 [facility] NJX EA INC INC SEQL IV P[place] SBST/[place] [address] PAC[facility]CO BERGMAN AMYLASE 6 [place] [address] [facility] BERGM[facility] INFUSION 6 [facility] THERAPY/P INC INC ROPHYLAXI S /DX 1ST TO 1 HR THERAPEUT 70453 [facility] B[facility] IC 6 [facility] INJECTION [place] [address] [facility] ABDOMEN & 6 MEDICAL JAKE PELVIS IMAGING W/CONTRAS ASS T MATERIAL INJECTION J2405 [facility] BERGMAN 6 [facility] ONDANSETR INC INC ON HCL PER 1 MG BASIC 54732 [facility] BERGM[facility] METABOLIC 6 [facility] PANEL INC INC CALCIUM TOTAL MRI 13295 [facility] ABDOMEN 6 MEDICAL REID W/[place] [address] [facility] BERGMAN FREE 6 [facility] [place] [address] [facility] BERGMAN THYROID 6 [facility] STIMULATI INC INC NG HORMONE TSH BLOOD 12924 [facility]ERGMAN COUNT 6 [facility] COMPLETE INC INC AUTO&AUTO DIFRNTL WBC LIPID 05351 [facility] BER[facility] PANEL 6 [facility] INC HEPATIC 92776 [facility] BERGMAN FUNCTION 6 [facility] PANEL INC INC COLLECTIO 45868 [facility] BERGMAN N VENOUS 6 [facility] BLOOD INC INC VENIPUNCT URE 3D 73147 ESSENCE BACK RENDERING 6 MEDICAL REID W/INTERP IMAGING & ASS POSTPROCE SS SUPERVISI ON DRUG TST G0477 [facility] BERGM[facility] PRESUMP;C 6 [facility] PBL BEING INC INC READ DC OPT OBV ONLY ECG 72601 [facility]ERGMAN ROUTINE 6 [facility] ECG INC INC W/LEAST 12 LDS TRCG ONLY W/O I&R DRUG TEST G0481 [facility]ERGMAN DEFINITV [address] [facility] [address] [address] [facility] [address] ID INC INC METH P DAY 8-14 DRUG CL CV STRS 13328 [facility] 6 PHYSICIAN XERS&/OR S GROUP RX CONT ECG W/O I&R MYOCARDIA 23353 [facility] ALL L SPECT 6 MEDICAL MULTIPLE IMAGING STUDIES ASS SBSQ 24146 [place] [address] PHYSICIAN GLORIA CARE/DAY S GROUP 15 MINUTES INITIAL 30038 [place] [address] PHYSICIAN GLORIA CARE/DAY S GROUP [address] [place] [address] [facility] ALL ABDOMEN & 6 MEDICAL PELVIS IMAGING W/CONTRAS ASS T MATERIAL ECG 85528 [facility] PRADHAN JR ROUTINE 6 [facility] W/LEAST P 12 LDS I&R ONLY ECG 03499 [facility] PRADHAN JR ROUTINE 6 [facility] W/LEAST P 12 LDS I&R ONLY INITIAL 51722 [facility] 6 PHYSICIAN HANK CARE/DAY S GROUP 50 MINUTES GROUND A0425 [facility] PRINCE MILEAGE [address] [place] [address] PER AMBULANCE AMBULANCE STATUTE SE SE MILE AMB A0427 [facility] PRINCE SERVICE [address] [place] [address] ALS AMBULANCE AMBULANCE EMERGENCY [place] [address] [facility] [place] ALL ABDOMEN & 6 MEDICAL PELVIS IMAGING W/O ASS CONTRAST MATERIAL DRUG TST G0483 [facility]ERGMAN DEFINITV [address] [facility] [address] ID INC INC METH P DAY 22/MORE DR CL DRUG TST G0477 [facility] BERGMAN PRESUMP;C 6 [facility] PBL BEING INC INC READ DC OPT OBV ONLY 3D 80422 ESSENCE BACK RENDERING 6 MEDICAL REID W/INTERP IMAGING & ASS POSTPROCE SS SUPERVISI [place] MRI [address] [facility] SPINAL 6 MEDICAL REID CANAL IMAGING THORACIC ASS W/O CONTRAST MATRL MRI [address] [facility] BACK SPINAL 6 MEDICAL REID CANAL IMAGING LUMBAR ASS W/O CONTRAST MATERIAL DRUG TST G0477 [facility] BERGMAN PRESUMP;C 6 [facility] PBL BEING INC INC READ DC OPT OBV ONLY F2 GENE 98393 [employer] ANALYSIS 6 , [employer] , [facility] 66841G >A VARIANT F5 93138 [employer] COAGULATI [employer] , [employer] ON FACTOR V ANAL LEIDEN VARIANT MTHFR 43201 [employer] GENE Cuciniale , [facility] , [facility] ANALYSIS COMMON VARIANTS ECG 94748 [facility] BERGMAN ROUTINE 6 [facility] ECG INC INC W/LEAST 12 LDS TRCG ONLY W/O I&R DUPLEX 98145 [place] ALL SCAN 6 MEDICAL EXTRACRAN IMAGING IAL ART ASS COMPL BI STUDY DRUG TST G0477 [facility] BERGMAN PRESUMP;C 6 [facility] PBL BEING INC INC READ DC OPT OBV ONLY THERAPEUT 84364 [facility] BERGMAN IC PX 1/> 5 [facility] AREAS INC INC EACH 15 MIN EXERCISES APPLICATI 03231 [facility] BERGM[facility] ON 5 [facility] MODALITY INC INC 1/> AREAS HOT/COLD PACKS APPL 31160 [facility] BERGMAN MODALITY 5 [facility] 1/> AREAS INC INC ELEC STIMJ UNATTENDE D E-STIM G0283 [facility] B[facility] 1/> AREAS 5 [facility] OTH THAN INC INC WND CARE PART TX PLAN MANUAL 80620 [facility] THERAPY 5 [facility] TQS 1/> INC INC REGIONS EACH 15 MINUTES E-STIM G0283 [facility] BERGMAN 1/> AREAS 5 [facility] OTH THAN INC INC WND CARE PART TX PLAN CARRY MOV G8984 [facility] HANDLNG 5 [facility] OBJ FCN INC INC LERMA CUR TX REP INTRVL APPL 58052 [facility] BERGM[facility] MODALITY 5 [facility] 1/> AREAS INC INC ELEC STIMJ UNATTENDE D PHYSICAL 68279 [facility] B[facility] THERAPY 5 [facility] EVALUATIO INC INC N THERAPEUT 90366 [facility] BERGM[facility] IC PX 1/> 5 [facility] AREAS INC INC EACH 15 MIN EXERCISES CAR MOV G8985 [facility] BER[facility] HDLG OBJ 5 [facility] PROJ GOAL INC INC TX OUTSET&RE P INTRVL 3D 97744 [facility] BERGM[facility] RENDERING 5 [facility] W/INTERP INC INC & POSTPROCE SS SUPERVISI ON MRI 72651 [facility]ERGM[facility] SPINAL 5 [facility] CANAL INC INC CERVICAL W/O CONTRAST MATRL ANES 75960 RIVERA GAN UPPER GI 4 LTH SAMANTHA ENDOSCOPY ANESTHESI [place]OXIM[place] [address] [place] SURG 4 [facility] PSC GROSS&GLORIA ROSCOPIC EXAM SPECIAL 18629 GUDELIA ESCALANTE STAIN 4 [facility] 1 CLINIC MICROORGA PSC NISMS I&R RADEX ABD 30433 [facility] COMPL 4 FLOWER AQT ABD RADIOLOGY W/S/E/D ASSOCIAT VIE[place] [address] [place] [address] [facility] ABDOMEN & 4 FLOWER PELVIS RADIOLOGY W/CONTRAS ASSOCIAT T MATERIAL ECHO 75859 [facility] ERIC TTHRC R-T 4 CULAR MAT 2D CONSULTAN W/WOM-MOD TS O E COMPL SPEC&COLR D CATH PLMT 64978 [facility] ER[facility] L HRT & 4 CULAR MAT ARTS CONSULTAN W/NJX & TS O ANGIO IMG S&I PRQ 15976 [facility] TRLUML 4 CULAR MAT CORONARY CONSULTAN STENT TS O W/ANGIO ONE ART/BRNCH INITIAL 11985 [facility] 4 CULAR MAT CARE/DAY CONSULTAN 70 TS O MINUTES RADIOLOGI 05669 [place] NAZANIN C 3 MEDICAL REID EXAMINATI IMAGING ON CHEST ASS SINGLE VIEW FRONTAL RADIOLOGI 16805 [facility] [place] YARELI C EXAM 3 RADIOLOGY RHO CHEST 2 VIEWS FRONTAL&L ATERAL RADIOLOGI 67325 [facility] C EXAM 3 FLOWER CHEST 2 RADIOLOGY VIEWS ASSOCIAT FRONTAL&[place] [address] [facility] HEAD/BRAI 3 FLOWER N W/O RADIOLOGY CONTRAST ASSOCIAT MATERIAL ELECTROEN 88683 MHC INC, MHC INC, CEPHALOGR 3 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 AM W/REC SURESH PRINCE AWAKE&ASL CO HOS CO HOS EEP RADEX 06396 [facility] SPINE 3 Y Y CERVICAL [facility] [address] [place] [address] [facility] HEAD/BRAI 3 Y Y N W/O HOSPITAL HOSPITAL CONTRAST MATERIAL RADEX 34882 [facility] SPINE 3 Y Y CERVICAL [facility] [address] [place] [address] [facility] THORACIC 3 Y Y SPINE W/O HOSPITAL HOSPITAL CONTRAST MATERIAL CT LUMBAR 02517 [facility] SPINE 3 Y Y W/[place] [address] [facility] CERVICAL 3 Y Y SPINE W/O HOSPITAL HOSPITAL CONTRAST MATERIAL INJECTION J1953 [facility] [address] [facility] ETAM 10 MG INFUSION J7050 [facility] NORMAL [address] [facility] SOLUTION 250 CC THERAPEUT 81930 [facility] IC [address] [facility] IV PUSH EACH NEW DRUG INJECTION J2270 [facility] MORPHINE [address] [facility] UP [place] 10 [place] [address] [facility] INFUSION 3 Y Y THERAPY/P [facility] ROPHYLAXI S /DX 1ST TO 1 HR AMB A0427 DJIBOUTIAN DJIBOUTIAN SERVICE 3 AMBULETT AMBULETT ALS & & EMERGENCY AMBULANC AMBULANC TRANSPORT LEVEL 1 GROUND A0425 DJIBOUTIAN DJIBOUTIAN MILEAGE 3 AMBULETT AMBULETT PER & & STATUTE AMBULANC AMBULANC MILE ECG 13073 [facility] AD[facility] ROUTINE 3 RURAL ECG HEALTH W/LEAST CLINIC 12 LDS I&[place] [address] ERVIN MATSON CERVICAL 3 JESSI SPINE W/O RADIOLOGY CONTRAST ASSOCIAT MATERIAL RADIOLOGI 49283 ERVIN MATSON C EXAM 3 JESSI CHEST 2 RADIOLOGY VIEWS ASSOCIAT FRONTAL&L ATERAL CT ORBIT 32475 ERVIN MATSON SELLA/POS 3 JESSI T RADIOLOGY FOSSA/EAR ASSOCIAT W/[place] [address] ERVIN MATSON HEAD/BRAI 3 JESSI N W/O RADIOLOGY CONTRAST ASSOCIAT MATERIAL FLUOR 50907 [facility] MITA II NEEDLE/CA 3 LTH SLEEP ELIAZAR TH AND REHA SPINE/PAR ASPINAL DX/THER ADDON MODERATE 50301 [facility] MITA II SEDATJ 3 LTH SLEEP ELIAZAR SAME AND REHA PHYS/QHP 5/>YRS INIT 30 MIN NJX 85317 [facility] MITA II DX/THER 3 LTH SLEEP ELIAZAR SBST AND REHA EPIDURAL/ SUBRACH CERV/THOR ACIC NJX 32251 [facility] DX/THER 3 [facility] SBST EPIDURAL/ SUBRACH CERV/THOR ACIC LOCM Q9966 [facility] 200-299 3 [facility] MG/ML IODINE CONCENTRA TION PER ML MODERATE 61691 COMMONWEA MITA II SEDATJ 3 LTH SLEEP ELIAZAR SAME AND REHA PHYS/QHP 5/>YRS INIT 30 MIN FLUOR 32459 [facility] NEEDLE/CA 3 [facility] SPINE/PAR ASPINAL DX/THER ADDON TENS E0730 EMPI INC EMPI INC DEVICE 3 4/MORE LEADS MULTI NERVE STIMULATI ON TENS E0730 EMPI INC EMPI INC DEVICE 2 4/MORE LEADS MULTI NERVE STIMULATI ON RADIOLOGI 60446 ERVIN MATSON C EXAM 2 JESSI CHEST 2 RADIOLOGY VIEWS ASSOCIAT FRONTAL&L ATERAL FLUOR 95699 COMMONWEA MITA II NEEDLE/CA 2 LTH SLEEP ELIAZAR TH AND REHA SPINE/PAR ASPINAL DX/THER ADDON NJX 65686 COMMON[facility] MITA II DX/THER 2 LTH SLEEP ELIAZAR SBST AND REHA EPIDURAL/ SUBRACH CERV/THOR ACIC THERAPEUT 47876 VILLAFLOR VILLAFLOR IC 2 OSI OSI PROPHYLAC TIC/DX INJECTION SUBQ/IM INJECTION J1030 VILLAFLOR VILLAFLOR 2 OSI OSI METHYLPRE DNISOLONE ACETATE 40 MG INJECTION J3420 VILLAFLOR VILLAFLOR VIT B-12 2 OSI OSI CYANOCOBA KAREN TO 1000 MCG INJECTION J1885 MHC INC, MHC INC, 2 COST 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 ENGINEER KETOROLAC SURESH SURESH CO HOS CO HOS TROMETHAM INE PER 15 MG RADEX 01422 [facility] 2 EIDER FIORELLA COMPLETE RADIOLOGY MINIMUM 2 ASSOCIAT VIEWS INJECTION J1030 VILLAFLOR VILLAFLOR 2 OSI OSI METHYLPRE DNISOLONE ACETATE 40 MG THERAPEUT 53013 VILLAFLOR VILLAFLOR IC 2 OSI OSI PROPHYLAC TIC/DX INJECTION SUBQ/IM INJECTION J3420 VILLAFLOR VILLAFLOR VIT B-12 2 OSI OSI CYANOCOBA KAREN TO 1000 MCG INJECTION J3420 VILLAFLOR VILLAFLOR VIT B-12 2 OSI OSI CYANOCOBA KAREN TO 1000 MCG THERAPEUT 18773 VILLAFLOR VILLAFLOR IC 2 OSI OSI PROPHYLAC TIC/DX INJECTION SUBQ/IM INJECTION J1030 VILLAFLOR VILLAFLOR 2 OSI OSI METHYLPRE DNISOLONE ACETATE 40 MG NJX 52584 RIVERA FAN II DX/THER 2 LTH SLEEP ELIAZAR SBST AND REHA EPIDURAL/ SUBRACH CERV/THOR ACIC MODERATE 38481 RIVER[facility] FAN II SEDATJ 2 LTH SLEEP ELIAZAR SAME AND REHA PHYS/QHP 5/>YRS INIT 30 MIN ECG 47679 BRONSON HARDING HARDING BRONSON ROUTINE 1 MD ECG CONSULTIN W/LEAST G SRV 12 LDS I&R ONLY INJECTION J3420 VILLAFLOR VILLAFLOR VIT B-12 1 OSI OSI CYANOCOBA KAREN TO 1000 MCG THERAPEUT 76134 VILLAFLOR VILLAFLOR IC 1 OSI OSI PROPHYLAC TIC/DX INJECTION SUBQ/IM THERAPEUT 40979 VILLAFLOR VILLAFLOR IC 1 OSI OSI PROPHYLAC TIC/DX INJECTION SUBQ/IM INJECTION J3420 VILLAFLOR VILLAFLOR VIT B-12 1 OSI OSI CYANOCOBA KAREN TO 1000 MCG RENAL 81692 SURESH PRINCE FUNCTION 1 CO [facility] COLLECTIO 13029 SURESH PRINCE N VENOUS 1 [facility] VENIPUNCT URE RADEX 22323 [facility] SPINE [address] [facility] 2 OR 3 VIEWS NASOPHARY 40515 [place] GAL THO NGOSCOPY 1 MEDICAL W/ENDOSCO SERV PE SPX FOUNDATIO ELECTROLY 78957 SURESH PRICNE TE PANEL 1 [facility] COLLECTIO 19237 SURESH PRINCE N VENOUS 1 [facility] VENIPUNCT URE RADEX 87350 [place] DISANTIS SPINE 1 MEDICAL TIANNA CERVICAL SERV 2 OR 3 FOUNDATIO VIEWS OPTX&/RDC 64600 [facility] TJ VRT 1 [place] ASH FX&/DISLC PHYSICIAN PST 1 S ASSIST VRT SGM EA ARTHRODES 52436 [facility] IS 1 [place] ASH PST/PSTLA PHYSICIAN T S ASSIST CERVICAL BELW C2 SGM ARTHRODES 94526 [facility] IS 1 [place] ASH POSTERIOR PHYSICIAN /POSTEROL S ASSIST ATERAL EA ADDL OPTX&/RDC 05623 [facility] TJ VRT 1 [place] ASH FX&/DISLC PHYSICIAN PST 1 S ASSIST VRT SGM CR POSTERIOR 11324 [facility] 1 [place] ASH SEGMENTAL PHYSICIAN S ASSIST INSTRUMEN TATION 3-6 VRT SEG INSJ 13590 [place] MARIE NON-TUNNE 1 MEDICAL [facility] LED SERV CENTRAL FOUNDATIO VENOUS CATH AGE 5 YR/> ARTL 61534 [place] MARIE CATHJ/CAN 1 MEDICAL DEDRA NULJ SERV MNTR/FORBES FOUNDATIO SFUSION SPX PRQ ANESTHESI 05599 [place] MARIE A 1 MEDICAL DEDRA EXTENSIVE SERV SPINE & FOUNDATIO SPINAL CORD RADEX 96223 [place] CABRAL JAM SPINE 1 1 MEDICAL VIEW SERV SPECIFY FOUNDATIO LEVEL SBSQ 70315 [facility] 1 Y OF N CARLITOS CARE/DAY [place] 25 INTER MINUTES INITIAL 20846 [place] [facility] 1 MEDICAL [facility] CARE/DAY SERV 30 FOUNDATIO MINUTES ELECTROEN 32842 [place] BENSAL[place] CEPHALOGR 1 MEDICAL DOMINIK AM W/REC SERV AWAKE&GILBERT FOUNDATIO WSY ECHO 31917 [place] DERIK TTHRC R-T 1 MEDICAL ALI 2D SERV W/WOM-MOD FOUNDATIO E COMPL SPEC&COLR D INITIAL 88101 [place] [facility] 1 MEDICAL CARE/DAY SERV 70 FOUNDATIO MINUTES COLLECTIO 68381 SURESH PRINCE N VENOUS [address] [facility] [address] SURESH PRINCE INFUSION 1 CO CO HYDRATION [facility] HOSPITAL INITIAL 31 MIN-1 HOUR ECG 83502 [place] DMITRY C ROUTINE 1 MEDICAL ECG SERV W/LEAST FOUNDATIO 12 LDS I&R ONLY BLOOD 21561 SURESH PRINCE COUNT [address] [facility] MCRSCP W/[place] [address] S[facility]H PRINCE INFUSION 1 CO CO THERAPY/P HOSPITAL HOSPITAL ROPHYLAXI S /DX 1[address] [place] [address] [place] [address] [place] NICKELS THORACIC 1 MEDICAL TIANNA SPINE W/[place] [address] SURESH PRINCE HEAD/BRAI 1 CO CO N W/[place] [address] SURESH PRINCE MAXILLOFA 1 CO CO CIAL W/[place] [address] SURESH PRINCE CERVICAL 1 CO CO SPINE W/O HOSPITAL HOSPITAL CONTRAST MATERIAL MRI 97650 [facility] [place] SHAYNE SPINAL 1 RADIOLOGY HANK CANAL CERVICAL W/[place] [address] TITI HARRISONHAFARHANRI ANGIOGRAP 1 MEDICAL ABD HY NECK SERV W/CONTRAS FOUNDATIO T/NONCONT RAST CT LUMBAR 62018 TITI NICKELS SPINE 1 MEDICAL TIANNA W/O SERV CONTRAST FOUNDATIO MATERIAL COMPREHEN 88461 SURESHANDREINA PRINCE SIVE 1 CO [facility] HOSPITAL PANEL BLOOD 15050 SURESH PRINCE COUNT 1 [facility] AUTO&AUTO DIFRNTL WBC THER 67869 SURESH SURESH PROPH/DX 1 CO CO NJX [facility] PUSH SINGLE/1S T SBST/DRUG DEMO&/GLENNY 98359 [place] L OF PT 1 [facility] AERSL GEN/NEB/I NHLR/IP ECG 87395 [place] ROUTINE 1 [facility] W/LEAST 12 LDS TRCG ONLY W/O I&[place] [address] [place] TROPONIN 1 [facility] FARTUN BLOOD 90527 [place] COUNT 1 [facility] AUTO&AUTO DIFRNTL WBC COMPREHEN 99327 [place] SIVE 1 [facility] PANEL RADIOLOGI 16990 [place] C EXAM 1 [facility] CHEST [address] [place] [address] HOSPITAL VIEWS FRONTAL&[place] [address] [place] INFUSION 1 [facility] THERAPY/P HOSPITAL HOSPITAL ROPHYLAXI S /DX 1ST TO 1 HR URNLS DIP 74331 [place] 1 [facility] STICK/TAB HOSPITAL HOSPITAL LET REAGENT AUTO MICROSCOP Y THERAPEUT 94213 [place] IC 1 [facility] INJECTION [facility] IV PUSH EACH NEW DRUG ECG 73583 MOOKIE DICKINSON ROUTINE 1 EMERGENCY ECG SERVICES W/LEAST 12 LDS I&[place] [address] [place] INFUSION 1 [facility] HYDRATION [facility] EACH ADDITIONA L HOUR CREATINE 47368 [place] KINASE MB 1 [facility] ONLY COLLECTIO 44283 [facility] VENOUS 1 [facility] VENIPUNCT URE CREATINE 20182 [facility] KINASE 1 [facility] TOTAL [facility] LOC Q9967 [facility] [phone] [facility] MG/ML [facility]PITAL IODINE CONCENTRA TION PER ML CT THORAX [address] [facility] [place] MAT W/O & 1 RADIOLOGY W/CONTRAS T MATERIAL THERAPEUT 31003 VILLAFLOR VILLAFLOR IC 0 OSI OSI PROPHYLAC TIC/DX INJECTION SUBQ/IM THERAPEUT 16410 VILLAFLOR VILLAFLOR IC 0 OSI OSI PROPHYLAC TIC/DX INJECTION SUBQ/IM INJECTION J3420 VILLAFLOR VILLAFLOR VIT B-12 0 OSI OSI CYANOCOBA KAREN TO 1000 MCG IIV3 40199 V[facility] VILLAFLOR VACCINE 0 OSI OSI SPLIT VIRUS 0.5 ML DOSAGE IM USE ADMINISTR G0008 V[place] VILL[place]FLOR ATION OF 0 OSI OSI INFLUENZA VIRUS VACCINE LIPID 85908 S[facility] PRINCE PANEL 0 [facility] HEPATIC 38872 SURESH PRINCE FUNCTION 0 CO [facility] [place] [address] SURESH PRINCE FREE [address] [facility] [address]XINE [place] [address] SURESH PRINCE THYROID [address] [facility] NG HORMONE TSH COLLECTIO 65573 SURESH PRINCE N VENOUS 0 [facility] BLOOD [facility] VENIPUNCT URE CT THORAX [address] [facility] [place] YARELI W/O 0 RADIOLOGY RHO CONTRAST MATERIAL INJECTION J3420 VILLAFLOR VILLAFLOR VIT B-12 0 OSI OSI CYANOCOBA KAREN TO 1000 MCG L HRT 13589 CARDIOLOG SAVANNAH CATHETERI 0 Y ANT ZATION ASSOCIATE [place] [address] CARDIOLOG SAVANNAH C-CATHJ 0 Y ANT F/SLCTV C ASSOCIATE ANGRPH S OF [place] I SI&R 11146 CARDIOLOG SAVANNAH F/NJX PX 0 Y ANT DURING ASSOCIATE C-CATHJ S OF [place] VENTR&/AT R ANGRPH I SI&R 14804 CARDIOLOG SAVANNAH F/NJX PX 0 Y ANT DURING ASSOCIATE C-CATHJ S OF [place] PULM&/OR SELECT INJECTION 55725 CARDIOLOG SAVANNAH CARDIAC 0 Y ANT CATHJ L ASSOCIATE VENTR/L S OF [place] ATR ANGIOGRAP H INJECTION J1030 VILLAFLOR VILLAFLOR 0 OSI OSI METHYLPRE DNISOLONE ACETATE 40 MG BASIC 08704 SURESH PRINCE METABOLIC 0 CO [facility] CALCIUM TOTAL BLOOD 34217 SURESH PRINCE COUNT 0 CO [facility] MCRSCP W/MNL DIFRNTL WBC COUNT COLLECTIO 42708 SURESH PRINCE N VENOUS 0 CO [facility] VENIPUNCT URE BLOOD 61303 SURESH PRINCE COUNT 0 CO [facility] AUTO&AUTO DIFRNTL WBC ECG 19788 BRONSON HARDING HARDING BRONSON ROUTINE 0 MD ECG CONSULTIN W/LEAST G SRV 12 LDS W/I&R ECG 54660 BRONSON HARDING HARDING BRONSNO ROUTINE 0 MD ECG CONSULTIN W/LEAST G SRV 12 LDS W/I&R POLYSOM 79901 BRONSON HARDING HARDING BRONSON 6/>YRS 0 MD SLEEP 4/> CONSULTIN ADDL G SRV NAY ATTND POLYSOM 38205 BOURB[place] BOURBON 6/>YRS 0 COMMUNITY COMMUNITY SLEEP 4/> HOSPITAL HOSPITAL ADDL NAY ATTND INJECTION [id number] [facility] HARDING HARDING, 0 MD PANCHITO Treviño REGADENOS CONSULTIN ON 0.1 MG G SRV PSC CV STRS 37414 [facility] HARDING HARDING, TST 0 MD PANCHITO Treviño XERS&/OR CONSULTIN RX CONT G SRV PSC ECG W/SI&R MYOCARDIA 34539 [facility] HARDING HARDING, L SPECT 0 MD PANCHITO Treviño MULTIPLE CONSULTIN STUDIES G SRV PSC TECHNETIU A9500 [facility] HARDING HARDING, M TC-99M 0 MD PANCHITO Treviño SESTAMIBI CONSULTIN DX PER G SRV PSC STUDY DOSE CREATININ 83796 [facility] E BLOOD 0 [facility] [place] [address] [facility] UREA 0 [facility] QUANTITAT FARTUN COLLECTIO 03526 [facility] N VENOUS 0 [facility] VENIPUNCT URE LOCM Q9967 [facility] [phone] [facility] MG/ML [facility] HOSPITAL IODINE CONCENTRA TION PER ML ECG 22036 [facility] HARDING HARDING, ROUTINE 0 MD PANCHITO Treviño ECG CONSULTIN W/LEAST G SRV PSC 12 LDS I&[place] [address] [facility] [place] Mary MUÑOZ HEAD/BRAI 0 RADIOLOGY T N W/O & W/CONTRAS T MATERIAL CT THORAX 98268 [facility] [place] TONI G 0 RADIOLOGY T W/CONTRAS T MATERIAL ECG 36271 [facility] HARDING HARDING BRONSON ROUTINE 0 MD ECG CONSULTIN W/LEAST G SRV 12 LDS W/I&R ECHO 12871 [facility] HARDING HARDING BRONSON TTHRC R-T 0 2D CONSULTIN W/WOM-MOD G SRV E COMPL SPEC&COLR D RADIOLOGI 07589 KANEShen TRAN EXAM 0 VLADIMIR S CHEST 2 RADIOLOGY VIEWS FRONTAL&L ASSOCIATE ATERAL S PSC CT THORAX 09210 KANEEVANGELISTA FRASER, W/O 0 VLADIMIR S CONTRAST RADIOLOGY MATERIAL ASSOCIATE S [facility] 3D 18477 AVELDAYAN TRAN 0 VLADIMIR S W/INTERP RADIOLOGY & POSTPROCE ASSOCIATE SS S PSC SUPERVISI ON RADIOLOGI 37241 KANEShen TRAN EXAM 0 VLADIMIR S CHEST 2 RADIOLOGY VIEWS FRONTAL&L ASSOCIATE ATERAL S PSC RADIOLOGI 52064 STRATHMORE IJEOMA Gotti EXAM 0 EIDER, CHEST 2 RADIOLOGY STAS VIEWS K FRONTAL&L ASSOCIATE ATERAL S PSC RADIOLOGI 00835 STRATHMORE IJEOMA C EXAM 0 EIDER, CHEST 2 RADIOLOGY STAS VIEWS K FRONTAL&L ASSOCIATE ATERAL S PSC RADIOLOGI 20271 STRATHMORE Shen MATSON EXAM 0 FABRICE C CHEST 2 RADIOLOGY VIEWS FRONTAL&L ASSOCIATE ATERAL S PSC RADIOLOGI 06947 STRATHMORE DANO C EXAM 0 JESSI CHEST 2 RADIOLOGY VIEWS ASSOCIAT FRONTAL&L ATERAL OBSERVATI 04609 [facility] BOWMAN, ON CARE 0 INPATIENT JOAQUINA H DISCHARGE MEDICINE ASSOC MANAGEMEN T INITIAL [address] [facility] BOWMAN, OBSERVATI 0 INPATIENT JOAQUINA H ON MEDICINE CARE/DAY ASSOC 50 MINUTES RADIOLOGI 96948 CN[facility] TITI DOWNS C 0 RADIOLOGY SOURAV G EXAMINATI ON CHEST SINGLE VIEW FRONTAL RADIOLOGI 75236 STRATHMORE Shen MATSON EXAM 0 FABRICE C CHEST 2 RADIOLOGY VIEWS FRONTAL&L ASSOCIATE ATERAL S PSC RADIOLOGI 78535 KANEShen MARTÍNEZ 0 FABRICE C EXAMINATI RADIOLOGY ON CHEST SINGLE ASSOCIATE VIEW S PSC FRONTAL MRI 74013 [facility] SPINAL [address] [place] [address] THORACIC W/[place] [address] [facility] [place] CLEMONS, CERVICAL 9 RADIOLOGY SONJA A SPINE W/O CONTRAST MATERIAL MRI 02763 [facility] SPINAL [address] [place] [address] CERVICAL W/[place] [address] LAB AMANDA LAB AMANDA GLUTAMYLT 9 AMERIC AMER[employer] RASE [employer]ING HOLDING GAMMA BASIC 39926 LAB AMANDA LAB AMANDA METABOLIC 9 AMERIC AMER[employer] PANEL HOLDING HOLDING CALCIUM TOTAL BLOOD 23699 LAB AMANDA LAB AMANDA COUNT 9 AMERIC AMER[employer] COMPLETE HOLDING HOLDING AUTO&AUTO DIFRNTL WBC TRANSFERA 78560 LAB AMANDA LAB AMANDA SE 9 AMERIC AMERIC ASPARTATE HOLDING HOLDING AMINO AST SGOT TRANSFERA 51130 LAB AMANDA LAB AMANDA SE 9 AMERIC AMERIC ALANINE HOLDING HOLDING AMINO ALT SGPT COLLECTIO 77218 LAB AMANDA LAB AMANDA N VENOUS 9 AMERIC AMER[employer] BLOOD [place] [address] LAB AMANDA LAB AMANDA PHOSPHATA 9 AMERIC AMER[employer] SE HOLDING HOLDING ALKALINE RADEX ABD 43059 [facility], COMPL 9 VLADIMIR S AQT ABD RADIOLOGY W/S/E/D VIEWS 1 ASSOCIATE VIEW S [facility] RADIOLOGI 33112 STRATHMORE FRASER, C EXAM 9 VLADIMIR S CHEST 2 RADIOLOGY VIEWS FRONTAL&L ASSOCIATE ATERAL S PSC RADEX ABD 77877 [facility] [place] YARELI, COMPL 9 RADIOLOGY SOURAV G AQT ABD W/S/E/D VIEWS 1 [facility] 56221 FLAKO ARRIOLA, DISCHARGE 9 [facility] DAY MANAGEMEN T 30 MIN/< SBSQ [address] [facility] 9 [facility] ZELALEM CARE/DAY 35 MINUTES RADEX ABD 46973 [facility] COMPL 9 EIDER, AQT ABD RADIOLOGY STAS W/S/E/D K VIEWS 1 ASSOCIATE VIEW [facility] CT PELVIS 53704 [facility] W/O 9 EIDER, CONTRAST RADIOLOGY STAS MATERIAL K ASSOCIATE S [facility] [place] [address] [facility] ABDOMEN 9 EIDER, W/O RADIOLOGY STAS CONTRAST K MATERIAL ASSOCIATE S [facility] INITIAL [address] [facility] 9 ZELALEM ZELALEM CARE/DAY 70 MINUTES HOSPITAL G0378 [facility] OBSERVATI 9 [facility] SERVICE PER HOUR EGD 18393 [facility] TRANSORAL [address] [place] [address] BLEEDING ANY METHOD ANES 87842 TITI OLIVAREZ, UPPER GI 9 ANESTHESI ITZ ENDOSCOPY A GROUP PROXIMAL PSC TO DUODENUM ECG 16503 [facility] ROUTINE [address] [place] [address] HOSPITAL W/LEAST 12 LDS TRCG ONLY W/O I&R OBSERVATI 99082 ESSENCE BOWMAN, ON [facility] 9 INPATIENT JOAQUINA H DISCHARGE MEDICINE ASSOC MANAGEMEN T COMPREHEN 97440 [facility] SIVE 9 [facility] HOSPITAL PANEL BLOOD 97997 [facility] COUNT [address] [place] [address] [place] [address] [facility] ABDOMEN 9 [facility] W/CONTR HOSPITAL HOSPITAL T MATERIAL HI OSM Q9963 [facility] KESHAVIRTUA VOORHEES CONTRST 9 [facility] [phone] MG/ML IODINE CONC ML INITIAL 91525 DAVID NAYLOR 9 INPATIENT JOAQUINA H ON MEDICINE CARE/DAY ASSOC 70 MINUTES COLLECTIO 48551 [facility] N VENOUS 9 [facility] HOSPITAL VENIPUNCT URE THER 93367 SHAUN DUNN PROPH/DX 9 [facility] NJX IV HOSPITAL HOSPITAL PUSH SINGLE/1S T SBST/DRUG BLOOD 58698 [facility] COUNT 9 [facility] HOSPITAL MCRSCP W/MNL DIFRNTL WBC COUNT THERAPEUT 14962 [facility] IC 9 [facility] INJECTION [facility] [place] [address] [facility] TROPONIN 9 [facility] [place] [address] [facility] AMYLASE 9 [facility] CREATINE 60796 [facility] KINASE MB 9 [facility] HOSPITAL ONLY INJECTION J2765 [facility] [address] [place] [address] HOSPITAL AMIDE HCL UP [place] 10 [place] [address] KINCAID KESHAVIRTUA VOORHEES INFUSION 9 [facility] HOSPITAL EACH ADDITIONA L HOUR CT PELVIS 87837 CNTRL TITI DE LA O, 9 RADIOLOGY MALVIN D W/CONTRAS T MATERIAL RADIOLOGI 08921 SHAUN DUNN C EXAM 9 [facility] CHEST 2 [facility] HOSPITAL VIEWS FRONTAL&L ATERAL PROTHROMB 29333 SHAUN DUNN IN TIME 9 [facility] [place] [address] [facility] LIPASE [address] [place] [address] CREATINE 34708 [facility] KINASE 9 [facility] [place] [address] STRATHMORE IJEOMA COMPL 9 EIDER, AQT ABD RADIOLOGY STAS W/S/E/D K VIEWS 1 ASSOCIATE VIEW CH S [facility] RADIOLOGI 10440 [facility] SPENCER[facility]lin C EXAM 9 EIDER, CHEST 2 RADIOLOGY STAS VIEWS K FRONTAL&L ASSOCIATE ATERAL S [facility] Encounters Encounter Start End Date Code Location Performer Type Date EMERGENCY 48942 EDDIE JOHNSON DEPT 7 7 PHYSICIAN VISIT S, [facility] HIGH SEVERITY& THREAT [facility] 7 7 [facility] OUT[facility]IEN INC T EMERGENCY 77633 [facility] 7 7 [facility] DEPARTMEN INC T VISIT MODERATE SEVERITY OFFICE 34749 OMAR WATSON OUTPATIEN 7 7 DEDRA MAXWELL T VISIT ,[facility] 25 MINUTES OFFICE 12480 OMAR NELSON OUTPATIEN 7 7 Yunier MAXWELL VISIT ,[facility] 25 MINUTES OFFICE 18389 OMAR WATSON OUTPATIEN 7 7 DEDRA MAXWELL T VISIT ,[facility] 25 MINUTES OFFICE 81569 OMAR OSORIO OUTPATIEN 6 6 FLOWER MAXWELL MD,[facility] MINUTES HOSPITAL [facility] - 6 6 [facility] OUTPATIEN [facility] T EMERGENCY 99959 EDDIE LEDESMA 6 6 PHYSICIAN U [facility] S, [facility] T VISIT HIGH/URGE NT SEVERITY EMERGENCY 86068 [facility] 6 6 [facility] DEPARTMEN INC T VISIT MODERATE SEVERITY EMERGENCY 78675 [facility] 6 6 [facility] DEPARTMEN INC T VISIT LOW/MODER SEVERITY EMERGENCY 06689 EDDIE LEDESMA 6 6 PHYSICIAN U [facility] S, [facility] T VISIT HIGH/URGE NT SEVERITY HOSPITAL [facility] - 6 6 [facility] OUTPATIEN INC T HOSPITAL [facility] - 6 6 [facility] OUTPATIEN INC T EMERGENCY 45038 [facility] 6 6 [facility] T VISIT LIMITED/M INOR PROB EMERGENCY 85149 EDDIE JOHNSON 6 6 PHYSICIAN RADHA NAVA S, [facility] T VISIT HIGH/URGE NT SEVERITY OFFICE 12813 TITI SOLISL III OUTPATIEN 6 6 MEDICAL SAMANTHA T VISIT SERV 25 FOUNDATIO MINUTES N HOSPITAL [facility] - 6 6 [facility]IEN INC T HOSPITAL [facility] - OTHER 6 6 MEM HOSP INC EMERGENCY 69178 [facility] 6 6 [facility] T VISIT LIMITED/M INOR PROB HOSPITAL [facility] - 6 6 [facility] OUTPATIEN [facility] T EMERGENCY 88259 EDDIE JOHNSON 6 6 PHYSICIAN RADHA NAVA S, [facility] T VISIT MODERATE SEVERITY HOSPITAL [facility] - 6 6 [facility] OUT[facility]EN INC T OFFICE 99993 [facility] 6 6 PHYSICIAN GLORIA T VISIT S GROUP 25 MINUTES HOSPITAL [facility] - OTHER 6 6 [facility] INC OFFICE 90722 [facility] OUT[facility] 6 6 PHYSICIAN GLORIA T VISIT S GROUP 15 MINUTES EMERGENCY 75758 TITI AL GALI 6 6 MEDICAL DEPARTMEN SERV T VISIT FOUNDATIO MODERATE N SEVERITY EMERGENCY 50948 EDDIE GILLESPIE 6 6 [facility], [facility] T VISIT MODERATE SEVERITY HOSPITAL [facility] - 6 6 [facility] OUTPATIEN [facility] T EMERGENCY 98672 [facility] 6 6 [facility] INC T VISIT LOW/MODER SEVERITY OFFICE 98303 JULIO WALTON, OUTPATIEN 6 6 JAM T NEW 30 ORTHOPAED MINUTES [facility] PACHECO - OTHER 6 6 [facility] INC OFFICE 80227 [facility] OUTPATIEN 6 6 PHYSICIAN GLORIA T VISIT S GROUP 15 MINUTES OFFICE 91454 [facility] OUTPATIEN 6 6 PHYSICIAN GLORIA T VISIT S GROUP 25 MINUTES HOSPITAL [facility] - OTHER 6 6 [facility] UNIVERSIT 6 6 Y INPATIENT HOSPITAL EMERGENCY 56229 [facility] DEPT 6 6 PHYSICIAN RADHA VISIT S, [facility] HIGH SEVERITY& THREAT [facility] UNIVERSIT - 6 6 Y [facility] HOSPITAL [facility] - 6 6 [facility] OFF[facility] 95706 [facility] OUTPATIEN 6 6 PHYSICIAN GLORIA T VISIT S GROUP 15 MINUTES HOSPITAL [facility] - 6 6 [facility] EMERGENC[facility] 43205 EDDIE [facility] DEPT 6 6 PHYSICIAN U JAKE VISIT S, [facility] HIGH SEVERITY& THREAT [facility] - OTHER 6 6 [facility] PACHECO - OTHER 6 6 [facility] - 6 6 [facility] - 6 6 [facility] - OTHER 6 6 [facility] OFFICE 66854 [facility] OUTPATIEN 5 5 PHYSICIAN GLORIA T VISIT S GROUP 15 MINUTES HOSPITAL [facility] - 5 5 [facility] - 5 5 [facility] 4 4 [facility] OFFICE 34699 [facility] 4 4 COUNTY T VISIT RURAL 15 HEALTH MINUTES CLINIC, [facility] 4 4 [facility] HEALTH OFFICE 26091 [facility] 4 4 COUNTY T VISIT RURAL 15 HEALTH MINUTES [facility] 3 3 [facility] HEALTH OFFICE 40493 [facility] 3 3 [facility] T VISIT RURAL 15 HEALTH MINUTES OFFICE 47893 [facility] 3 3 RURAL T VISIT HEALTH 15 CLINIC MINUTES [facility], [facility] 3 3 [facility] CRITICAL [facility] ACCESS 3 3 [facility] OFFICE 83037 RIVERA FAN II OUTPATIEN 3 3 [facility] SLEEP ELIAZAR T VISIT AND REHA 15 MINUTES [facility] UNIVERSIT - 3 3 Y [facility] T OFFICE 32884 [facility] 3 3 [facility] T VISIT HEALTH 15 CLINIC MINUTES [facility] 3 3 [facility] EMERGENCY 69902 UNIVERSIT 3 3 Y [facility] T VISIT HIGH/URGE NT SEVERITY [facility] UNIVERS - [address] [facility] - 3 3 [facility] T OFFICE 41316 [facility] 3 3 [facility] T VISIT HEALTH 15 CLINIC MINUTES [facility] 3 3 [facility] OFFICE 28418 [facility] 2 2 RURAL T VISIT HEALTH 15 CLINIC MINUTES [facility] 2 2 [facility] OFFICE 06203 RIVERA FAN II OUTPATIEN 2 2 [facility] SLEEP ELIAZAR T VISIT AND REHA 15 MINUTES OFFICE 10982 CARDIOVAS LUCERO OUTPATIEN 2 2 ULAR & ANT T VISIT THORACIC 15 ASS MINUTES CRITICAL [facility] ACCESS 2 2 [facility] OFFICE 62761 COMMONREBECCAA MITA II OUTPATIEN 2 2 LT SLEEP ELIAZAR T VISIT AND REHA 15 MINUTES EMERGENCY 82782 [facility], 2 2 [facility] VISIT [place] HOS MODERATE SEVERITY CRITICAL [facility], ACCESS 2 2 [facility] OFFICE 03223 [facility] 2 2 OSI OSI T VISIT 15 MINUTES OFFICE 41490 [facility] MITA II OUTPATIEN 1 1 LT SLEEP ELIAZAR T NEW 30 AND REHA MINUT[address] OFFICE 34815 [facility] OUT[facility] 1 1 OSI OSI T VISIT 25 MINUTES CRITICAL SURESH ACCESS 1 1 [facility] UNIVERSIT - 1 1 [facility] T OFFICE 14208 [place] [facility] OUTPATIEN 1 1 MEDICAL T NEW 30 SERV MINUTES FOUNDATIO OFFICE 01294 [facility] OUTPATIEN 1 1 OSI OSI T VISIT 40 MINUTES CRITICAL SURESH ACCESS 1 1 [facility] SURESH - 1 1 [facility] T EMERGENCY [address] [facility] HIGH SEVERITY& THREAT FUNCJ CRITICAL SURESH ACCESS 1 1 [facility] EMERGENCY 33482 SURESH 1 1 [facility] T VISIT LIMITED/M INOR [facility] [place] - 1 1 [facility] T EMERGENCY 91501 [place] 1 1 [facility] T VISIT HIGH/URGE NT SEVERITY EMERGENCY 29462 [facility] DEPT 1 1 EMERGENCY VISIT SERVICES HIGH SEVERITY& THREAT FUNCJ OFFICE 53137 CARDIOVAS LUCERO OUTPATIEN 1 1 ULAR & ANT T VISIT THORACIC 15 ASS MINUTES HOSPITAL [place] - 1 1 [facility] T OFFICE 26436 [facility] 0 0 OSI OSI T VISIT 15 MINUTES OFFICE 71926 M[facility]EN[facility]- MELENDE[facility]- OUTPATIEN 0 0 CROW CROW T NEW 45 GEOVANNY GEOVANNY MINUTES CRITICAL SURESH ACCESS 0 0 [facility] CRITICAL S[facility] ACCESS 0 0 [facility] OFFICE 93952 CARDIOVAS LUCERO OUTPATIEN 0 0 ULAR & ANT T NEW 60 THORACIC MINUTES [facility] [place] - 0 0 [facility] T CRITICAL SURESH ACCESS 0 0 [facility] OFFICE 62764 [facility] BRONSON OUTPATIEN 0 0 MD T VISIT CONSULTIN 15 G SRV MINUTES OFFICE 42627 [facility] BRONSON OUTPATIEN 0 0 MD T VISIT CONSULTIN 15 G SRV MINUTES HOSPITAL [place] - 0 0 [facility] T OFFICE 43403 [facility] OUTPATIEN 0 0 , JAG M JAG M T VISIT 15 MINUTES OFFICE 63900 [facility] OUTPATIEN 0 0 , JAG M JAG M T VISIT 15 MINUTES OFFICE 54934 [facility]ON[facility] HARDING HARDING, OUTPATIEN 0 0 MD PANCHITO Treviño T VISIT CONSULTIN 15 G SRV PSC MINUTES HOSPITAL [place] - 0 0 [facility] T OFFICE 38942 [facility] 0 0 T VISIT CONSULTIN 25 G SRV MINUTES HOSPITAL UNIVERSIT - 9 9 [facility] T EMERGENCY 10094 SURESH 9 9 [facility] T VISIT LOW/MODER SEVERITY EMERGENCY 81942 TITI TIJERINA, 9 9 [facility] T VISIT FOUNDATIO MODERATE SEVERITY EMERGENCY 99855 SURES[facility] 9 9 [facility] T VISIT LOW/MODER SEVERITY EMERGENCY 65694 SURESH ARRIOLA, 9 9 [facility] T VISIT MODERATE SEVERITY CRITICAL SURESH ACCESS 9 9 [facility] OFFICE 08388 OMAR OTOOLE [facility] 9 9 ELEANOR MAXWELL T VISIT 5 M.D.P.S.C MINUTES . HOS[facility] 9 [facility] T OFFICE 74061 [facility] 9 9 MARCIO MAXWELL T NEW 30 M.D.P.S.C MINUTES . EMERGENCY 39519 [facility] ROH[facility], DEPT 9 9 DM GUY VISIT EMERGENCY A HIGH PHYS INC SEVERITY& THREAT FUNJ EMERGENCY 90491 [place] 9 9 [facility] T VISIT HIGH/URGE NT SEVERITY [facility] 9 9 [facility] T EMERGENCY 86561 MELBA TSAI, 9 9 [facility] T VISIT HIGH/URGE NT SEVERITY
--- OUTSIDE RECORDS SUMMARY | 2017-03-07 13:59 | External Medical Summary Rpt | CCD ---
Author Author , MARIE Bosch MARIE Address Unknown Phone [email or web address] Care Team Providers Care Ecclesiastical Worker Name Role Phone AHMED ADN, AHMED ADN Unavailable Unavailable AHMED, GUY A, Unavailable Unavailable AHMED, GUY A [facility], Unavailable Unavailable [facility] AIKAT SHA, AIKAT SHA Unavailable Unavailable ALHAJERI ABD, Unavailable Unavailable ALHAJERI ABD ALLRAN JR HANK, ALLRAN Unavailable Unavailable JR HANK TAIWANESE AMBULETT & Unavailable Unavailable AMBULANC, TAIWANESE AMBULETT & AMBULANC TAIWANESE AMBULETT & Unavailable Unavailable AMBULANC, TAIWANESE AMBULETT & AMBULANC DERIK MAYER, DERIK Unavailable Unavailable OMAR ROSENBERG Unavailable Unavailable OMAR MAXWELL, Unavailable Unavailable ,PSC, OMAR MAXWELL MD,PSC SKY HINSON Unavailable Unavailable JAKE BENSALEM DOMINIK, Unavailable Unavailable BENSALEM DOMINIK HAMILTON, HAMILTON Unavailable Unavailable HAMILTON ALL, HAMILTON ALL Unavailable Unavailable [facility] Unavailable Unavailable HOSPITAL, [facility] Unavailable Unavailable [facility] Unavailable Unavailable SERVICE, [facility] Unavailable Unavailable [facility], [facility] Unavailable Unavailable CONSULTANTS O, [facility] AMARJIT TIJERINA, Unavailable Unavailable AMARJIT TIJERINA CLARKE Unavailable Unavailable FABRICE GATES, Unavailable Unavailable FABRICE MATSON [facility], Unavailable Unavailable [facility] HARDING BRONSON, HARDING BRONSON Unavailable Unavailable HARDING, PANCHITO A, Unavailable Unavailable HARDING, PANCHITO A [facility] Unavailable [facility]available ANESTHESIA PSC, [facility] Unavailable Unavailable AND REHA, [facility] REHA PAM RODRIGEZ Unavailable Unavailable [...] O JASON A, Unavailable Unavailable SONJA CLEMONS [facility] Unavailable Unavailable INC, [facility] INC [facility] Unavailable Unavailable HOSPITAL P, [facility] P EVELIO GARNICA Unavailable Unavailable FLOWER VLADIMIR FRASER, Unavailable Unavailable VLADIMIR FRASER [facility], Unavailable Unavailable [facility] MILES MCKENNA Unavailable Unavailable JOAQUINA BOWMAN, Unavailable Unavailable JOAQUINA BOWMAN HUBER JUL Unavailable Unavailable CHING ASH, CHING Unavailable Unavailable ASH MITA II ELIAZAR, MITA Unavailable Unavailable II ELIAZAR MELENDEZ-CROW GEOVANNY, Unavailable Unavailable MELENDEZ-CROW GEOVANNY MELENDEZ-CROW GEOVANNY, Unavailable Unavailable MELENDEZ-CROW GEOVANNY [facility] Unavailable Unavailable CLINIC, [facility] SHAYNE BELLA CHA Unavailable Unavailable [facility] Unavailable Unavailable IMAGING ASS, [facility] DMITRY C, DMITRY C Unavailable Unavailable [facility], [facility] Unavailable Un[facility], [facility] Unavailable Unavailable HOLDING, [facility] LORNE JR DWI, LORNE Unavailable Unavailable JR DWI KRISTIAN ARRIOLA, Unavailable Unavailable KRISTIAN ARRIOLA ANT, SAVANNAH Unavailable Unavailable ANT [facility] Unavailable Unavailable SERVICES, [facility] Unavailable Unavailable ASSOCIAT, [facility] DATA NETWORK ARCHITECT [facility] Unavailable Unavailable [facility], [facility] DATA NETWORK ARCHITECT [facility] ITZ OLIVAREZ, Unavailable Unavailable ITZ OLIVAREZ MELISSA, SANTOS TORRES Unavailable Unavailable [facility] Unavailable Unavailable [facility], [facility], Unavailable Unavailable [facility] Unavailable Unavailable AMBULANCE SE, [facility] Unavailable Unavailable AMBULANCE SE, [facility] SE [facility] Unavailable Unavailable HEALTH, [facility] NICKELS TIANNA, NICKELS Unavailable Unavailable TIANNA [...] SOTINGEANU JAKE [facility] Unavailable Unavailable PHYSICIAN SERVI, [facility] ST Unavailable Unavailable [facility] SCO, [facility]ARKE Unavailable Unavailable SCO TAMAREN, FERMIN, Unavailable Unavailable TAMNILEN, FERMIN BORIS VERONIKA, BORIS Unavailable Unavailable VERONIKA MATTHEWS LUIS, MATTHEWS LUIS Unavailable Unavailable [facility] Unavailable Unavailable ASSIST, [facility], Unavailable Unavailable [facility] Unavailable Unavailable [facility], [facility] INTER VILLAFL[facility] OSI, Unavailable Unavailable VILLAFLOR [...] I10 ESSENTIAL 10-29-2016 [facility] PRIMARY [facility]YS[facility], HYPERTENSIO [facility] N K861 OTHER 10-29-2016 [place] CHRONIC [facility]ICAL PANCREATITI IMAGING ASS S R1032 LEFT LOWER 10-29-2016 [facility] QU[facility]ANT PHYSICIANS, PAIN PLLC R109 UNSPECIFIED 10-29-2016 [place] ABDOMINAL MEDICAL PAIN IMAGING ASS M961 POSTLAMINEC 09-24-2016 LULU KUO MD,PSC NEC [id number] [place] TECHNICIAN 07-30-2016 OMAR CURRENT USE NIKHIL MAXWELL OPIATE ,PSC ANALGESIC M542 CERVICALGIA 04-01-2016 OMAR MAXWELL MD,PSC M545 LOW BACK 04-01-2016 OMAR PAIN MD ALISSA,PSC M6250 MUSCLE 04-01-2016 OMAR WASTING & ALISSA ATROPHY KENJI LOPEZ,[facility] UNSPECIFIED SITE J189 PNEUMONIA 03-31-2016 [facility] UNSPECIFIED PHYSICIANS, ORGANISM PLL J441 CHRONIC 03-31-2016 [facility] OBSTRUCTIVE PHYSICIANS, PULMONARY PLLC DZ W/EXACERBAT ION R05 COUGH 03-31-2016 [facility] R079 CHEST PAIN 03-31-2016 [place] UNSPECIFIED MEDICAL IMAGING ASS Z720 TOBACCO USE 03-31-2016 [facility] G894 CHRONIC 03-25-2016 [facility] PAIN [facility] SYNDROME INC I2510 ASHD NANWALEK 03-25-2016 [facility] CORONARY [facility] ARTERY W/O INC ANGINA PECTORIS J449 CHRONIC 03-25-2016 [facility] OBSTRUCTIVE [facility] PULMONARY INC DISEASE UNS M549 DORSALGIA 03-14-2016 [facility] UNSPECIFIED PHYSICIANS, [facility] [id number] PERSONAL 03-14-2016 [facility] HISTORY OF MEM HOS[facility] NICOTINE INC DEPENDENCE K8590 ACUTE 02-21-2016 [place] [facility] PANCREATITI SERV S WO FOUNDATION NECROSIS/IN FECTION UNSPEC I714 ABDOMINAL 02-01-2016 [place] AORTIC MEDICAL ANEURYSM IMAGING ASS WITHOUT RUPTURE K838 OTHER 02-01-2016 [place] SPECIFIED MEDICAL DISEASES OF IMAGING ASS BILIARY TRACT K868 OTHER 02-01-2016 [place] SPECIFIED MEDICAL DISEASES OF IMAGING ASS PANCREAS N32787 ENCOUNTER 01-30-2016 [facility] FOR [facility] PREPROCEDUR INC AL LABORATORY EXAM G8929 OTHER 01-16-2016 [facility] CHRONIC PHYSICIANS PAIN GROUP M4694 UNS 01-16-2016 [facility] INFLAMMATOR PHYSICIANS Y GROUP SPONDYLOPAT HY THORACIC REGION A88628 OTHER LONG 01-16-2016 [facility] TERM [facility] CURRENT INC DRUG THERAPY L0390 CELLULITIS 01-08-2016 [facility] UNSPECIFIED PHYSICIANS GROUP M5090 CERVICAL 01-08-2016 [facility] DISC PHYSICIANS DISORDER GROUP UNS UNS CERVICAL REGION R1012 LEFT UPPER 10-22-2015 [facility] SERV PAIN FOUNDATION K15569 PAIN IN ARM 10-14-2015 [facility] UNSPECIFIED AMBULANCE SE R1010 UPPER 10-14-2015 [facility] ABDOMINAL [facility] PAIN INC UNSPECIFIED [id number] COMP 10-14-2015 [facility] UNS SE INITIAL ENCNTR M4802 SPINAL 09-22-2015 [facility] STENOSIS PHYSICIANS CERVICAL GROUP REGION M9983 OTHER 09-11-2015 [facility] BIOMECHANIC PHYSICIANS AL LESIONS GROUP OF LUMBAR REGION K8050 CALCULUS BD 09-06-2015 [facility] W/[facility] SERV CHOLANGITIS FOUNDATION /CHOLECYST W/O OBST K831 OBSTRUCTION 09-06-2015 [place] [facility] OF BILE SERV DUCT FOUNDATION R188 OTHER 09-05-2015 [facility] ASCITES SERV [facility] R740 NONSPECIFIC 09-05-2015 [facility] E[facility] SERV LEVELS FOUNDATION TRANSAMINAS E & LDH K859 ACUTE 09-04-2015 [facility] PANCREAT[facility]I N PHYSICIAN S SERVI UNSPECIFIED E785 HYPERLIPIDE 09-03-[address] [facility] UNSPECIFIED K567 ILEUS 09-03-2015 [facility] I259 CHRONIC 09-02-2015 [place] [facility] ISCHEMIC SERV HEART FOUNDATION DISEASE UNSPECIFIED K8020 CALCULUS GB 09-02-2015 [facility] W/O PHYSICIANS, CHOLECYSTIT PLLC IS W/O OBSTRUCTION R7989 OTHER SPEC 09-02-2015 [place] ABNORMAL MEDICAL FINDINGS IMAGING ASS BLOOD CHEMISTRY I422 OTHER 08-18-2015 [facility] INC CARDIOMYOPA THY M488X6 OTHER 08-18-2015 [facility] SPECIFIED PHYSICIANS SPONDYLOPAT GROUP HIES LUMBAR REGION E860 DEHYDRATION 08-04-2015 [facility] PHYSICIANS, PLLC R1033 PERIUMBILIC 08-04-2015 [place] AL PAIN MEDICAL IMAGING ASS R110 NAUSEA 08-04-2015 [facility] AMBULANCE SE R112 NAUSEA WITH 08-04-2015 [facility] VOMITING PHYSICIANS, UNSPECIFIED PLLC Z955 PRESENCE OF 08-04-2015 [facility] P IMPLANT & GRAFT J38954 SPONDYLOSIS 06-30-2015 [place] W/O MEDICAL MYELOPATH/R IMAGING ASS ADICULOPATH Y LUMB RGN M5126 OTH 06-30-2015 [place] INTERVERTEB MEDICAL RAL DISC IMAGING ASS DISPLACEMEN T LUMBAR RGN M546 PAIN IN 06-30-2015 [place] THORACIC MEDICAL SPINE IMAGING ASS R0989 OT SPEC SX 05-25-2015 [place] & SIGNS MEDICAL INVLV THE IMAGING ASS CIRC & RESP SYS M4692 UNS 05-03-2015 [facility] INFLAMMATOR PHYSICIANS Y GROUP SPONDYLOPAT HY CERVICAL REGION M5030 OT 05-03-2015 [facility] CERVICAL PHYSICIANS DISC GROUP DEGENERATIO N UNS CERV REGION M9981 OTHER 05-03-2015 [facility] BIOMECHANIC PHYSICIANS AL LESIONS GROUP OF CERVICAL REGION R9089 OT 05-03-2015 [facility] ABNORMAL PHYSICIANS FIND ON DX GROUP IMAGING [facility] NERV SYS M5032 OT CERV 04-21-2015 [place] DISC MEDICAL DEGENERATIO IMAGING ASS N MID-CERVICA L REGION 08458 BARRETTS 08-06-2013 [facility] PSC 67073 ATROPHIC 08-06-2013 [facility] GASTRITIS [place] WITHOUT CLINIC PSC MENTION OF HEMORRHAGE 17141 ABDOMINAL 08-06-2013 [facility] PAIN, H UNSPECIFIED ANESTHESIA SITE PSC 496 CHRONIC 08-03-2013 [facility] OBSTRUCTION ASSOCIAT NEC 95895 SOLITARY 08-03-2013 [facility] PULMONARY [facility] NODULE ASSOCIAT 4414 ABDOMINAL 08-01-2013 [facility] ANEURYSM [facility]OLOG[facility] WITHOUT ASSOCIAT MENTION OF RUPTURE V4579 OTHER 08-01-2013 [facility] ACQUIRED RADIOLOGY ABSENCE OF ASSOCIAT ORGAN 59707 UNSPEC 07-21-2013 [facility] EPILEPSY [facility] WITHOUT RURAL MENTION HEALTH INTRACT EPILEPSY 4619 ACUTE 07-21-2013 [facility] SINUSITIS, [facility] UNSPECIFIED RURAL HEALTH 2724 OTHER AND 07-08-2013 [facility] UNSPECIFIED [facility] RURAL HYPERLIPIDE HEALTH ANGEL 4011 ESSENTIAL 07-08-2013 [facility] HYPERTENSIO [facility] N, BENIGN [facility] 55439 COR 07-08-2013 [facility] ATHEROSLERO [facility] UNSPEC RURAL TYPE VESSEL HEALTH NANWALEK/LUPILLO T 41797 ACUT 07-06-2013 [facility] MYOC[facility] LAR INFARCT UNS CONSULTANTS SITE EPIS O CARE UNS 7862 COUGH 04-10-2013 [facility] 7842 SWELLING 03-09-2013 [facility] MASS OR RADIOLOGY LUMP IN ASSOCIAT HEAD AND NECK 3384 CHRONIC 02-17-2013 [facility] PAIN [facility] SYNDROME [facility] 7210 CERVICAL 02-17-2013 [facility] SPONDYLOSIS [facility] WITHOUT RURAL MYELOPATHY HEALTH 7231 CERVICALGIA 02-17-2013 [facility] 37879 HYPERTROPHY 10-13-2012 [facility] PROSTATE HEALTH W/O UR OBST CLINIC & OTH LUTS 7804 DIZZINESS 10-13-2012 [facility] GIDDINESS CLINIC 14506 INSOMNIA 10-13-2012 [facility] UNSPECIFIED HEALTH CLINIC 7224 DEGENERATIO 09-24-2012 [facility] N OF H SLEEP AND CERVICAL REHA INTERVERTEB RAL DISC 7234 BRACHIAL 09-24-2012 [facility] NEURITIS OR H SLEEP AND REHA RADICULITIS NOS V5417 AFTERCARE 09-24-2012 [facility] TRAUMATIC FOUNDATIO FRACTURE VERTEBRAE V5489 OTHER 09-24-2012 [facility] AFTERCARE E8889 UNSPECIFIED 09-22-2012 [facility] 4400 ATHEROSCLER 09-16-2012 [place] [facility] OSIS OF SERV AORTA FOUNDATIO 79451 PATHOLOGIC 09-16-2012 [place] [facility] FRACTURE OF SERV VERTEBRAE FOUNDATIO 26174 OTHER 09-16-2012 [place] [facility]VULSIONS SERV FOUNDATIO 16713 CLOS FX 09-16-2012 [facility] VERTEBRA UNS LEVL W/O SP CRD INJURY 17046 CLOS FX C3 09-16-2012 [facility] [place] [facility] W/O MENTION FOUNDATIO SP CRD INJURY 30912 SUBARACH 09-16-2012 [facility] SERV INJR W/O FOUNDATIO OPN ICW UNS SOC 86078 SUBARACH 09-16-2012 [facility] INJR W/O OPN ICW NO LOC 9582 SEC&RECURRE 09-16-2012 TAIWANESE NT AMBULETT & HEMORRHAGE AMBULANC AN EARLY COMP TRAUMA V454 ARTHRODESIS 09-16-2012 [facility] 47702 OT FORM 09-15-2012 [facility] EPILEPSY & HEALTH RECUR CLINIC SEIZUR NO INTRACT EPIL 13128 OTHER 09-15-2012 [facility] DISEASES OF RADIOLOGY LUNG NOT ASSOCIAT ELSEWHERE CLASSIFIED 67369 SWELLING OF 09-15-2012 [facility] LIMB [facility]IOLOG[facility] ASSOCIAT 87237 ALTERED 09-15-2012 [facility] MENTAL HEALTH STATUS CLINIC 920 CONTUSION 09-15-2012 [facility] OF FACE RADIOLOGY SCALP AND ASSOCIAT NECK EXCEPT EYE 7048 OTHER 05-21-2012 [facility] SPECIFIED HEALTH DISEASE OF CLINIC HAIR&HAIR FOLLICLES 6820 CELLULITIS 05-14-2012 [facility] OF FACE CLINIC 2811 OTHER 12-09-2011 [facility] VITAMIN B12 OSI DEFICIENCY ANEMIA 76184 OSTEOARTHRO 12-09-2011 [facility] S UNSPEC OSI WHETHER GEN/LOC UNSPEC SITE 56598 UNSPECIFIED 10-28-2011 [facility] DISORDER RADIOLOGY OF SHOULDER ASSOCIAT JOINT 9057 LATE EFF 10-28-2011 [facility] SPRAIN[facility]STRA DATA NETWORK ARCHITECT IN W/O [facility] MENTION HOS TENDON INJURY V4589 OTHER 10-28-2011 [facility], POSTSURGICA DATA NETWORK ARCHITECT L STATUS [facility] OTHER HOS 12105 SINOATRIAL 10-07-2011 [facility] NODE OSI DYSFUNCTION 91444 OSTEOARTHRO 07-29-2011 [facility] S UNSPEC OSI WHETHER GEN/LOC SHLDR REGION 86895 PRECORDIAL 03-26-[address] MD CONSULTING SRV 2768 HYPOPOTASSE 12-10-2010 [facility] ANGEL OSI 586 UNSPECIFIED 12-10-2010 [facility] FAILURE V1551 PERSONAL 12-10-2010 O[facility] HISTORY OF OSI TRAUMATIC FRACTURE 19279 CONGENITAL 11-30-2010 [facility] TH[facility] 13831 CLOS FX C5 11-30-2010 [facility] W/O MENTION SP CRD INJURY 7028 OTHER 11-21-2010 [place] [facility] SPECIFIED SERV DERMATOSES FOUNDATIO 54272 CLOSED 11-12-2010 [facility] FRACTURE OF OSI HEAD OF RADIUS 7384 ACQUIRED 11-02-2010 [place] [facility] SPONDYLOLIS SERV THESIS FOUNDATIO 63274 CLOS FX C6 11-02-2010 [facility] VERTEBRA PHYSICIANS W/O MENTION ASSIST SP CRD INJURY 4019 UNSPECIFIED 11-01-2010 [facility] HYPERTENSIO INTER N 4580 ORTHOSTATIC 11-01-2010 [facility] HYPOTENSION INTER E8869 OTH & UNS 11-01-2010 [facility] FALL ON INTER SAME LEVEL 7802 SYNCOPE AND 10-31-2010 [place] [facility] COLLAPSE [facility] F[facility] 13766 OTH NONSPC 10-31-2010 [facility] ABN FINDNG SERV RAD&OTH EXM FOUNDATIO BODY STRUCTURE V7281 PRE-OPERATI 10-31-2010 [facility] VE [facility] CARDIOVASCU FOUNDATIO LAR EXAMINATION 2761 HYPOSMOLALI 10-30-2010 [facility] TY AND/OR HOSPITAL HYPONATREMI A 86395 SWELLING OR 10-30-2010 [facility] MASS OF RADIOLOGY EYE ASSOCIAT 51478 OCCLUSION&S 10-30-2010 [place] [facility] TENOS SERV CAROTID ART FOUNDATIO W/O MENTION INFARCT 19365 OCCLUSION&S 10-30-2010 [place] [facility] TENOS VERT SERV ART W/O FOUNDATIO MENTION INFARCT 41665 OTHER 10-30-2010 [place] [facility] DISEASES OF SERV NASAL FOUNDATIO CAVITY AND SINUSES 46086 DEGEN 10-30-2010 [place] [facility] LUMBAR/LUMB SERV OSACRAL FOUNDATIO INTERVERTEB RAL DISC 7226 DEGENERATIO 10-30-2010 [facility] RAL DISC SITE UNSPEC 7230 SPINAL 10-30-2010 [facility] [place] STENOSIS IN RADIOLOGY CERVICAL REGION 10052 OTHER 10-30-2010 [facility] FATIGUE 7840 HEADACHE 10-30-2010 [facility] ASSOCIAT 80497 SHORTNESS 10-30-2010 [facility] 34130 URINARY 10-30-2010 [facility] 7937 NONSPC ABN 10-30-2010 [facility] FINDNG RAD RADIOLOGY & OTH EXM ASSOCIAT MUSCULSKELT L SYS 9210 BLACK EYE, 10-30-2010 [facility] NOT RADIOLOGY OTHERWISE ASSOCIAT SPECIFIED 26174 HEAD 10-30-2010 [facility] INJURY, RADIOLOGY UNSPECIFIED ASSOCIAT 48175 INJURY OF 10-30-2010 [facility] FACE AND RADIOLOGY NECK OTHER ASSOCIAT AND UNSPECIFIED 01153 OTHER 10-30-2010 [facility] INJURY OF RADIOLOGY OTHER SITES ASSOCIAT OF TRUNK E8490 PLACE OF 10-30-2010 [facility] OCCURRENCE, HOSPITAL HOME E8888 OTHER FALL 10-30-2010 [facility] 7869 OTH 08-27-2010 [facility] INVOLVING RESPIRATORY SYSTEM&CHES T V5869 LONG-TERM 08-27-2010 [facility] (CURRENT) HOSPITAL USE OF OTHER MEDICATIONS 4739 UNSPECIFIED 08-17-2010 [facility] 27051 HEMATURIA 08-17-2010 [facility]PEC[facility]ENCY SERVICES 79843 CHEST PAIN 08-17-2010 [facility] [place] UNSPECIFIED RADIOLOGY 85660 PAINFUL 08-17-2010 [facility] RESPIRATION EMERGENCY SERVICES 7944 NONSPECIFIC 08-17-2010 [facility] KIDNEY FUNCTION STUDY 7931 NONSPEC 07-09-2010 [facility] [place] FIND RAD RADIOLOGY OTH EXAM BODY STRUCT LUNG FIELD 9635 POISONING 04-19-2010 [facility] BY VITAMINS OSI NOT ELSEWHERE CLASSIFIED V0481 NEED 02-16-2010 [facility] PROPHYLA[facility] C VACCINATION &INOCULATIO N FLU 14288 LOSS OF 02-14-2010 [facility] RAMESH SMALL 98588 NAUSEA WITH 02-14-2010 [facility] VOMITING RAMESH SMALL 32632 TRANSIENT 01-27-2010 [facility] 4139 OTHER AND 12-25-2009 CARDIOLOG[facility] UNSPECIFIED ASSOCIATES ANGINA OF [place] 17490 SPONDYLOSIS 12-22-2009 [facility] UNSPEC OSI SITE W/O MENTION MYELOPATHY 2722 MIXED 12-20-2009 [facility] HYPERLIPIDE HOSPITAL ANGEL 3278 OTHER 12-07-2009 BRONSON ANDRADE MD SLEEP CONSULTING DISORDERS SRV 01420 HYPERSOMNIA 12-07-2009 BRONSON HARDING MD UNSPECIFIED CONSULTING SRV 95802 DYSFNCT 12-05-2009 [facility] W/SLEEP HOSPITAL STGES/AROUS AL FRM SLEEP 83377 UNSPECIFIED 12-05-2009 [facility] V851 BODY MASS 12-05-2009 [facility] HOSPITAL 19-24 ADULT 38731 GENERALIZED 12-04-2009 [facility], ANXIETY JAG M DISORDER V173 FAMILY 11-14-2009 BRONSON HARDING HISTORY OF ISCHEMIC CONSULTING HEART SRV PSC DISEASE 2720 PURE 11-07-2009 [place] HYPERCHOLES [facility] 4920 EMPHYSEMATO 11-07-2009 [facility] [place] US BLEB RADIOLOGY 486 PNEUMONIA, 10-05-2009 [facility] ORGANISM [facility]IOLOGY UNSPECIFIED ASSOCIATES PSC 514 PULMONARY 07-03-2009 [facility] CONGESTION RADIOLOGY AND ASSOCIAT HYPOSTASIS 3699 UNSPECIFIED 04-14-2009 [facility] VISUAL HOSPITAL LOSS 36727 UNSPECIFIED 04-14-2009 [facility] HOSPITAL CONJUNCTIVI TIS 76707 PAIN IN OR 04-14-2009 [place] [facility] SERV FOUNDATIO 78260 UNSPECIFIED 04-13-2009 [facility] SCLERITIS HOSPITAL 7220 DISPLCMT 03-14-2009 [facility] [place] CERV RADIOLOGY INTERVERT DISC WITHOUT MYELOPATHY 29664 DEGEN 03-14-2009 [place] THORACIC/TH [facility] INTERVERTEB RAL DISC 7241 PAIN IN 03-14-2009 [facility] [place] THORACIC RADIOLOGY SPINE 2763 ALKALOSIS 01-14-2009 KRISTIAN ARRIOLA 10699 PEPTC ULCR 01-14-2009 ABIDA ARRIOLA ACUT/CHRN W/O HEMOR PERF/OBST 5770 ACUTE 01-14-2009 RICA ARRIOLAATITI KRISTIAN Faye S 21423 DEHYDRATION 10-09-2008 WIGNAKSMITA, VELUPILLAI 5771 CHRONIC 10-09-2008 WIGNAKSMITA, PANCREATITI VELUPILLAI S 16333 ABDOMINAL 10-09-2008 WIGNAKSMITA, PAIN, VELUPILLAI EPIGASTRIC 50484 UNSPECIFIED 10-08-2008 [facility] ESOPHAGITIS [facility] 60889 CHRON/UNS 10-08-2008 [place] GASTR [facility] W/[facility] W/O MENTION OBST 91159 ACUT DUOD 10-08-2008 [place] [facility] INPATIENT W/[facility] MEDICINE W/O MENTION ASSOC OBSTRUCTION 07475 UNS 10-08-2008 [place] GASTRITIS&G [facility] ASTRODUODIT [facility] IS W/O MENTION HEMORR 5362 PERSISTENT 10-08-2008 [place] VOMITING INPATIENT MEDICINE ASSOC 5368 DYSPEPSIA&O 10-08-2008 [place] THER [facility] FUNCTION STOMACH 5533 DIAPHRAGMAT 10-08-2008 [facility] [place] KEN W/O RADIOLOGY MENTION OBSTRUCTION /GANGREN 35836 OTHER 09-14-2008 [facility] SPECIFIED RADIOLOGY DISORDER OF ASSOCIATES INTESTINES PSC Immunization Name Date Rout CVX Reac Dose Comm Prov Is Faci e tion ent ider Refu lity Give sed n IIV3 10-0 141 VILL No VILL 1-20 AFLO AFLO VACC 10 R R INE OSI SPLI T VIRU OSI S 0.5 ML DOSA GE IM USE Procedures Procedure [place] [address] [facility] AMYLASE 7 [facility] INC INC BLOOD 73016 [facility] COUNT 7 [facility] COMPLETE [facility] INC AUTO&AUTO DIFRNTL WBC COMPREHEN 63035 [facility] SIVE 7 [facility] [place] [address] [place] ABDOMEN & 7 MEDICAL PELVIS IMAGING W/[place] [address] [facility] LIPASE 7 [facility] INC BILIRUBIN 42383 NELSON NELSON DIRECT 7 [place] [address] NELSONVENITA NELSON PHOSPHORU 7 Thomas MAXWELL MD,[facility] INORGANIC COLLECTIO 04419 NELSONVENITA NELSON N VENOUS 7 ART MAXWELL MD,[facility] VENIPUNCT URE DRUG TEST 67260 NELSON NELSON PRSMV 7 SHANE MAXWELL MD,[facility] CHEMISTRY ANALYZERS COMPREHEN 11214 OMAR NELSON SIVE 7 CELIA MAXWELL MD,[facility] PANEL BLOOD 24642 OMAR NELSON COUNT 7 EM MAXWELL MD,[facility] AUTO&[place] [address] NELSONVENITA NELSON GLUTAMYLT 7 EMILY MAXWELL MD,[facility] GAMMA BLOOD 37770 OMAR PELLANT COUNT 6 FLOWER MAXWELL MD,[facility] AUTO&AUTO DIFRNTL WBC COMPREHEN 21071 OMAR PELLANT SIVE 6 FLOWER MAXWELL MD,[facility] PANEL DRUG TEST G0479 NELSON PELLANT 6 FLOWER MAXWELL MD,[facility] NSTRUMENT [place] [address] NELSON PELLANT GLUTAMYLT 6 FLOWER MAXWELL MD,[facility] [place] [address] NELSON PELLANT TESTOSTER 6 FLOWER MAXWELL MD,[facility] COLLECTIO 76105 NELSON PELLANT N VENOUS 6 FLOWER MAXWELL MD,[facility] VENIPUNCT URE PRESSURIZ 97223 [facility] ED/NONPRE 6 [facility] SSURIZED [place] [address] [facility] INFUSION 6 [facility] THERAPY/P INC INC ROPHYLAXI S /DX 1ST TO 1 [place] [address] [facility] INFUSION 6 [facility] THER INC INC PROPH ADDL SEQUENTIA L TO 1 HR RADIOLOGI 93443 [place] C EXAM 6 MEDICAL REID CHEST 2 IMAGING VIEWS ASS FRONTAL&L ATERAL COMPREHEN 11176 [facility] SIVE 6 [facility] METABOLIC INC INC PANEL BLOOD 95777 [facility] COUNT 6 [facility] COMPLETE INC INC AUTO&AUTO DIFRNTL WBC THERAPEUT 20367 [facility] IC 6 [facility] PROPHYLAC INC INC TIC/DX INJECTION SUBQ/IM INJECTION J2405 [facility] 6 [facility] ONDANSETR INC INC ON HCL PER 1 MG THERAPEUT 28213 [facility] IC 6 [facility] PROPHYLAC INC INC TIC/DX INJECTION SUBQ/IM LOCM Q9967 [facility] [phone] 6 [facility] MG/ML INC [place] [address] [facility] ANGIOGRAP 6 [facility] HY INC INC ABDOMEN W/[place] [address] [place] ALL ABDOMEN 6 MEDICAL W/O IMAGING CONTRAST ASS MATERIAL BASIC 13733 [facility] METABOLIC 6 [facility] PANEL INC INC CALCIUM TOTAL COLLECTIO 69564 [facility] N VENOUS 6 [facility] [place] [address] [facility] RETROPERI [facility] HOSP TONEAL INC [place] W/[place] [address] ESSENCE HAMILTON ALL RETROPERI 6 MEDICAL TONEAL IMAGING REAL TIME ASS W/IMAGE LIMITED DRUG TST G0477 [facility] PRESUMP;C 6 [facility] PBL BEING INC INC READ DC OPT OBV ONLY GROUND A0425 SURESH PRINCE MILEAGE [address] [place] [address] PER AMBULANCE AMBULANCE STATUTE SE SE MILE AMBULANCE A0429 SURES[facility] PRINCE SERVICE [address] [place] [address] AMBULANCE AMBULANCE EMERGENCY SE SE TRANSPORT AMBULANCE A0429 S[facility] PRINCE SERVICE [address] [place] [address] AMBULANCE AMBULANCE EMERGENCY SE SE TRANSPORT THERAPEUT 96188 [facility] IC 6 [facility] PROPHYLAC INC INC TIC/DX INJECTION SUBQ/IM GROUND A0425 SURESH PRINCE MILEAGE [address] [place] [address] PER AMBULANCE AMBULANCE STATUTE SE SE MILE DRUG TST G0477 [facility] BERGMAN PRESUMP;C 6 MEM HOSP MEM HOSP PBL BEING INC INC READ DC OPT OBV ONLY DRUG TST G0477 [facility] BERGMAN PRESUMP;C 6 MEM HOSP MEM HOSP PBL BEING INC INC READ DC OPT OBV ONLY HOSPITAL [address] [facility] 6 DM DAY PHYSICIAN MANAGEMEN SERVI T > 30 MIN SBSQ 56565 [facility] 6 DM CARE/DAY PHYSICIAN 25 SERVI MINUTES SBSQ 12109 [facility] 6 DM CARE/DAY PHYSICIAN 25 SERVI MINUTES ERCP 39748 [place] NICKL III STENT 6 MEDICAL SAMANTHA PLACEMENT SERV FOUNDATIO BILIARY/P N ANCREATIC DUCT CMBN NDSC 57712 [place] TRICIA CATHJ 6 MEDICAL SCO BILIARY&P SERV NCRTC FOUNDATIO DUCTAL N SYS RS&I DILATION [id number] [facility] COM BILE 6 Y Y DUCT [facility] DEVC ASHLEY/ART OP ENDO DIL PANC [id number] [facility] DUCT 6 Y Y INTRALUM [facility] DEV ASHLEY/ART OPENING ENDO EXCISION [id number] [facility] BILE 6 Y Y DUCT [facility] ASHLEY/ART OPEN[place] [address] [place] GRAHAM MELISSA ABDOMEN 6 MEDICAL W/O & SERV W/CONTRAS FOUNDATIO T N MATERIAL SBSQ 93532 [place] [address] DM CARE/DAY PHYSICIAN 25 SERVI MINUTES INITIAL 07011 [facility] 6 MEDICAL CARE/DAY SERV 30 FOUNDATIO MINUTES N SBSQ 50571 [place] [address] DM CARE/DAY PHYSICIAN 35 [place] [address] [place] YA ABDOMINAL 6 MEDICAL GLORIA REAL SERV TIME FOUNDATIO W/IMAGE N LIMITED INITIAL 62889 [facility] 6 DM MICHAEL CARE/DAY PHYSICIAN 70 SERVI MINUTES AMBULANCE A0428 [facility] SERVICE 6 AMBULANCE AMBULANCE [facility] SERVICE SERV[place] [address] [facility] B[facility] LIPASE 6 [facility] INC INC BLOOD 57335 [facility] COUNT 6 [facility] COMPLETE INC INC AUTO&AUTO DIFRNTL WBC COMPREHEN 46060 [facility] B[facility] SIVE 6 [facility] METABOLIC INC INC PANEL LOCM Q9967 [facility] B[facility] [phone] [facility] MG/ML INC INC IODINE CONCENTRA TION PER ML GROUND A0425 [facility] MILEAGE 6 AMBULANCE AMBULANCE PER SERVICE SERVICE STATUTE MILE AMBULANCE A0429 SURESH PRINCE SERVICE 6 [facility] AMBULANCE AMBULANCE EMERGENCY SE SE TRANSPORT THER 06854 [facility] PROPH/DX 6 MEM H[facility]OS[facility] NJX EA INC INC SEQL IV P[place] SBST/[place] [address] [facility] B[facility] AMYLASE 6 [place] [address] [facility] INFUSION 6 [facility] THERAPY/P INC INC ROPHYLAXI S /DX 1ST TO 1 HR THERAPEUT 80061 [facility] B[facility] IC 6 MEM [facility] INJECTION [place] [address] [facility] ABDOMEN & 6 MEDICAL JAKE PELVIS IMAGING W/CONTRAS ASS T MATERIAL INJECTION J2405 [facility]ERGMAN 6 MEM HOSP MEM HOSP ONDANSETR INC INC ON HCL PER 1 MG BASIC 90526 [facility] B[facility] METABOLIC 6 [facility] H[facility]OS[facility] PANEL INC INC CALCIUM TOTAL MRI 68022 [facility] ABDOMEN 6 MEDICAL REID W/[place] [address] [facility] B[facility]GM[facility] FREE 6 [facility] [place] [address] [facility] THYROID 6 MEM HOS[facility]OS[facility] STIMULATI INC INC NG HORMONE TSH BLOOD 69783 [facility]ERGM[facility] COUNT 6 MEM [facility]OS[facility] COMPLETE INC INC AUTO&AUTO DIFRNTL WBC LIPID 21662 [facility] B[facility] PANEL 6 [facility]OS[facility] INC INC HEPATIC 39394 [facility] FUNCTION 6 [facility] H[facility] PANEL INC INC COLLECTIO 02806 [facility] B[facility] N VENOUS 6 MEM HOS[facility] MEM HOSP BLOOD INC INC VENIPUNCT URE 3D 64399 ESSENCE BACK RENDERING 6 MEDICAL REID W/INTERP IMAGING & ASS POSTPROCE SS SUPERVISI ON DRUG TST G0477 [facility] B[facility]GM[facility] PRESUMP;C 6 MEM [facility]OSP MEM HOSP PBL BEING INC INC READ DC OPT OBV ONLY ECG 73294 [facility] ROUTINE 6 MEM [facility] ECG INC INC W/LEAST 12 LDS TRCG ONLY W/O I&R DRUG TEST G0481 [facility] DEFINITV [address] ID INC INC METH P DAY 8-14 DRUG CL CV STRS 17536 [facility] 6 PHYSICIAN XERS&/OR S GROUP RX CONT ECG W/O I&R MYOCARDIA 66005 ESSENCE HAMIL[facility] ALL L SPECT 6 MEDICAL MULTIPLE IMAGING STUDIES ASS SBSQ 90437 [place] [address] PHYSICIAN GLORIA CARE/DAY S GROUP 15 MINUTES INITIAL 68763 [place] [address] PHYSICIAN GLORIA CARE/DAY S [place] [address] [place] [address] ESSENCE HAMIL[facility] ALL ABDOMEN & 6 MEDICAL PELVIS IMAGING W/CONTRAS ASS T MATERIAL ECG 99618 [facility] PRADHAN JR ROUTINE 6 [facility] W/LEAST P 12 LDS I&R ONLY ECG 09622 [facility] PRADHAN JR ROUTINE 6 [facility] W/LEAST P 12 LDS I&R ONLY INITIAL 94716 [facility] 6 PHYSICIAN HANK CARE/DAY S GROUP 50 MINUTES GROUND A0425 SURESH PRINCE MILEAGE [address] [place] [address] PER AMBULANCE AMBULANCE STATUTE SE SE MILE AMB A0427 SURESH PRINCE SERVICE [address] [place] [address] ALS AMBULANCE AMBULANCE EMERGENCY [place] [address] ESSENCE HAMILTON ALL ABDOMEN & 6 MEDICAL PELVIS IMAGING W/O ASS CONTRAST MATERIAL DRUG TST G0483 [facility] DEFINITV [address] [address] ID INC INC METH P DAY 22/MORE DR CL DRUG TST G0477 PACHCEO BERGMAN PRESUMP;C 6 MEM HOSP MEM HOSP PBL BEING INC INC READ DC OPT OBV ONLY 3D 03911 ESSENCE BACK RENDERING 6 MEDICAL REID W/INTERP IMAGING & ASS POSTPROCE SS SUPERVISI ON MRI 52473 [facility] SP[facility]AL 6 MEDICAL REID CANAL IMAGING THORACIC ASS W/O CONTRAST MATRL MRI 15636 [facility] BACK SPINAL 6 MEDICAL REID CANAL IMAGING LUMBAR ASS W/O CONTRAST MATERIAL DRUG TST G0477 [facility]ERGMAN PRESUMP;C 6 MEM HOSP MEM HOSP PBL BEING INC INC READ DC OPT OBV ONLY F2 GENE 88146 [employer] ANALYSIS 6 , [employer] , [employer] 85979W >A VARIANT F5 19597 [employer] COAGULATI [employer] , [employer] ON FACTOR V ANAL LEIDEN VARIANT MTHFR 19643 [employer] , [employer] ANALYSIS COMMON VARIANTS ECG 85047 [facility] BERGMAN ROUTINE 6 [facility] ECG INC INC W/LEAST 12 LDS TRCG ONLY W/O I&R DUPLEX 35568 [place] [facility] ALL SCAN 6 MEDICAL EXTRACRAN IMAGING IAL ART ASS COMPL BI STUDY DRUG TST G0477 [facility] BERGMAN PRESUMP;C 6 MEM [facility] MEM HOSP PBL BEING INC INC READ DC OPT OBV ONLY THERAPEUT 58842 [facility] BERGM[facility] IC PX 1/> 5 [facility] AREAS INC INC EACH 15 MIN EXERCISES APPLICATI 30833 [facility] ON 5 [facility] MODALITY INC INC 1/> AREAS HOT/COLD PACKS APPL 97330 [facility]ERGMAN MODALITY 5 [facility] H[facility]OSP 1/> AREAS INC INC ELEC STIMJ UNATTENDE D E-STIM G0283 [facility] B[facility] 1/> AREAS 5 [facility]OS[facility] OTH THAN INC INC WND CARE PART TX PLAN MANUAL 66191 [facility] THERAPY 5 [facility] TQS 1/> INC INC REGIONS EACH 15 MINUTES E-STIM G0283 [facility] B[facility]GM[facility] 1/> AREAS 5 [facility]OSP OTH THAN INC INC WND CARE PART TX PLAN CARRY MOV G8984 [facility] B[facility] HANDLNG 5 MEM HOS[facility] HOS[facility] OBJ FCN INC INC LERMA CUR TX REP INTRVL APPL 52294 [facility] B[facility] MODALITY 5 MEM HOS[facility] MEM HOSP 1/> AREAS INC INC ELEC STIMJ UNATTENDE D PHYSICAL 16832 [facility] B[facility] THERAPY 5 MEM H[facility]OS[facility] EVALUATIO INC INC N THERAPEUT 13716 [facility] BERGMAN IC PX 1/> 5 MEM [facility]OS[facility]OSP AREAS INC INC EACH 15 MIN EXERCISES CAR MOV G8985 [facility] B[facility] HDLG OBJ 5 MEM HOS[facility]OS[facility] PROJ GOAL INC INC TX OUTSET&RE P INTRVL 3D 12298 [facility] BERGMAN RENDERING 5 MEM HOS[facility]OS[facility] W/INTERP INC INC & POSTPROCE SS SUPERVISI ON MRI 70978 [facility] BERGM[facility] SPINAL 5 MEM H[facility]OS[facility] CANAL INC INC CERVICAL W/O CONTRAST MATRL ANES 01283 RIVERA GAN UPPER GI 4 LTH SAMANTHA ENDOSCOPY ANESTHESI [place] [address] [place] SURG 4 [facility] PSC GROSS&GLORIA ROSCOPIC EXAM SPECIAL 91998 GUDELIA ESCALANTE STAIN 4 [facility] 1 CLINIC MICROORGA PSC NISMS I&R RADEX ABD [address]25 [facility] COMPL 4 [place] AQT ABD RADIOLOGY W/S/E/D ASSOCIAT VIEWS [address] [place] [address] [facility] ABDOMEN & 4 [place] PELVIS RADIOLOGY W/CONTRAS ASSOCIAT T MATERIAL ECHO 99759 CARDIOVAS ERIC TTHRC R-T 4 CULAR MAT 2D CONSULTAN W/WOM-MOD TS O E COMPL SPEC&COLR D CATH PLMT 58400 CARDIOVAS ERIC L HRT & 4 CULAR MAT ARTS CONSULTAN W/NJX & TS O ANGIO IMG S&I PRQ 10948 CARDIOVAS ERIC TRLUML 4 CULAR MAT CORONARY CONSULTAN STENT TS O W/ANGIO ONE ART/BRNCH INITIAL 12678 CARDIOVAS [facility] 4 CULAR MAT CARE/DAY CONSULTAN 70 TS O MINUTES RADIOLOGI 69234 [place] NAZANIN C 3 MEDICAL REID EXAMINATI IMAGING ON CHEST ASS SINGLE VIEW FRONTAL RADIOLOGI 92759 [facility] [place] YARELI C EXAM 3 RADIOLOGY RHO CHEST 2 VIEWS FRONTAL&L ATERAL RADIOLOGI 58786 [facility] C EXAM 3 [place] CHEST 2 RADIOLOGY VIEWS ASSOCIAT FRONTAL&[place] [address] [facility] HEAD/BRAI 3 [place] N W/O RADIOLOGY CONTRAST ASSOCIAT MATERIAL ELECTROEN 72719 MHC INC, MHC INC, CEPHALOGR 3 DATA NETWORK ARCHITECT DATA NETWORK ARCHITECT AM W/REC SURESH PRINCE AWAKE&ASL CO HOS CO HOS EEP RADEX 36749 [facility] SPINE 3 Y Y CERVICAL [facility] [address] [place] [address] [facility] HEAD/BRAI 3 Y Y N W/O HOSPITAL HOSPITAL CONTRAST MATERIAL RADEX 63378 [facility] SPINE 3 Y Y CERVICAL [facility] [address] [place] [address] [facility] THORACIC 3 Y Y SPINE W/O HOSPITAL HOSPITAL CONTRAST MATERIAL CT LUMBAR 68986 [facility] SPINE 3 Y Y W/[place] [address] [facility] CERVICAL 3 Y Y SPINE W/O HOSPITAL HOSPITAL CONTRAST MATERIAL INJECTION J1953 [facility] 3 Y Y LEVETIRAC [facility] ETAM 10 MG INFUSION J7050 [facility] NORMAL 3 Y Y SALINE [facility] SOLUTION 250 CC THERAPEUT 21319 [facility] IC 3 Y Y INJECTION [facility] IV PUSH EACH NEW DRUG INJECTION J2270 [facility] MORPHINE 3 Y Y SULFATE [facility] UP [place] 10 [place] [address] [facility] INFUSION 3 Y Y THERAPY/P [facility] ROPHYLAXI S /DX 1ST TO 1 HR AMB A0427 [facility] TAIWANESE SERVICE 3 AMBULETT AMBULETT ALS & & EMERGENCY AMBULANC AMBULANC TRANSPORT LEVEL 1 GROUND A0425 TAIWANESE TAIWANESE MILEAGE 3 AMBULETT AMBULETT PER & & STATUTE AMBULANC AMBULANC MILE ECG 44820 [facility] AHMED ADN ROUTINE 3 RURAL ECG HEALTH W/LEAST CLINIC 12 LDS I&[place] [address] ERVIN MATSON CERVICAL 3 JESSI SPINE W/O RADIOLOGY CONTRAST ASSOCIAT MATERIAL RADIOLOGI 37025 ERVIN MATSON C EXAM 3 JESSI CHEST 2 RADIOLOGY VIEWS ASSOCIAT FRONTAL&L ATERAL CT ORBIT 69243 ERVIN MATSON SELLA/POS 3 JESSI T RADIOLOGY FOSSA/EAR ASSOCIAT W/[place] [address] ERVIN MATSON HEAD/BRAI 3 JESSI N W/O RADIOLOGY CONTRAST ASSOCIAT MATERIAL FLUOR 15612 COMMON[facility] MITA II NEEDLE/CA 3 LTH SLEEP ELIAZAR TH AND REHA SPINE/PAR ASPINAL DX/THER ADDON MODERATE 61994 [facility] MITA II SEDATJ 3 LTH SLEEP ELIAZAR SAME AND REHA PHYS/QHP 5/>YRS INIT 30 MIN NJX 15853 [facility] MITA II DX/THER 3 LTH SLEEP ELIAZAR SBST AND REHA EPIDURAL/ SUBRACH CERV/THOR ACIC NJX 49532 [facility] DX/THER 3 [facility] SBST EPIDURAL/ SUBRACH CERV/THOR ACIC LOCM Q9966 [facility] 200-299 3 [facility] MG/ML IODINE CONCENTRA TION PER ML MODERATE 08941 COMMONWE[facility] MITA II SEDATJ 3 LTH SLEEP ELIAZAR SAME AND REHA PHYS/QHP 5/>YRS INIT 30 MIN FLUOR 76721 [facility] NEEDLE/CA 3 [facility] SPINE/PAR ASPINAL DX/THER ADDON TENS E0730 EMPI INC EMPI INC DEVICE 3 4/MORE LEADS MULTI NERVE STIMULATI ON TENS E0730 EMPI INC EMPI INC DEVICE 2 4/MORE LEADS MULTI NERVE STIMULATI ON RADIOLOGI 80415 ERVIN MATSON C EXAM 2 JESSI CHEST 2 RADIOLOGY VIEWS ASSOCIAT FRONTAL&L ATERAL FLUOR 14812 COMMON[facility] MITA II NEEDLE/CA 2 LTH SLEEP ELIAZAR TH AND REHA SPINE/PAR ASPINAL DX/THER ADDON NJX 90177 COMM[facility] MITA II DX/THER 2 LTH SLEEP ELIAZAR SBST AND REHA EPIDURAL/ SUBRACH CERV/THOR ACIC THERAPEUT 57469 VILLAFLOR VILLAFLOR IC 2 OSI OSI PROPHYLAC TIC/DX INJECTION SUBQ/IM INJECTION J1030 VILLAFLOR VILLAFLOR 2 OSI OSI METHYLPRE DNISOLONE ACETATE 40 MG INJECTION J3420 VILLAFLOR VILLAFLOR VIT B-12 2 OSI OSI CYANOCOBA KAREN TO 1000 MCG INJECTION J1885 MHC INC, MHC INC, 2 DATA NETWORK ARCHITECT DATA NETWORK ARCHITECT KETOROLAC SURESH SURESH CO HOS CO HOS TROMETHAM INE PER 15 MG RADEX 86824 [facility] 2 EIDER FIORELLA COMPLETE RADIOLOGY MINIMUM 2 ASSOCIAT VIEWS INJECTION J1030 VILLAFLOR VILLAFLOR 2 OSI OSI METHYLPRE DNISOLONE ACETATE 40 MG THERAPEUT 83639 VILLAFLOR VILLAFLOR IC 2 OSI OSI PROPHYLAC TIC/DX INJECTION SUBQ/IM INJECTION J3420 VILLAFLOR VILLAFLOR VIT B-12 2 OSI OSI CYANOCOBA KAREN TO 1000 MCG INJECTION J3420 VILLAFLOR VILLAFLOR VIT B-12 2 OSI OSI CYANOCOBA KAREN TO 1000 MCG THERAPEUT 79908 VILLAFLOR VILLAFLOR IC 2 OSI OSI PROPHYLAC TIC/DX INJECTION SUBQ/IM INJECTION J1030 VILLAFLOR VILLAFLOR 2 OSI OSI METHYLPRE DNISOLONE ACETATE 40 MG NJX 30091 RIVER[facility] FAN II DX/THER 2 LTH SLEEP ELIAZAR SBST AND REHA EPIDURAL/ SUBRACH CERV/THOR ACIC MODERATE 01865 [facility] FAN II SEDATJ 2 LTH SLEEP ELIAZAR SAME AND REHA PHYS/QHP 5/>YRS INIT 30 MIN ECG 93294 BRONSON HARDING HARDING BRONSON ROUTINE 1 MD ECG CONSULTIN W/LEAST G SRV 12 LDS I&R ONLY INJECTION J3420 VILLAFLOR VILLAFLOR VIT B-12 1 OSI OSI CYANOCOBA KAREN TO 1000 MCG THERAPEUT 78797 VILLAFLOR VILLAFLOR IC 1 OSI OSI PROPHYLAC TIC/DX INJECTION SUBQ/IM THERAPEUT 62876 VILLAFLOR VILLAFLOR IC 1 OSI OSI PROPHYLAC TIC/DX INJECTION SUBQ/IM INJECTION J3420 VILLAFLOR VILLAFLOR VIT B-12 1 OSI OSI CYANOCOBA KAREN TO 1000 MCG RENAL 34116 SURESH PRINCE FUNCTION 1 CO [facility] COLLECTIO 28399 SURESH PRINCE N VENOUS [address] [facility] VENIPUNCT URE RADEX 46150 [facility] SPINE 1 Y Y CERVICAL [facility] 2 OR 3 VIEWS NASOPHARY 72044 [place] GAL THO NGOSCOPY 1 MEDICAL W/ENDOSCO SERV PE SPX FOUNDATIO ELECTROLY 34969 SURESH PRINCE TE PANEL 1 [facility] COLLECTIO 47707 SURESH PRINCE N VENOUS [address] [facility] VENIPUNCT URE RADEX 81616 [place] DISANTIS SPINE 1 MEDICAL TIANNA CERVICAL SERV 2 OR 3 FOUNDATIO VIEWS OPTX&/RDC 65508 [facility] TJ VRT 1 [place] ASH FX&/DISLC PHYSICIAN PST 1 S ASSIST VRT SGM EA ARTHRODES 94270 [facility] IS 1 [place] ASH PST/PSTLA PHYSICIAN T S ASSIST CERVICAL BELW C2 SGM ARTHRODES 87246 [facility] IS 1 [place] ASH POSTERIOR PHYSICIAN /POSTEROL S ASSIST ATERAL EA ADDL OPTX&/RDC 87449 [facility] TJ VRT 1 [place] ASH FX&/DISLC PHYSICIAN PST 1 S ASSIST VRT SGM CR POSTERIOR 23444 [facility] 1 [place] ASH SEGMENTAL PHYSICIAN S ASSIST INSTRUMEN TATION 3-6 VRT SEG INSJ 49002 [place] MARIE NON-TUNNE 1 MEDICAL DEDRA LED SERV CENTRAL FOUNDATIO VENOUS CATH AGE 5 YR/> ARTL 08617 [place] MARIE CATHJ/CAN 1 MEDICAL D[facility]RA NULJ SERV MNTR/FORBES FOUNDATIO SFUSION SPX PRQ ANESTHESI 13391 [place] MARIE A 1 MEDICAL DEDRA EXTENSIVE SERV SPINE & FOUNDATIO SPINAL CORD RADEX 48565 [place] CABRAL JAM SPINE 1 1 MEDICAL VIEW SERV SPECIFY FOUNDATIO LEVEL SBSQ 42112 [facility] 1 Y OF N CARLITOS CARE/DAY [place] 25 INTER MINUTES INITIAL 70336 [place] [facility] 1 MEDICAL [facility] CARE/DAY SERV 30 FOUNDATIO MINUTES ELECTROEN 83788 [place] BENSALEM CEPHALOGR 1 MEDICAL DOMINIK AM W/REC SERV AWAKE&GILBERT FOUNDATIO WSY ECHO 58012 [place] DERIK TTHRC R-T 1 MEDICAL ALI 2D SERV W/WOM-MOD FOUNDATIO E COMPL SPEC&COLR D INITIAL 36249 [place] [facility] 1 MEDICAL CARE/DAY SERV 70 FOUNDATIO MINUTES COLLECTIO 36222 SURESH PRINCE N VENOUS 1 CO CO BLOOD [facility] [place] [address] SURESH PRINCE INFUSION 1 CO CO HYDRATION [facility] INITIAL 31 MIN-1 HOUR ECG 44452 [place] DMITRY C ROUTINE 1 MEDICAL ECG SERV W/LEAST FOUNDATIO 12 LDS I&R ONLY BLOOD 48984 SURESH PRINCE COUNT 1 CO CO SMEAR [facility] MCRSCP W/[place] [address] SURESH PRINCE INFUSION 1 CO CO THERAPY/P HOSPITAL HOSPITAL ROPHYLAXI S /DX [address] [place] [address] [place] NICKELS THORACIC 1 MEDICAL TIANNA SPINE W/[place] [address] SURESH PRINCE HEAD/BRAI 1 CO CO N W/[place] [address] SURESH PRINCE MAXILLOFA 1 CO CO CIAL W/[place] [address] SURESH PRINCE CERVICAL 1 CO CO SPINE W/O HOSPITAL HOSPITAL CONTRAST MATERIAL MRI 38638 [facility] [place] SHAYNE SPINAL 1 RADIOLOGY HANK CANAL CERVICAL W/[place] [address] TITI HARRISONHAFARHANRI ANGIOGRAP 1 MEDICAL ABD HY NECK SERV W/CONTRAS FOUNDATIO T/NONCONT RAST CT LUMBAR 50534 TITI NICKELS SPINE 1 MEDICAL TIANNA W/O SERV CONTRAST FOUNDATIO MATERIAL COMPREHEN 73398 SURESHANDREINA PRINCE SIVE 1 [facility] PANEL BLO[facility] 45789 SURESH PRINCE COUNT 1 CO CO [facility] AUTO&AUTO DIFRNTL WBC THER 64316 SURESH SURESH PROPH/DX 1 CO CO NJX [facility] PUSH SINGLE/1S T SBST/DRUG DEMO&/GLENNY 93121 [place] [facility] L OF PT 1 [facility] AERSL GEN/NEB/I NHLR/IP ECG 83834 [place] ROUTINE 1 [facility] W/LEAST 12 LDS TRCG ONLY W/O I&[place] [address] [place] TROPONIN 1 [facility] FARTUN BLOOD 81449 [place] COUNT 1 [facility] AUTO&AUTO DIFRNTL WBC COMPREHEN 50396 [facility] [facility] SIVE 1 [facility] PANEL RADIOLOGI 95458 [facility] [facility] C EXAM 1 [facility] CHEST [address] [place] [address] HOSPITAL VIEWS FRONTAL&[place] [address] [place] INFUSION 1 [facility] THERAPY/P HOSPITAL HOSPITAL ROPHYLAXI S /DX 1ST TO 1 HR URNLS DIP 14305 [place] 1 [facility] STICK/TAB HOSPITAL HOSPITAL LET REAGENT AUTO MICROSCOP Y THERAPEUT 26270 [facility] [facility] IC 1 [facility] INJECTION [facility] IV PUSH EACH NEW DRUG ECG 82804 MOOKIE DICKINSON ROUTINE 1 EMERGENCY ECG SERVICES W/LEAST 12 LDS [place] [address] [place] INFUSION 1 [facility] HYDRATION [facility] EACH ADDITIONA L HOUR CREATINE 89341 [facility] KINASE MB 1 [facility] H[facility] ONLY COLLECTIO 31314 [facility] N VENOUS 1 [facility] VENIPUNCT URE CREATINE 64365 [facility] KINASE 1 [facility] TOTAL [facility] LOC Q9967 [facility] [phone] 1 [facility] MG/ML [facility] IODINE CONCENTRA TION PER ML CT THORAX 22712 [facility] [place] JAMIE MAT W/O & 1 RADIOLOGY W/CONTRAS T MATERIAL THERAPEUT 77286 VILLAFLOR VILLAFLOR IC 0 OSI OSI PROPHYLAC TIC/DX INJECTION SUBQ/IM THERAPEUT 98888 VILLAFLOR VILLAFLOR IC 0 OSI OSI PROPHYLAC TIC/DX INJECTION SUBQ/IM INJECTION J3420 VILLAFLOR VILLAFLOR VIT B-12 0 OSI OSI CYANOCOBA KAREN TO 1000 MCG IIV3 58348 VILLAFLOR VILLAFLOR VACCINE 0 OSI OSI SPLIT VIRUS 0.5 ML DOSAGE IM USE ADMINISTR G0008 VILLAFLOR VILLAFLOR ATION OF 0 OSI OSI INFLUENZA VIRUS VACCINE LIPID 03388 SURESH PRINCE PANEL 0 CO [facility] HEPATIC 53507 SURESH PRINCE FUNCTION 0 CO [place] [address] SURESH PRINCE FREE 0 [facility] THYROXINE [facility] [address] SURESH PRINCE THYROID 0 CO NE STIMULATI [facility] NG HORMONE TSH COLLECTIO 89760 SURESH PRINCE N VENOUS 0 [facility] BLOOD [facility] VENIPUNCT URE CT THORAX 18934 [facility] [place] YARELI W/O 0 RADIOLOGY RHO CONTRAST MATERIAL INJECTION [id number] VILLAFLOR VILLAFLOR VIT B-12 0 OSI OSI CYANOCOBA KAREN TO 1000 MCG [place] HRT 14741 CARDIOLOG SAVANNAH CATHETERI 0 Y ANT ZATION ASSOCIATE [place] [address] CARDIOLOG SAVANNAH C-CATHJ 0 Y ANT F/SLCTV C ASSOCIATE ANGRPH S OF [place] I SI&R 37069 CARDIOLOG SAVANNAH F/NJX PX 0 Y ANT DURING ASSOCIATE C-CATHJ S OF [place] VENTR&/AT R ANGRPH I SI&R 80793 CARDIOLOG SAVANNAH F/NJX PX 0 Y ANT DURING ASSOCIATE C-CATHJ S OF [place] PULM&/OR SELECT INJECTION 54793 CARDIOLOG SAVANNAH CARDIAC 0 Y ANT CATHJ L ASSOCIATE VENTR/L S OF [place] ATR ANGIOGRAP H INJECTION J1030 VILLAFLOR VILLAFLOR 0 OSI OSI METHYLPRE DNISOLONE ACETATE 40 MG BASIC 33692 SURESH PRINCE METABOLIC 0 CO [facility] CALCIUM TOTAL BLOOD 28327 SURESH PRINCE COUNT 0 CO [facility] MCRSCP W/MNL DIFRNTL WBC COUNT COLLECTIO 28149 SURESH PRINCE N VENOUS 0 CO [facility] VENIPUNCT URE BLOOD 61453 SURESH PRINCE COUNT 0 CO [facility] AUTO&AUTO DIFRNTL WBC ECG 01554 [facility] HARDING BRONSON ROUTINE 0 MD ECG CONSULTIN W/LEAST G SRV 12 LDS W/I&R ECG 51569 [facility] HARDING BRONSON ROUTINE 0 MD ECG CONSULTIN W/LEAST G SRV 12 LDS W/I&R POLYSOM 01804 [facility] HARDING BRONSON 6/>YRS 0 MD SLEEP 4/> CONSULTIN ADDL G SRV NAY ATTND POLYSOM 14784 [place] [facility] 6/>YRS 0 COMMUNITY COMMUNITY SLEEP 4/> HOSPITAL HOSPITAL ADDL NAY ATTND INJECTION J2785 [facility] HARDING, 0 MD PANCHITO Treviño REGADENOS CONSULTIN ON 0.1 MG G SRV PSC CV STRS 21409 [facility] HARDING, TST 0 MD PANCHITO Treviño XERS&/OR CONSULTIN RX CONT G SRV PSC ECG W/SI&R MYOCARDIA 44680 [facility] HARDING, L SPECT 0 MD PANCHITO Tre[place]ño MULTIPLE CONSULTIN STUDIES G SRV PSC TECHNETIU A9500 [facility] HARDING, M TC-99M 0 MD PANCHITO Treviño SESTAMIBI CONSULTIN DX PER G SRV PSC STUDY DOSE CREATININ 73746 [facility] E BLOOD 0 [facility] [place] [address] [facility] UREA 0 [facility] QUANTITAT FARTUN COLLECTIO 96528 [facility] N VENOUS 0 [facility] VENIPUNCT URE LOCM Q9967 [facility] [phone] [facility] MG/ML [facility] IODINE CONCENTRA TION PER ML ECG 38970 BRON[facility] HARDING HARDING, ROUTINE 0 MD PANCHITO Treviño ECG CONSULTIN W/LEAST G SRV PSC 12 LDS I&[place] [address] [facility] [place] Mary MUÑOZ HEAD/BRAI 0 RADIOLOGY T N W/O & W/CONTRAS T MATERIAL CT THORAX 79544 [facility] [place] TONI G 0 RADIOLOGY T W/CONTRAS T MATERIAL ECG 13247 BR[facility] HARDING HARDING BRONSON ROUTINE 0 MD ECG CONSULTIN W/LEAST G SRV 12 LDS W/I&R ECHO 44632 [facility]ON[facility] HARDING HARDING BRONSON TTHRC R-T 0 2D CONSULTIN W/WOM-MOD G SRV E COMPL SPEC&COLR D RADIOLOGI [address]33 [place] TRAN EXAM 0 VLADIMIR S CHEST 2 RADIOLOGY VIEWS FRONTAL&L ASSOCIATE ATERAL S PSC CT THORAX [address]697 [place] FRASER, W/O 0 VLADIMIR S CONTRAST RADIOLOGY MATERIAL ASSOCIATE S [facility] 3D 84556 AVELDAYAN TRAN 0 VLADIMIR S W/INTERP RADIOLOGY & POSTPROCE ASSOCIATE SS S PSC SUPERVISI ON RADIOLOGI [address] [place] TRAN EXAM 0 VLADIMIR S CHEST 2 RADIOLOGY VIEWS FRONTAL&L ASSOCIATE ATERAL S PSC RADIOLOGI 65990 [place] IJEOMA Gotti EXAM 0 EIDER, CHEST 2 RADIOLOGY TSAS VIEWS K FRONTAL&L ASSOCIATE ATERAL S PSC RADIOLOGI 67980 [place] IJEOMA C EXAM 0 [place], CHEST 2 RADIOLOGY STAS VIEWS K FRONTAL&L ASSOCIATE ATERAL S PSC RADIOLOGI 25542 ALTURA Shen MATSON EXAM 0 FABRICE C CHEST 2 RADIOLOGY VIEWS FRONTAL&L ASSOCIATE ATERAL S PSC RADIOLOGI 99122 ALTURA DANO C EXAM 0 JESSI CHEST 2 RADIOLOGY VIEWS ASSOCIAT FRONTAL&L ATERAL OBSERVATI 67751 [facility] BOWMAN, ON CARE 0 INPATIENT JOAQUINA H DISCHARGE MEDICINE ASSOC MANAGEMEN T INITIAL 35796 [facility] BOWMAN, OBSERVATI 0 INPATIENT JOAQUINA H ON MEDICINE CARE/DAY ASSOC 50 MINUTES RADIOLOGI 11274 CNTRL TITI DOWNS C 0 RADIOLOGY SOURAV G EXAMINATI ON CHEST SINGLE VIEW FRONTAL RADIOLOGI 98867 ALTURA Shen MATSON EXAM 0 FABRICE C CHEST 2 RADIOLOGY VIEWS FRONTAL&L ASSOCIATE ATERAL S PSC RADIOLOGI 29572 [facility]MON[facility] MARTÍNEZ 0 FABRICE C EXAMINATI RADIOLOGY ON CHEST SINGLE ASSOCIATE VIEW S PSC FRONTAL MRI 35587 [facility] SPINAL [address] [place] [address] THORACIC W/[place] [address] CNTR[place] CLEMONS, CERVICAL 9 RADIOLOGY SONJA A SPINE W/O CONTRAST MATERIAL MRI 99216 [facility] SPINAL [address] [place] [address] CERVICAL W/[place] [address] LAB AMANDA LAB AMANDA GLUTAMYLT 9 [employer] RASE [employer] HOLDING GAMMA BASIC 62296 LAB AMANDA LAB AMANDA METABOLIC 9 [employer]IC [employer] PANEL HOLDING HOLDING CALCIUM TOTAL BLOOD 88370 LAB AMANDA LAB AMANDA COUNT 9 [employer] AMER[employer] COMPLETE HOLDING HOLDING AUTO&AUTO DIFRNTL WBC TRANSFERA 86542 LAB AMANDA LAB AMANDA SE 9 AMERIC AMER[employer] ASPARTATE HOLDING HOLDING AMINO AST SGOT TRANSFERA 53652 LAB AMANDA LAB AMANDA SE 9 [employer]IC AMER[employer] ALANINE HOLDING HOLDING AMINO ALT SGPT COLLECTIO 64925 LAB AMANDA LAB AMANDA N VENOUS 9 [employer]IC AMERIC BLOOD [place] [address] LAB AMANDA LAB AMANDA PHOSPHATA 9 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, COMPL 9 VLADIMIR S AQT ABD RADIOLOGY W/S/E/D VIEWS 1 ASSOCIATE VIEW S [facility] RADIOLOGI 34948 ALTURA FRASER, C EXAM 9 VLADIMIR S CHEST 2 RADIOLOGY VIEWS FRONTAL&L ASSOCIATE ATERAL S PSC RADEX ABD 59091 CNTRL [place] YARELI, COMPL 9 RADIOLOGY SOURAV G AQT ABD W/S/E/D VIEWS 1 VIEW [facility] 04648 FLAKO ARRIOLA, DISCHARGE 9 [facility] DAY MANAGEMEN T 30 MIN/< SBSQ 27352 [facility] EDMUNDSON 9 [facility] ZELALEM CARE/DAY 35 MINUTES RADEX ABD 19334 [facility] COMPL 9 EIDER, AQT ABD RADIOLOGY STAS W/S/E/D K VIEWS 1 ASSOCIATE VIEW [facility] CT PELVIS 90743 [facility] W/O 9 [place], CONTRAST RADIOLOGY STAS MATERIAL K [place] [facility] [address] [facility] ABDOMEN 9 [place], W/O RADIOLOGY STAS CONTRAST K MATERIAL ASSOCIATE S [facility] INITIAL 13379 [facility] EDMUNDSON 9 [place] ZELALEM CARE/DAY 70 MINUTES HOSPITAL G0378 [facility] OBSERVATI 9 [facility] SERVICE PER HOUR EGD 36248 [facility] TRANSORAL [address] [place] [address] BLEEDING ANY METHOD ANES 86872 TITI OLIVAREZ, UPPER GI 9 ANESTHESI ITZ ENDOSCOPY A GROUP PROXIMAL PSC TO DUODENUM ECG 90846 [facility] ROUTINE [address] [place] [address] HOSPITAL W/LEAST 12 LDS TRCG ONLY W/O I&R OBSERVATI 21210 ESSENCE BOWMAN, ON [facility] 9 INPATIENT JOAQUINA H DISCHARGE MEDICINE ASSOC MANAGEMEN T COMPREHEN 82229 [facility] SIVE 9 [facility] PANEL BLOOD 53781 [facility] COUNT [address] [place] [address] [place] [address] [facility] ABDOMEN 9 [facility] W/CONTR HOSPITAL HOSPITAL T MATERIAL HI OSM Q9963 [facility] CONTRST 9 [facility] [phone] MG/ML IODINE CONC ML INITIAL 59692 DAVID NAYLOR 9 INPATIENT JOAQUINA H ON MEDICINE CARE/DAY ASSOC 70 MINUTES COLLECTIO 79240 [facility] N VENOUS 9 [facility] VENIPUNCT URE THER 96872 SHAUN DUNN PROPH/DX 9 [facility] NJX IV HOSPITAL HOSPITAL PUSH SINGLE/1S T SBST/DRUG BLOOD 10624 [facility] COUNT [address] [facility] HOSPITAL MCRSCP W/MNL DIFRNTL WBC COUNT THERAPEUT 87346 [facility] IC 9 [facility] INJECTION [facility] [place] [address] [facility] TROPONIN 9 [facility] [place] [address] [facility] D[facility] AMYLASE 9 [facility] CREATINE 77186 [facility] KINASE MB 9 [facility] HOSPITAL ONLY INJECTION J2765 [facility]N [address] [place] [address] HOSPITAL AMIDE HCL UP [place] 10 [place] [address] [facility] INFUSION 9 [facility] EACH ADDITIONA L HOUR [place] PELVIS 41420 CNTRL TITI DE LA O, 9 RADIOLOGY MALVIN D W/CONTRAS T MATERIAL RADIOLOGI 40648 SHAUN DUNN C EXAM 9 [facility] CHEST 2 [facility] HOSPITAL VIEWS FRONTAL&L ATERAL PROTHROMB 86708 SHAUN DUNN IN TIME 9 [facility] [place] [address] [facility] D[facility] LIPASE [address] [place] [address] CREATINE 01142 [facility] KINASE 9 [facility] RADEX ABD 78791 ALTURA IJEOMA COMPL 9 EIDER, AQT ABD RADIOLOGY STAS W/S/E/D K VIEWS 1 ASSOCIATE VIEW CH S [facility] RADIOLOGI 52670 [facility] SPENCERDarlin C EXAM 9 EIDER, CHEST 2 RADIOLOGY STAS VIEWS K FRONTAL&L ASSOCIATE ATERAL S [facility] Encounters Encounter Start End Date Code Location Performer Type Date EMERGENCY 68862 EDDIE JOHNSON DEPT 7 7 PHYSICIAN VISIT S, [facility] HIGH SEVERITY& THREAT [facility] - 7 7 [facility] OUTPATIEN INC T EMERGENCY 64574 [facility] 7 7 [facility] DEPARTMEN INC T VISIT MODERATE SEVERITY OFFICE 22508 OMAR WATSON OUTPATIEN 7 7 DEDRA MAXWELL T VISIT ,[facility] 25 MINUTES OFFICE 90707 OMAR NELSON OUTPATIEN 7 7 Yunier MAXWELL VISIT ,[facility] 25 MINUTES OFFICE 05373 OMAR WATSON OUTPATIEN 7 7 DEDRA MAXWELL T VISIT ,[facility] 25 MINUTES OFFICE 94303 OMAR OSORIO OUTPATIEN 6 6 FLOWER MAXWELL MD,[facility] MINUTES HOSPITAL [facility] - 6 6 [facility] OUTPATIEN [facility] T EMERGENCY 77972 EDDIE LEDESMA 6 6 PHYSICIAN U [facility] S, [facility] T VISIT HIGH/URGE NT SEVERITY EMERGENCY 16293 [facility] 6 6 [facility] DEPARTMEN INC T VISIT MODERATE SEVERITY EMERGENCY 96756 [facility] 6 6 [facility] DEPARTMEN INC T VISIT LOW/MODER SEVERITY EMERGENCY 32646 EDDIE LEDESMA 6 6 PHYSICIAN U [facility] S, [facility] T VISIT HIGH/URGE NT SEVERITY HOSPITAL [facility] - 6 6 [facility] OUTPATIEN INC T HOSPITAL [facility] - 6 6 [facility] OUTPATIEN INC T EMERGENCY 88665 [facility] 6 [facility] T VISIT LIMITED/M INOR PROB EMERGENCY 87250 EDDIE JOHNSON 6 6 PHYSICIAN RADHA NAVA S, [facility] T VISIT HIGH/URGE NT SEVERITY OFFICE 55593 TITI SOLISL III OUTPATIEN 6 6 MEDICAL SAMANTHA T VISIT SERV 25 FOUNDATIO MINUTES N HOSPITAL [facility] - 6 6 [facility]PATIEN INC T HOSPITAL [facility] - OTHER 6 6 MEM [facility]OS[facility] INC EMERGENCY 67580 [facility] 6 6 [facility] T VISIT LIMITED/M INOR PROB HOSPITAL [facility] - 6 6 [facility] OUTPATIEN [facility] T EMERGENCY 00731 EDDIE JOHNSON 6 6 PHYSICIAN RADHA NAVA S, [facility] T VISIT MODERATE SEVERITY HOSPITAL [facility] - 6 6 [facility] OUTPATIEN INC T OFFICE 49357 [facility] OUTPATIEN 6 6 PHYSICIAN GLORIA T VISIT S GROUP 25 MINUTES HOSPITAL [facility] - OTHER 6 6 [facility] INC OFFICE 81978 [facility] 6 6 PHYSICIAN GLORIA T VISIT S GROUP 15 MINUTES EMERGENCY 91294 TITI AL GALI 6 6 MEDICAL DEPARTMEN SERV T VISIT FOUNDATIO MODERATE N SEVERITY EMERGENCY 05380 EDDIE GILLESPIE 6 6 [facility], [facility] T VISIT MODERATE SEVERITY HOSPITAL [facility] - 6 6 [facility] OUTPATIEN [facility] T EMERGENCY 37032 [facility] 6 6 [facility] T VISIT LOW/MODER SEVERITY OFFICE 87143 JULIO WALTON, OUTPATIEN 6 6 JAM T NEW 30 ORTHOPAED MINUTES [facility] PACHECO - OTHER 6 6 MEM [facility] INC OFFICE 75823 [facility] OUTPATIEN 6 6 PHYSICIAN GLORIA T VISIT S GROUP 15 MINUTES OFFICE 96217 [facility] OUTPATIEN 6 6 PHYSICIAN GLORIA T VISIT S GROUP 25 MINUTES HOSPITAL [facility] - OTHER 6 6 [facility] UNIVERSIT 6 6 Y INPATIENT HOSPITAL EMERGENCY 02813 [facility] DEPT 6 6 PHYSICIAN RADHA VISIT S, [facility] HIGH SEVERITY& THREAT [facility] UNIVERSIT - 6 6 Y [facility] HOSPITAL [facility] 6 6 [facility] 27991 [facility] 6 6 PHYSICIAN GLORIA T VISIT S GROUP 15 MINUTES HOSPITAL [facility] - 6 6 [facility] 46165 EDDIE [facility] DE[facility] 6 6 PHYSICIAN U JAKE VISIT S, [facility] HIGH SEVERITY& THREAT [facility] - OTHER 6 6 [facility] - OTHER 6 6 [facility] - 6 6 [facility] 6 6 [facility] - OTHER 6 6 [facility] OFFICE 13773 [facility] OUTPATIEN 5 5 PHYSICIAN GLORIA T VISIT S GROUP 15 MINUTES HOSPITAL [facility] - 5 5 [facility] - 5 5 [facility] 4 4 [facility] OFFICE 59934 [facility] 4 4 COUNTY T VISIT RURAL 15 HEALTH MINUTES CLINIC, [facility] 4 4 [facility] OFFICE 71379 [facility] 4 4 COUNTY T VISIT RURAL 15 HEALTH MINUTES [facility], [facility] 3 3 [facility] HEALTH OFFICE 64670 [facility] 3 3 [facility] T VISIT [facility] 15 HEALTH MINUTES OFFICE 81824 [facility] 3 3 RURAL T VISIT HEALTH 15 CLINIC MINUTES CLINIC, [facility] RURAL 3 3 [facility]ICAL [facility], ACCESS 3 3 [facility] OFFICE 73710 RIVERA FAN II OUTPATIEN 3 3 [facility] SLEEP ELIAZAR T VISIT AND REHA 15 MINUTES [facility] UNIVERSIT - 3 3 Y [facility] T OFFICE 52784 [facility] 3 RURAL T VISIT HEALTH 15 CLINIC MINUT[facility] CLINIC, [facility] RURAL 3 3 [facility] CLINIC EMERGENCY 74483 UNIVERSIT 3 3 [facility] T VISIT HIGH/URGE NT SEVERITY [facility] UNIVERS - 3 3 [facility] - 3 3 [facility] T OFFICE 71442 [facility] 3 3 RURAL T VISIT HEALTH 15 CLINIC MINUTES CLINIC, [facility]URAL 3 3 [facility] OFFICE 79334 [facility] 2 2 RURAL T VISIT HEALTH 15 CLINIC MINUTES CLINIC, [facility] 2 2 [facility] CLINIC OFFICE 58836 RIVERA FAN II OUTPATIEN 2 2 [facility] SLEEP ELIAZAR T VISIT AND REHA 15 MINUTES OFFICE 36583 CARDIOVAS LUCERO OUTPATIEN 2 2 ULAR & ANT T VISIT THORACIC 15 ASS MINUTES CRITICAL [facility], ACCESS 2 2 [facility] HOS OFFICE 74633 COMMONREBECCAA MITA II OUTPATIEN 2 2 LT SLEEP ELIAZAR T VISIT AND REHA 15 MINUTES EMERGENCY 26156 [facility], 2 2 DATA NETWORK [facility] NE HOS MODERATE SEVERITY CRITICAL [facility], ACCESS 2 2 [facility] 49888 [facility] 2 OSI OSI T VISIT 15 MINUTES OFFICE 66370 COMMONWEA MITA II OUTPATIEN 1 1 LT SLEEP ELIAZAR T NEW 30 AND REHA MINUTES OFFICE 76237 [facility] OUTPATIEN 1 1 OSI OSI T VISIT 25 MINUTES CRITICAL SURES[facility] ACCESS 1 1 [facility] UNIVERSIT - 1 1 [facility] T OFFICE 11560 [place] [facility] OUTPATIEN 1 1 MEDICAL T NEW 30 SERV MINUTES FOUNDATIO OFFICE 63008 [facility] OUTPATIEN 1 1 OSI OSI T VISIT 40 MINUTES CRITICAL [facility] ACCESS 1 1 [facility] SURESH - [address] [facility] T EMERGENCY 06967 SURES[facility] DEPT 1 1 [facility] HIGH SEVERITY& THREAT FUNCJ CRITICAL SURESH ACCESS 1 1 [facility] EMERGENCY 91760 SURESH 1 1 [facility] T VISIT LIMITED/M INOR [facility] [place] - 1 1 [facility] T EMERGENCY 43685 [place] 1 1 [facility] T VISIT HIGH/URGE NT SEVERITY EMERGENCY 44759 [facility] DEPT 1 1 EMERGENCY VISIT SERVICES HIGH SEVERITY& THREAT FUNCJ OFFICE 30342 CARDIOVAS LUCERO OUTPATIEN 1 1 ULAR & ANT T VISIT THORACIC 15 ASS MINUTES HOSPITAL [place] - 1 1 [facility] T OFFICE 78372 [facility] 0 0 OSI OSI T VISIT 15 MINUTES OFFICE 55217 MELENDE[facility]- MELENDEZ- OUTPATIEN 0 0 CROW CROW T NEW 45 GEOVANNY GEOVANNY MINUTES CRITICAL SURESH ACCESS 0 0 [facility] CRITICAL SURESH ACCESS 0 0 [facility] OFFICE 39827 CARDIOVAS LUCERO OUTPATIEN 0 0 ULAR & ANT T NEW 60 THORACIC MINUTES [facility] [place] - 0 0 [facility] T CRITICAL SURESH ACCESS 0 0 [facility] OFFICE 90920 [facility] BRONSON OUTPATIEN 0 0 MD T VISIT CONSULTIN 15 G SRV MINUTES OFFICE 38231 [facility] BRONSON OUTPATIEN 0 0 MD T VISIT CONSULTIN 15 G SRV MINUTES [facility] [place] - 0 0 [facility] T OFFICE 20482 V[facility] VILLA[facility]OR OUTPATIEN 0 0 , JAG M JAG M T VISIT 15 MINUTES OFFICE 91939 [facility] OUTPATIEN 0 0 , JAG M JAG M T VISIT 15 MINUTES OFFICE 01369 [facility], OUTPATIEN 0 0 MD PANCHITO Treviño T VISIT CONSULTIN 15 G SRV PSC MINUTES [facility]OSP[facility] [place] - 0 0 [facility] T OFFICE 25659 [facility] 0 0 T VISIT CONSULTIN 25 G SRV MINUTES HOSPITAL UNIVERSIT - 9 9 [facility] T EMERGENCY 42568 S[facility] 9 9 [facility] T VISIT LOW/MODER SEVERITY EMERGENCY 10256 TITI TIJERINA, 9 9 MEDICAL [facility] T VISIT FOUNDATIO MODERATE SEVERITY EMERGENCY 55364 S[facility] 9 9 [facility] T VISIT LOW/MODER SEVERITY EMERGENCY 51458 SURESH ARRIOLA, 9 9 [facility] T VISIT MODERATE SEVERITY CRITICAL SURESH ACCESS 9 9 [facility] OFFICE 69560 [facility] 9 9 ELEANOR MAXWELL T VISIT 5 M.D.P.S.C MINUTES . H[facility] 9 9 [facility] T OFFICE 15243 [facility] [place] [facility]PART[facility] 9 9 MARCIO MAXWELL T NEW 30 M.D.P.S.C MINUTES . EMERGENCY 73180 [facility] ROHINI, DEPT 9 9 DM GUY VISIT EMERGENCY A HIGH PHYS INC SEVERITY& THREAT FUNJ EMERGENCY 16664 [place] 9 9 [facility] T VISIT HIGH/URGE NT SEVERITY [facility] 9 [facility] T EMERGENCY 75809 MELBA TSAI, 9 9 [facility] T VISIT HIGH/URGE NT SEVERITY
--- OUTSIDE RECORDS SUMMARY | 2017-03-07 14:00 | External Medical Summary Rpt ---
Author Author ELLADIOR Medrano, [facility] [employer] Organization [employer] Address Unknown Phone Unavailable Results Amylase [Enzymatic activity/volume] in Serum or Plasma Observa Value Referen Units Interpr Notes Date tion ce etation Range Amylase 25 - 115 U/L Normal No Oct 29 [Enzymati informati 2017 4:15 c on in PM activity/ source volume] data in Serum or Plasma Comprehensive metabolic 2000 panel in Serum or Plasma Observa Value Referen Units Interpr Notes Date tion ce etation Range Albumin/G 1.1 - 1.8 No Low No Oct 29 lobulin informati informati 2017 4:15 [Mass on in on in PM ratio] in source source Serum or data data Plasma Albumin 3.4 - 5.0 gm/dL Normal No Oct 29 [Mass/vol informati 2016 4:15 ume] in on in PM Serum or source Plasma data Alkaline 46 - 116 U/L High No Oct 29 phosphata informati 2017 4:15 se on in PM [Enzymati source c data activity/ volume] in Serum or Plasma Bilirubin 0.2 - 1.0 mg/dL Normal No Oct 29 .total informati 2017 4:15 [Mass/vol on in PM ume] in source Serum or data Plasma Urea 7 - 18 mg/dL Normal No Oct 29 nitrogen informati 2017 4:15 [Mass/vol on in PM ume] in source Serum or data Plasma Calcium 8.5 - mg/dL Normal No Oct 29 [Mass/vol 10.1 informati 2017 4:15 ume] in on in PM Serum or source Plasma data Chloride 98 - 107 mmoL/L Normal No Oct 29 [Moles/vo informati 2017 4:15 lume] in on in PM Serum or source Plasma data Carbon 21.0 - mmoL/L Normal No Oct 29 dioxide, 32.0 informati 2017 4:15 total on in PM [Moles/vo source lume] in data Serum or Plasma Creatinin 0.70 - mg/dL Normal No Oct 29 e 1.30 informati 2017 4:15 [Mass/vol on in PM ume] in source Serum or data Plasma Creatinin 50 - 200 ML/MIN Normal No Oct 29 e renal informati 2016 4:15 clearance on in PM source predicted data by Cockcroft -Gault formula Estimated >60 ML/MIN No REFERENCE Oct 29 informati RANGE: 2017 4:15 glomerula on in >60 PM r source ML/MIN/1. filtratio data 73 SQUARE n rate METERSIf (GF this patient is -A merican, then multiply theresult by 1.210. Globulin 1.3 - 3.2 gm/dL High No Oct 29 [Mass/vol informati 2016 4:15 ume] in on in PM Serum source data Glucose 74 - 106 mg/dL High No Oct 29 [Mass/vol informati 2016 4:15 ume] in on in PM Serum or source Plasma data Potassium 3.5 - 5.1 mmoL/L Normal No Oct 29 inform2016 4:15 [Moles/vo on in PM lume] in source Serum or data Plasma Sodium 136 - 145 mmoL/L Normal No Oct 29 [Moles/vo informati 2016 4:15 lume] in on in PM Serum or source Plasma data Aspartate 15 - 37 U/L Normal No Oct 29 informati 2016 4:15 aminotran on in PM sferase source [Enzymati data c activity/ volume] in Serum or Plasma Alanine 12 - 78 U/L Normal No Oct 29 aminotran informati 2016 4:15 sferase on in PM [Enzymati source c data activity/ volume] in Serum or Plasma Protein 6.4 - 8.2 gm/dL Normal No Oct 29 [Mass/vol informati 2016 4:15 ume] in on in PM Serum or source Plasma data Lipase [Enzymatic activity/volume] in Serum or Plasma Observa Value Referen Units Interpr Notes Date tion ce etation Range Lipase 73 - 393 U/L Normal No Oct 29 [Enzymati informati 2016 4:15 c on in PM activity/ source volume] data in Serum or Plasma CBC W Auto Differential panel in Blood Observa Value Referen Units Interpr Notes Date tion ce etation Range Basophils 0 - 0.2 K/MM3 Normal No Oct 29 informati 2016 4:15 [#/volume on in PM ] in source Blood by data Automated count Basophils 0.1 - 2.0 % Normal No Oct 29 informati 2016 4:15 leukocyte on in PM s in source Blood by data Automated count Eosinophi 0.0 - 0.4 K/mm3 Normal No Oct 29 ls informati 2016 4:15 [#/volume on in PM ] in source Blood by data Automated count Eosinophi 0.1 - % Normal No Oct 29 ls/100 12.0 informati 2016 4:15 leukocyte on in PM s in source Blood by data Automated count Granulocy 1.3 - 8.0 K/mm3 Normal No Oct 29 trung informati 2016 4:15 [#/volume on in PM ] in source Blood by data Automated count Granulocy 37.0 - % Normal No Oct 29 trung/100 80.0 informati 2016 4:15 leukocyte on in PM s in source Blood by data Automated count Hematocri 42.0 - % Normal No Oct 29 t [Volume 52.0 informati 2016 4:15 on in PM Fraction] source of Blood data Hemoglobi 14.1 - g/dL Normal No Oct 29 n 18.0 informati 2016 4:15 [Mass/vol on in PM ume] in source Blood data Lymphocyt 0.7 - 4.5 K/mm3 Normal No Oct 29 es informati 2016 4:15 [#/volume on in PM ] in source Unspecifi data ed specimen by Automated count Lymphocyt 10 - 50 % Normal No Oct 29 es inform2016 4:15 [#/volume on in PM ] in source Unspecifi data ed specimen by Automated count Erythrocy 27 - 31.2 pg Normal No Oct 29 te mean informati 2016 4:15 corpuscul on in PM ar source hemoglobi data n [Entitic mass] Erythrocy 31.8 - g/dl Normal No Oct 29 te mean 35.4 informati 2016 4:15 corpuscul on in PM ar source hemoglobi data n concentra tion [Mass/vol ume] by Automated count Erythrocy 82.2 - fl Normal No Oct 29 te mean 97.8 informati 2016 4:15 corpuscul on in PM ar volume source [Entitic data volume] by Automated count Monocytes 0.1 - 1.0 K/mm3 Normal No Oct 29 informati 2016 4:15 [#/volume on in PM ] in source Blood by data Automated count Monocytes 1.7 - 9.3 % Normal No Oct 29 informati 2016 4:15 leukocyte on in PM s in source Blood by data Automated count Platelet 7.4 - fl Low No Oct 29 mean 10.4 informati 2016 4:15 volume on in PM [Entitic source volume] data in Blood by Automated count Platelets 142 - 424 K/mm3 Normal No Oct 29 informati 2016 4:15 [#/volume on in PM ] in source Blood data Erythrocy 4.6 - 6.2 M/mm3 Normal No Oct 29 trung informati 2016 4:15 [#/volume on in PM ] in source Amniotic data fluid Erythrocy 11.5 - % Normal No Oct 29 te 17.5 informati 2016 4:15 distribut on in PM ion width source [Entitic data volume] by Automated count Leukocyte 4.8 - K/MM3 Normal No Oct 29 s 10.8 informati 2016 4:15 [#/volume on in PM ] in source Blood data Treponema pallidum IgG Ab [Presence] in Serum by Immunoassay Observa Value Referen Units Interpr Notes Date tion ce etation Range COLLECT NA No No No No Jan 30 OR informa informa informa informa 2014 tion in tion in tion in tion in 8:00 AM source source source source data data data data ETHNICI W No No No No Jan 30 TY informa informa informa informa 2014 tion in tion in tion in tion in 8:00 AM source source source source data data data data PURPOSE ROUTINE No No No No Sep 30 OF informa informa informa informa 2014 EXAM tion in tion in tion in tion in 8:00 AM source source source source data data data data SPECIME BLOOD No No No No Jan 30 N informa informa informa informa 2014 SOURCE tion in tion in tion in tion in 8:00 AM source source source source data data data data CHART [id number] No No No No Sep 30 NUMBER informa informa informa informa 2014 tion in tion in tion in tion in 8:00 AM source source source source data data data data Trepone NON-ROBERTO No No No METHOD Sep [address] informa informa informa OF 2014 pallidu tion in tion in tion in ANALYSI 8:00 AM m IgG source source source S: Ab data data data EIANORM [Presen AL ce] in RANGE: Serum NON-ROBERTO by CTIVE\. Immunoa br\This ssay report contain s patient informa tion that must be protect ed in [facility] with the Health Ins[employer] ce Portabi lity and Account ability Act. Treponema pallidum IgG Ab [Presence] in Serum by Immunoassay Observa Value Referen Units Interpr Notes Date tion ce etation Range COLLECT NA No No No No Sep 30 OR informa informa informa informa 2014 tion in tion in tion in tion in 8:00 AM source source source source data data data data ETHNICI W No No No No Sep 30 TY informa informa informa informa 2014 tion in tion in tion in tion in 8:00 AM source source source source data data data data PURPOSE ROUTINE No No No No Sep 30 OF informa informa informa informa 2014 EXAM tion in tion in tion in tion in 8:00 AM source source source source data data data data SPECIME BLOOD No No No No Sep 30 N informa informa informa informa 2014 SOURCE tion in tion in tion in tion in 8:00 AM source source source source data data data data CHART [id number] No No No No Sep 30 NUMBER informa informa informa informa 2014 tion in tion in tion in tion in 8:00 AM source source source source data data data data Trepone Pending No No No \.br\ Sep 30 ma informa informa informa is 2014 pallidu tion in tion in tion in report 8:00 AM m IgG source source source contain Ab data data data s [Presen patient ce] in Serum informa by tion Immunoa that ssay must be protect ed in [facility] with the Health Ins[employer] ce Portabi lity and Account ability Act.
--- OUTSIDE RECORDS SUMMARY | 2017-03-07 14:00 | External Medical Summary Rpt | CCD ---
Demographics Preferred Language Serbian Marital Status Unknown Mormon Affiliation Unknown Race Unknown Ethnic Group Unknown Author Author , MARIE SALAZAR Address Unknown Phone Immunization Unable to retrieve immunization data due to connection failure with Immunization Registry. Please try again later.
--- OUTSIDE RECORDS SUMMARY | 2017-03-07 14:00 | External Medical Summary Rpt | CCD ---
Demographics Preferred Language Luxembourgish Marital Status Unknown Hoahaoism Affiliation Unknown Race Unknown Ethnic Group Unknown Author Author , MARIE SALAZAR Address Unknown Phone Immunization Unable to retrieve immunization data due to connection failure with Immunization Registry. Please try again later.
--- OUTSIDE RECORDS SUMMARY | 2017-03-07 14:00 | External Medical Summary Rpt ---
[...] source source data data data data CHART [id number] No No No No Sep 30 NUMBER [...] tion that must be protect ed in [facility] with the Health Ins[employer] ce Portabi [...] source source data data data data CHART [id number] No No No No Sep 30 NUMBER [...] that ssay must be protect ed in [facility] with the Health Ins[employer] ce Portabi lity and Account ability Act.
[2017-03-07 14:16] VITALS: BP 159/70
--- NOTE | 2017-03-07 14:40 | RADIOLOGY REPORT PS360 ---
CHEST(2 VIEWS-NOT PORTABLE) HISTORY: Cough and shortness of breath with chest pain L SIDED BREAST PAIN ORDERING PHYSICIAN: Darcy Javier MD PATIENT AGE: 56 years COMPARISON: 03/31/2016 FINDINGS: The cardiomediastinal silhouette and pulmonary vascularity are within normal limits. The lungs are clear without infiltrates, suspicious nodules, or pleural effusions. No acute bony abnormalities. Postsurgical changes of the cervical spine. Incidental faint opacities are present overlying the left hemidiaphragm probably related to garment artifact as seen on the lateral view to be along the anterior chest IMPRESSION: No acute finding
== END 2017-03-07 14:16 | disposition home or self-care (01) ==
LOC: ER 12:27
PROVIDERS: Emergency Medicine
DX: M79.1 Myalgia (principal); G89.29 Other chronic pain; I25.10 Atherosclerotic heart disease of native coronary artery without angina pectoris; I25.2 Old myocardial infarction; I10 Essential (primary) hypertension; J44.9 Chronic obstructive pulmonary disease, unspecified; F17.210 Nicotine dependence, cigarettes, uncomplicated; Z79.899 Other long term (current) drug therapy

== ENCOUNTER → 2017-03-31 | Outpatient (CLI) | payer MEDICARE, MEDICAID ==
--- NOTE | 2017-03-31 21:12 | RADIOLOGY REPORT PS360 ---
PROCEDURE: 2-D M-mode and color Doppler study INDICATIONS FOR THE TEST: Chest pain+ COPD+ Heart Murmur Tobacco Smoking+ Palpitations+ Fatigue+ Syncope Edema Hypertension Diabetes Mellitus Rheumatic Fever SOB+BOWEN Obesity Hyperlipidemia Family History HD Additional History Dizziness, hx of syncope, hx of CVA, CAD (1 stent) PATIENT INFORMATION HEIGHT: 66 WEIGHT: 120 GENDER: Male B/P: 183/103 2-D/M-MODE INTERPRETATION: 2-D MEASUREMENTS OBSERVED VALUES IN CMS Right Ventricular Dimension (RVDd) 2.2 Interventricular Septum (Thickness)(IVsd) 0.9 Left Ventricular Internal Dimensions(LVIDd) 4.8 Left Ventricular Posterior Wall (Thickness)(LVPWd) 1.0 Aortic Root 2.5 Aortic Cusp Separation 2.0 Left Atrial Dimensions (LAD) 3.1 2D 1. Left atrium is mildly enlarged, left ventricle is normal size, there is no concentric left ventricular hypertrophy, visually estimated ejection fraction of 50% with no obvious regional wall motion abnormality. 2. The right atrium and right ventricle are mildly enlarged with normal contractility. 3. The aortic valve is thickened and calcified, leaflet continue to display mobility. 4. The mitral and tricuspid valve leaflets are minimally degenerative changes, there is no mitral or tricuspid valve stenosis. 5. The pulmonic valve is poorly visualized. 6. No significant pericardial effusion noted. DOPPLER INTERROGATION: Doppler interrogation of the aortic, mitral and tricuspid valvular presence of moderate aortic, moderate to severe mitral and moderate tricuspid regurgitation, calculated right ventricular systolic pressure of 40 mmHg consistent with mild pulmonary hypertension. Grade 1 diastolic dysfunction seen with tissue Doppler evidence of raised left atrial pressure. CONCLUSION: 1. Biatrial enlargement, normal left ventricular size, visually estimated ejection fraction 50% with no obvious regional wall motion abnormality. Grade 1 diastolic dysfunction seen with tissue Doppler evidence of raised left atrial pressure. 2. Moderate aortic, moderate to severe mitral and moderate tricuspid regurgitation, calculated right ventricular systolic pressure is 40 mmHg. 3. No significant pericardial effusion noted
--- NOTE | 2017-04-01 09:39 | RADIOLOGY REPORT PS360 ---
CARDIOLITE SPECT MYOCARDIAL PERFUSION SCAN, REST AND STRESS: EXERCISE STRESS [facility] REVIEW QGS EF AND WALL MOTION EVALUATION: QPS - PERFUSION EVALUATION HISTORY: Known cad and chest pain DOSE: 10.27 mCi technetium 99m mibi intravenously at rest followed by 32.0 mCi technetium 99m mibi following the intravenous ministration of 0.4 mg of Lexiscan. Resting blood pressure is 183/103. Stress blood pressure 174/101. FINDINGS: Ejection fraction is calculated to be 16% Stress images reveal severely decreased myocardial activity in the anterior apex and a portion of the inferior apical wall with decreased activity in the inferior wall. Rest images reveal mildly decreased activity in the apex worsened activity in the septum with slightly worse activity in the inferior wall. Gated images calculated ejection fraction of 16% with severe global hypokinesis IMPRESSION: High risk abnormal stress test. Reversible anterior apical ischemia. Reverse redistribution in the septum and inferior wall. Severe left ventricular dysfunction with diffuse severe hypokinesis.
--- NOTE | 2017-04-01 09:39 | RADIOLOGY REPORT PS360 ---
CARDIOLITE SPECT MYOCARDIAL PERFUSION SCAN, REST AND STRESS: EXERCISE STRESS [facility] REVIEW QGS EF AND WALL MOTION EVALUATION: QPS - PERFUSION EVALUATION HISTORY: Known cad and chest pain DOSE: 10.27 mCi technetium 99m mibi intravenously at rest followed by 32.0 mCi technetium 99m mibi following the intravenous ministration of 0.4 mg of Lexiscan. Resting blood pressure is 183/103. Stress blood pressure 174/101. FINDINGS: Ejection fraction is calculated to be 16% Stress images reveal severely decreased myocardial activity in the anterior apex and a portion of the inferior apical wall with decreased activity in the inferior wall. Rest images reveal mildly decreased activity in the apex worsened activity in the septum with slightly worse activity in the inferior wall. Gated images calculated ejection fraction of 16% with severe global hypokinesis IMPRESSION: High risk abnormal stress test. Reversible anterior apical ischemia. Reverse redistribution in the septum and inferior wall. Severe left ventricular dysfunction with diffuse severe hypokinesis.
== END ==
LOC: RAD 12:00
DX: R07.9 Chest pain, unspecified (principal); R94.31 Abnormal electrocardiogram [ECG] [EKG]; I25.10 Atherosclerotic heart disease of native coronary artery without angina pectoris; I11.9 Hypertensive heart disease without heart failure; Z91.19 Patient's noncompliance with other medical treatment and regimen
CPT/HCPCS: A9502; J2785

== ENCOUNTER → 2017-04-02 | Day surgery (SDC) | payer MEDICARE, MEDICAID ==
[2017-04-02 08:28] LABS: LYMPH # 2.1 K/mm3 (0.7-4.5); LYMPH % 18.9 % (10-50)
[2017-04-02 08:37] LABS: BUN 13 mg/dL (7-18); GFR (ESTIMATED) 87 ML/MIN (>60); HEMOGLOBIN 14.1 g/dL (14.1-18.0)
--- NOTE | 2017-04-02 09:58 | RADIOLOGY REPORT PS360 ---
CARDIAC CATHETERIZATION DATE OF CATHETERIZATION:04/02/2017 9:12 AM PROCEDURES: 1. Right heart catheterization 2. Left heart catheterization 3. Left ventriculogram 4. Selective coronary angiogram INDICATION FOR TEST: 1. Known coronary artery disease 2. Abnormal high risk Myoview 3. Systolic congestive heart failure ejection fraction of 16% 4. Pulmonary hypertension Informed consent was obtained prior to the procedure. COMPLICATIONS: None ESTIMATED BLOOD LOSS: Less than 10 ml. TECHNIQUE: One percent lidocaine was used to anesthetize the right anterior aspect of the right neck. The right internal jugular vein was accessed via the Seldinger technique and a 7 Albanian sheath was placed in the right internal jugular vein. Following this one percent lidocaine was used to anesthetize the right anterior aspect of the right wrist in the right radial artery was accessed via the Seldinger technique. A 6 Albanian hydrophilic sheath was placed in the right radial artery and a trap catheter was used to perform left heart catheterization left ventriculogram and selective coronary angiogram. Following the left heart catheterization a [place]-Toñito catheter is placed into the right internal jugular vein sheath and right heart catheterization was performed. At the end of procedure the arterial sheath was removed good hemostasis was achieved using TR banding patient transferred the postop holding area in stable condition for venous sheath removal ANGIOGRAPHIC RESULTS: 1. The left main artery has a distal eccentric 20% stenosis 2. The left anterior descending artery has has proximal 10% stenoses mid vessel 10% stenoses 3. The circumflex artery is a codominant vessel. The mid circumflex artery has a 30-40% stenosis. The distal terminal obtuse marginal artery is small vessel vasculopathy with diffuse 90% stenoses however the vessel is less than 1 mm in diameter. The first obtuse marginal artery is a large vessel and has an ostial 50% stenosis followed by a mid vessel 30% stenosis 4. The right coronary artery is a codominant vessel and has stents in the proximal and mid segment which are widely patent with very mild in-stent restenosis. Distally there are 30 and 40% stenoses. 5. The RAY ventriculogram reveals preserved ejection fraction estimated at 55% The left ventricular end-diastolic pressure less than 10 mmHg HEMODYNAMICS: Right atrial pressure is 3 mm Hg. Pulmonary arterial pressure is 25/15 mm Hg. Pulmonary artery occlusion pressure is 12 mm Hg. SATURATIONS: RA is 89 %. PA is 89 %. IMPRESSION: 1. Coronary artery disease as described above 2. Preserved ejection fraction 3. Basically normal intracardial pulmonary filling pressures 4. No evidence of intracardiac shunt PLAN: 1. Medical management 2. Risk factor modification 3. Avoidance of tobacco products 4. LDL less than 55
[2017-04-02 10:04] LABS: ARTERIAL O2 SAT CATH LAB 89.3 % (90-100); VENOUS O2 SAT CATH LAB 89.5 % (75-80)
[2017-04-02 13:46] VITALS: BP 125/73
== END ==
LOC: CATHLAB 07:46
PROVIDERS: Internal Medicine
PROC: B2111ZZ Fluoroscopy of Multiple Coronary Arteries using Low Osmolar Contrast (ICD-10-PCS; 2017-04-02)
PROC: B2151ZZ Fluoroscopy of Left Heart using Low Osmolar Contrast (ICD-10-PCS; 2017-04-02)
PROC: 4A023N8 Measurement of Cardiac Sampling and Pressure, Bilateral, Percutaneous Approach (ICD-10-PCS; principal; 2017-04-02 11:00)
DX: I25.119 Atherosclerotic heart disease of native coronary artery with unspecified angina pectoris (principal); Z72.0 Tobacco use; R94.39 Abnormal result of other cardiovascular function study; I50.20 Unspecified systolic (congestive) heart failure; I27.20 Pulmonary hypertension, unspecified; R06.09 Other forms of dyspnea; J44.9 Chronic obstructive pulmonary disease, unspecified; I11.9 Hypertensive heart disease without heart failure; I08.3 Combined rheumatic disorders of mitral, aortic and tricuspid valves
CPT/HCPCS: C1725; C1769; C1894; J1644; Q9967